=== PATIENT | female | born 1955 | race Caucasian/White ===

== ENCOUNTER 2023-10-19 18:07 | Observation (INO) | payer OTHER ==
[~2023-10-19] VITALS: Ht 157.5 cm; Wt 90.0 kg
[~2023-10-19 18:07] MED LIST: ASCO500T11 PO; ATE50T PO; DOXY-286 PO; ENAL1TAB46 PO; Glipizide PO; INSU70IN9 SC; METF500T PO
[2023-10-19 18:59] VITALS: PULSE 79; RESP 16; O2SAT 96
[2023-10-19 19:10] LABS: Basophils # (auto) 0.1 10 ^3/uL (0-0.2); Basophils % (auto) 0.6 % (0.0-2.0); Eosinophils # (auto) 0.2 10 ^3/uL (0-0.8); Eosinophils % (auto) 1.3 % (0.0-7.0); Hematocrit 37.5 % (36.0-46.0); Hemoglobin 13.2 g/dL (12.2-16.2); Lymphocytes # (auto) 1.1 10 ^3/uL (0.4-5.4); Lymphocytes % (auto) 6.6 % (10.0-50.0); Mean Corpuscular Hemoglobin 29.3 pg (28.0-32.0); Mean Corpuscular Hgb Conc. 35.1 g/dL (32.0-36.0); Mean Corpuscular Volume 83.6 fL (80.0-100.0); Monocytes # (auto) 0.9 10 ^3/uL (0-1.3); Monocytes % (auto) 5.6 % (0.0-12.0); Neutrophils # (auto) 14.2 10 ^3/uL (1.6-8.6); Neutrophils % (auto) 85.9 % (37.0-80.0); Nucleated Red Blood Cells % 0.3 %; Red Blood Cells 4.49 10^6/uL (4.0-5.20); Red Cell Distribution Width 18.5 % (11.8-14.3); White Blood Cell 16.6 10^3/uL (4.4-10.8)
[2023-10-19] MEDS: PIPERACILLIN-TAZOB 3.375GM 100 ML IV ONE (19:10)
[2023-10-19 19:15] VITALS: PULSE 79; RESP 16; O2SAT 96
[2023-10-19] MEDS: VANCOMYCIN 1GM/200ML 200 ML IV ONE (19:38)
[2023-10-19 20:00] LABS: Alanine Aminotransferase 20 U/L (7-40); Albumin 3.5 g/dL (3.2-4.8); Alkaline Phosphatase 163 U/L (46-116); Anion Gap 11 (5-15); Aspartate Aminotransferase 19 U/L (13-40); BUN/Creatinine Ratio 12.3 (10.0-20.0); Bilirubin, Total 0.8 mg/dL (0.2-1.0); Blood Urea Nitrogen 15 mg/dL (9-23); Carbon Dioxide 17 mmol/L (20-30); Chloride 112 mmol/L (98-107); Glucose 295 mg/dL (74-106); Sodium 140 mmol/L (136-145); Total Protein 5.8 g/dL (5.7-8.2)
[2023-10-19 20:09] LABS: Potassium 2.1 mmol/L (3.5-5.1)
[2023-10-19] MEDS: POTASSIUM CHL 20 Meq TABLET PO ONE (20:54)
[2023-10-19] MEDS: ASPirin 81 mg TAB PO ONE (23:18)
[2023-10-19] MEDS: NITROGLYCERIN 2% OINT 1GM PKG TD ONE (23:24)
[2023-10-20] VITALS (8 sets, daily range): BP systolic 135–152; BP diastolic 75–87; PULSE 82–89; RESP 16–24; TEMP 97.8–98.5; O2SAT 95–99
[2023-10-20] MEDS ORDERED: POTASSIUM EFFERVESENT TAB 25 MEQ GT ONE (03:00)
[2023-10-20] MEDS ORDERED: VANCOMYCIN PER PHARMACY 0 MG IV SCH (04:15)
[2023-10-20] MEDS ORDERED: DEXTROSE (50%) 50ML SYRG IV PRN (04:15)
[2023-10-20] MEDS ORDERED: ONDANSETRON HCL 4 MG/2 ML VIAL IV PRN (04:15)
[2023-10-20] MEDS: SODIUM CHLORIDE 0.9% 1,000 ML IV SCH (04:45)
[2023-10-20] MEDS ORDERED: NITROGLYCERIN 0.4 MG SL TAB SL PRN (04:45)
[2023-10-20] MEDS: ENOXAPARIN SOD 80 MG/0.8ML SYRINGE SC ONE (05:00)
[2023-10-20] MEDS: POTASSIUM CHL 20MEQ/100ML 100 ML IV SCH (05:15)
[2023-10-20] MEDS ORDERED: POTASSIUM CHL 20 Meq TABLET PO ONE (05:15)
[2023-10-20] MEDS: POTASSIUM CHL 20 Meq TABLET PO ONE (05:45)
[2023-10-20 06:03] LABS: Basophils # (auto) 0.1 10 ^3/uL (0-0.2); Basophils % (auto) 0.6 % (0.0-2.0); Eosinophils # (auto) 0.3 10 ^3/uL (0-0.8); Eosinophils % (auto) 1.9 % (0.0-7.0); Hematocrit 34.5 % (36.0-46.0); Hemoglobin 12.3 g/dL (12.2-16.2); Lymphocytes % (auto) 6.7 % (10.0-50.0); Mean Corpuscular Hemoglobin 30.1 pg (28.0-32.0); Mean Corpuscular Hgb Conc. 35.7 g/dL (32.0-36.0); Mean Corpuscular Volume 84.3 fL (80.0-100.0); Monocytes # (auto) 0.9 10 ^3/uL (0-1.3); Monocytes % (auto) 6.2 % (0.0-12.0); Neutrophils # (auto) 12.2 10 ^3/uL (1.6-8.6); Neutrophils % (auto) 84.6 % (37.0-80.0); Nucleated Red Blood Cells % 0.1 %; Red Blood Cells 4.09 10^6/uL (4.0-5.20); Red Cell Distribution Width 18.1 % (11.8-14.3); White Blood Cell 14.4 10^3/uL (4.4-10.8)
[2023-10-20] MEDS ORDERED: BENA-36 PO (06:46)
[2023-10-20] MEDS ORDERED: AMLO1TAB23 PO (06:47)
[2023-10-20] MEDS: ACCU-CHEK COMFORT CURVE STRIP VI SCH (07:00)
[2023-10-20] MEDS: InsuLIN REG 1unit/0.01ml Soln (100units/ml) SC SCH ×2 (07:26→22:38)
[2023-10-20 07:37] LABS: Erythrocyte Sedimentation Rate 54 mm/hr (0-20)
[2023-10-20] MEDS: PIPERACILLIN-TAZOB 3.375GM 100 ML IV SCH ×2 (07:52→17:08)
[2023-10-20] MEDS: MORPHINE SULFATE INJ 2 MG/ml SYRG IV PRN (08:43)
[2023-10-20] MEDS ORDERED: ENOXAPARIN SOD 40 MG/0.4 ML SYRINGE SC SCH (10:00)
[2023-10-20] MEDS: BENAZEPRIL HCL 10 MG TAB PO SCH (11:08)
[2023-10-20] MEDS: IOHEXOL 350 MG/ML 100ML IJ ONE (17:11)
[2023-10-20 17:33] LABS: Chloride 110 mmol/L (98-107); Sodium 139 mmol/L (136-145)
[2023-10-20 17:34] LABS: Anion Gap 11 (5-15); Carbon Dioxide 18 mmol/L (20-30)
[2023-10-20 17:35] LABS: Calcium 9.7 mg/dL (8.7-10.4)
[2023-10-20 17:39] LABS: Glucose 176 mg/dL (74-106)
[2023-10-20 17:40] LABS: BUN/Creatinine Ratio 8.8 (10.0-20.0); Blood Urea Nitrogen 10 mg/dL (9-23)
[2023-10-20 17:41] LABS: Potassium 2.5 mmol/L (3.5-5.1)
[2023-10-20] MEDS: POTASSIUM EFFERVESENT TAB 25 MEQ PO ONE (17:45)
[2023-10-20 17:50] LABS: CRP High Sensitivity 11.77 mg/dL (<1.0)
[2023-10-20] MEDS ORDERED: VANCOMYCIN 1GM/200ML 200 ML IV SCH (18:00)
[2023-10-20] MEDS: VANCOMYCIN 1GM/200ML 200 ML IV SCH (20:18)
[2023-10-20] MEDS: HYDROcodone-ACET 5/325MG TAB PO PRN (21:16)
[2023-10-20] MEDS: NYSTATIN TOPICAL POWDER 15GM TOP SCH (22:00)
[2023-10-20] MEDS: ENOXAPARIN SOD 100 MG/1 ML SYRINGE SC SCH (23:17)
[2023-10-21] VITALS (7 sets, daily range): BP systolic 116–167; BP diastolic 73–87; PULSE 74–88; RESP 18–24; TEMP 97.3–98.1; O2SAT 97–100
[2023-10-21] MEDS ORDERED: APIX5TAB PO (07:11)
[2023-10-21] MEDS: hydrALAZINE HCL 20 MG/ML VL IV PRN (07:17)
[2023-10-21] MEDS ORDERED: AUG875T PO (07:59)
[2023-10-21] MEDS ORDERED: DOXY-286 PO (07:59)
[2023-10-21 08:14] LABS: Basophils # (auto) 0.1 10 ^3/uL (0-0.2); Basophils % (auto) 0.7 % (0.0-2.0); Eosinophils # (auto) 0.1 10 ^3/uL (0-0.8); Hematocrit 34.4 % (36.0-46.0); Hemoglobin 12.2 g/dL (12.2-16.2); Lymphocytes # (auto) 1.1 10 ^3/uL (0.4-5.4); Lymphocytes % (auto) 8.5 % (10.0-50.0); Mean Corpuscular Hemoglobin 30.2 pg (28.0-32.0); Mean Corpuscular Hgb Conc. 35.5 g/dL (32.0-36.0); Mean Corpuscular Volume 85.2 fL (80.0-100.0); Monocytes # (auto) 0.8 10 ^3/uL (0-1.3); Monocytes % (auto) 6.1 % (0.0-12.0); Neutrophils # (auto) 11.1 10 ^3/uL (1.6-8.6); Neutrophils % (auto) 83.7 % (37.0-80.0); Nucleated Red Blood Cells % 0.1 %; Red Blood Cells 4.03 10^6/uL (4.0-5.20); Red Cell Distribution Width 18.6 % (11.8-14.3); White Blood Cell 13.3 10^3/uL (4.4-10.8)
[2023-10-21 08:36] LABS: Alanine Aminotransferase 16 U/L (7-40); Albumin 3.3 g/dL (3.2-4.8); Alkaline Phosphatase 156 U/L (46-116); Anion Gap 12 (5-15); Aspartate Aminotransferase 22 U/L (13-40); BUN/Creatinine Ratio 10.3 (10.0-20.0); Bilirubin, Total 0.5 mg/dL (0.2-1.0); Blood Urea Nitrogen 11 mg/dL (9-23); Carbon Dioxide 19 mmol/L (20-30); Chloride 110 mmol/L (98-107); Glucose 154 mg/dL (74-106); Potassium 2.7 mmol/L (3.5-5.1); Sodium 141 mmol/L (136-145); Total Protein 5.7 g/dL (5.7-8.2)
[2023-10-21] MEDS: POTASSIUM CHL 20 Meq TABLET PO ONE (10:57)
[2023-10-21] MEDS: POTASSIUM CHLORIDE 60 MEQ, LIDOCAINE 1% (LOCAL ANESTH.) 6 ML in SODIUM CHL 0.9% 500 ML IV ONE (14:15)
== END 2023-10-21 17:45 | disposition home health service (06) ==
LOC: EDUNIT# 18:07 → ER 18:07 → EDBD 18:07 → INTOOBSV 10-20 04:37 → TELE 10-20 04:37 → TELE-WESTW 10-20 06:40
PROVIDERS: ADMIT Hospitalist; ATTEND Hospitalist
DX: S81.801A Unspecified open wound, right lower leg, initial encounter (principal); S21.001A Unspecified open wound of right breast, initial encounter; L03.115 Cellulitis of right lower limb; L03.031 Cellulitis of right toe; L97.519 Non-pressure chronic ulcer of other part of right foot with unspecified severity; L98.419 Non-pressure chronic ulcer of buttock with unspecified severity; I21.4 Non-ST elevation (NSTEMI) myocardial infarction; I10 Essential (primary) hypertension; E66.01 Morbid (severe) obesity due to excess calories; E11.621 Type 2 diabetes mellitus with foot ulcer; I82.431 Acute embolism and thrombosis of right popliteal vein; E11.51 Type 2 diabetes mellitus with diabetic peripheral angiopathy without gangrene; Z68.36 Body mass index [BMI] 36.0-36.9, adult; Z86.14 Personal history of Methicillin resistant Staphylococcus aureus infection; Z79.4 Long term (current) use of insulin; X58.XXXA Exposure to other specified factors, initial encounter; Y93.89 Activity, other specified; Y92.89 Other specified places as the place of occurrence of the external cause; Y99.8 Other external cause status
CPT/HCPCS: 36415; 71045; 71260; 73660; 73718; 74177; 80048; 80053; 80202; 82962; 83605; 83735; 83880; 84484; 85025; 85379; 85652; 86141; 87040; 87077; 87186; 87205; 93005; 93925; 93970; 96361; 96365; 96366; 96368; 96372; 96375; 99285; G0378; J0360; J1650; J1815; J2270; J2543; J3370; J3480; J7040; Q9967; J2001

== ENCOUNTER 2024-01-25 12:54 | Inpatient (IN) | payer OTHER ==
[~2024-01-25] VITALS: Ht 154.9 cm; Wt 90.2 kg
[~2024-01-25 12:54] MED LIST changes: +AMLO1TAB23 PO; +APIX5TAB PO; -ASCO500T11 PO; -ATE50T PO; +AUG875T PO; +BENA-36 PO; -ENAL1TAB46 PO; -Glipizide PO
--- NOTE | 2024-01-25 13:13 | ECG ---
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
[2024-01-25] MEDS ORDERED: InsuLIN REG 1unit/0.01ml Soln (100units/ml) IV ONE (13:15)
--- NOTE | 2024-01-25 13:20 | ED.PDOC ---
History of Present Illness HPI Comments This is 68-year-old female who comes in to the ED via EMS with chief complain of anxiety. Patient has a past medical history relevant for type 2 diabetes, hypertension, right lower DVT. 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 Patient currently states feeling better, denies any significant chest pain, shortness of breath, dizziness, lightheadedness, headache, abdominal pain, nausea, vomiting. Chief Complaint: Anxiety Time Seen by MD: 13:00 Primary Care Provider: SELMA Reviewed Notes: Nurses Notes Allergies: Coded Allergies: NO KNOWN ALLERGIES (Unverified , 11/14/10) Home Meds Active Scripts Doxycycline Hyclate (DOXYCYCLINE HYCLATE) 100 Mg Tab, 1 TAB PO BID for 14 Days, #28 TAB Prov:SHARON SOMMER MD 10/21/23 Amoxicillin & Pot Clavulanate (AUGMENTIN TABLET) 875 Mg Tb, 875 MG PO BID for 14 Days, #28 TAB Prov:SHARON SOMMER MD 10/21/23 Apixaban Base (ELIQUIS) 5 Mg Tab, 10 MG PO BID for 7 Days, #28 TAB 10MG BID X 7 DAYS THEN 5MG PO BID FOR AT LEAST 6 MONTHS FOR DVT/PE TREATMENT Prov:SHARON SOMMER MD 10/21/23 Apixaban Base (ELIQUIS) 5 Mg Tab, 5 MG PO BID for 30 Days, #60 TAB 2 Refills Prov:SHARON SOMMER MD 10/21/23 Metformin Hydrochloride (Glucophage) 500 Mg Tb, 1000 MG PO IBID for 30 Days, TAB Prov:TAQUERIA POSADAS MD 11/29/13 Insulin Isophane & Reg (Human) (Humulin 70/30) 100 Units/1 Ml Units, 20 UNITS SC IBID for 30 Days, INJ Prov:TAQUERIA POSADAS MD 11/29/13 Reported Medications Amlodipine Besylate (Amlodipine Besylate) 10 Mg Tab, 1 TAB PO DAILY, #30 TAB 5 Refills 10/20/23 Benazepril Hcl (Benazepril Hcl) 20 Mg Tab, 1 TAB PO BID, #30 TAB 5 Refills 10/20/23 Information Source: Patient Mode of Arrival: EMS Severity: Mild Timing: Hours Duration: Since onset Past Medical History PAST MEDICAL HISTORY: Anemia, DM, HTN, UTI'S 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 OPERATOR History, Uterine Fibroids Family History Family History: No family hx of HTN Social History Smoker: Non-Smoker Alcohol: Denies ETOH Use Drugs: Denies Drug Use Lives In: Home Constitutional: denies: chills, diaphoresis, fatigue, fever, malaise, sweats, weakness, others EENTM: reports: blurred vision; denies: double vision, ear bleeding, ear discharge, ear drainage, ear pain, ear ringing, eye pain, eye redness, hearing loss, mouth pain, mouth swelling, nasal discharge, nose bleeding, nose congestion, nose pain, photophobia, tearing, throat pain, throat swelling, voice changes, others Respiratory: reports: shortness of breath; denies: cough, hemoptysis, orthopnea, SOB at rest, SOB with excertion, stridor, wheezing, others Cardiovascular: reports: dizzy spells; denies: chest pain, diaphoresis, Dyspnea on exertion, edema, irregular heart beat, left arm pain, lightheadedness, palpitations, PND, syncope, others Gastrointestinal: denies: abdomen distended, abdominal pain, blood streaked bowels, constipated, diarrhea, dysphagia, difficulty swallowing, hematemesis, melena, nausea, poor appetite, poor fluid intake, rectal bleeding, rectal pain, vomiting, others Genitourinary: denies: abnormal vagina bleeding, burning, dyspareunia, dysuria, flank pain, frequency, hematuria, incontinence, pain, , vagina discharge, urgency, others Neurological: reports: dizziness, fainting, headache; denies: left sided numbness, left sided weakness, numbness, paresthesia, pre-existing deficit, right sided numbness, right sided weakness, seizure, speech problems, tingling, tremors, weakness, others Musculoskeletal: denies: back pain, gout, joint pain, joint swelling, muscle pain, muscle stiffness, neck pain, others Integumetry: denies: bruises, change in color, change in hair/nails, dryness, laceration, lesions, lumps, rash, wounds, others Allergic/Immunocompromised: denies: Difficulty Healing, Frequent Infections, Hives, Itching, others Hematologic/Lymphatic: denies: anemia, blood clots, easy bleeding, easy bruising, swollen glands, others Endocrine: denies: excessive hunger, excessive sweating, excessive thirst, excessive urination, flushing, intolerance to cold, intolerance to heat, unexplained weight gain, unexplained weight loss, others Psychiatric: denies: anxiety, bipolar disorder, depression, hopeless, panic disorder, schizophrenia, sleepless, suicidal, others Physical Exam General Appearance: Mild Distress, Obese HEENT: Normal ENT Inspection, Pharynx Normal, TMs Normal Neck: Full Range of Motion, Non-Tender, Normal, Normal Inspection Respiratory: Chest Non-Tender, Lungs Clear, No Accessory Muscle Use, No Respiratory Distress, Normal Breath Sounds Cardiovascular: No Edema, No JVD, No Murmur, No Gallop, Normal Peripheral Pulses, Regular Rate/Rhythm Breast Exam: Deferred Gastrointestinal: No Organomegaly, Non Tender, No Pulsatile Mass, Normal Bowel Sounds, Soft Genitalia: Deferred Pelvic: Deferred Rectal: Deferred Extremities: No calf tenderness, Normal capillary refill, Normal inspection, Normal range of motion, Non-tender, No pedal edema 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 Was a procedure done?: No Differential Dx Considerations may include: Anxiety disorder, panic attack, hyperglycemia due to type 2 diabetes, uncontrolled type 2 diabetes, sinus tachycardia, electrolyte imbalance, X-Ray, Labs, Meds, VS Vital Signs Date Time Temp Pulse Resp B/P (MAP) Pulse Ox O2 Delivery O2 Flow Rate FiO2 01/25/24 15:49 Room Air* 0 21 01/25/24 14:15 106 18 100 Room Air 01/25/24 14:15 97.4 106 18 124/67 (86) 100 97.4 01/25/24 13:11 106 01/25/24 12:57 98.9 106 16 100/64 (76) 99 Lab Test 01/25/24 14:04 Range/Units White Blood Count 10.4 4.4-10.8 10^3/uL Red Blood Count 3.92 L 4.0-5.20 10^6/uL Hemoglobin 12.7 12.2-16.2 g/dL Hematocrit 38.7 36.0-46.0 % Mean Corpuscular Volume 98.8 80.0-100.0 fL Mean Corpuscular Hemoglobin 32.4 H 28.0-32.0 pg Mean Corpuscular Hemoglobin Concent 32.8 32.0-36.0 g/dL Red Cell Distribution Width 18.8 H 11.8-14.3 % Platelet Count 333 140-450 10^3/uL Mean Platelet Volume 7.6 6.9-10.8 fL Neutrophils (%) (Auto) 85.4 H 37.0-80.0 % Lymphocytes (%) (Auto) 8.1 L 10.0-50.0 % Monocytes (%) (Auto) 4.9 0.0-12.0 % Eosinophils (%) (Auto) 0.5 0.0-7.0 % Basophils (%) (Auto) 1.1 0.0-2.0 % Neutrophils # (Auto) 8.9 H 1.6-8.6 10 ^3/uL Lymphocytes # (Auto) 0.8 0.4-5.4 10 ^3/uL Monocytes # (Auto) 0.5 0-1.3 10 ^3/uL Eosinophils # (Auto) 0.1 0-0.8 10 ^3/uL Basophils # (Auto) 0.1 0-0.2 10 ^3/uL Nucleated Red Blood Cells 0.0 % Platelet Estimate Adequate Schistocytes Few Sodium Level 138 136-145 mmol/L Potassium Level 5.2 H 3.5-5.1 mmol/L Chloride Level 108 H 98-107 mmol/L Carbon Dioxide Level 24 20-31 mmol/L Anion Gap 6 5-15 Blood Urea Nitrogen 26 H 9-23 mg/dL Creatinine 1.33 H 0.550-1.02 mg/dL Glomerular Filtration Rate Calc 44 >90 mL/min BUN/Creatinine Ratio 19.5 10.0-20.0 Serum Glucose 357 H 74-106 mg/dL Calcium Level 9.8 8.7-10.4 mg/dL Troponin I High Sensitivity 474 *H </=34 ng/L B-Type Natriuretic Peptide 530.39 0-100 pg/mL Current Medications Medications (Trade) Dose Ordered Sig/Kate Route Start Time Stop Time Status Last Admin Sodium Chloride 1,000 ml @ 1,000 mls/hr Q1H ONCE IV 01/25/24 13:15 01/25/24 14:14 DC 01/25/24 15:43 Ketorolac Tromethamine (Toradol Injection) 15 mg ONCE ONCE IV 01/25/24 13:45 01/25/24 14:05 DC 01/25/24 15:43 Aspirin 325 mg ONCE ONCE PO 01/25/24 16:15 01/25/24 16:19 DC 01/25/24 16:22 On my initial assessment, patient states feeling better denied any significant shortness of breath, chest pain, headache. Blood glucose was 365, other vital signs were stable. We will order CBC, BMP, BNP, UA, chest x-ray, EKG, troponins, we will also administer 1 L of NS. We will continue to reassess. On reassessment, EKG showed T-wave flattening in anterior lateral leads, no ST wave changes, troponins were elevated to the 400s, chest x-ray shows cardiomegaly, patient states having sporadic chest pain , who gave aspirin 325 mg p.o., patient is currently not complaining of chest pain, is noted that her kidney function has worsened compared to last time, BNP was also elevated, glucose was also around 300s, we will put the patient for admission for Cardiology be consultation due to NSTEMI likely related to BERNADINE and uncontrolled type 2 diabetes. Images Reviewed?: Images reviewed and evaluated by me Time of 1ST Reevaluation: 13:14 Reevaluation 1ST: Unchanged Patient Education/Counseling: Diagnosis, Treatment Family Education/Counseling: No Family Present Departure 1 Departure Time of Disposition: 16:38 Impression: Primary Impression: Non-STEMI (non-ST elevated myocardial infarction) Additional Impressions: Diabetes mellitus out of control BERNADINE (acute kidney injury) Disposition: 09 ADMITTED INPATIENT Condition: Guarded Critical Care Note Critical Care Time?: No Stability Stability form required: No Heart Score Heart Score: Heart Score Response (Comments) Value History Slightly Suspicious 0 EKG Repolarization Disturb 1 Age >65 2 Risk Factors >3 or Hx ASHD 2 Troponin >3 x's Normal limit 2 Total 7 LEISA LARA RESIDENT Jan 25, 2024 13:20
--- NOTE | 2024-01-25 13:47 | DVH ---
CHEST RADIOGRAPH Indication:sob Technique: Single frontal view of the chest was obtained COMPARISON: XY CHEST PORTABLE on DOS: 10/19/23 FINDINGS: Lines and Tubes: None Lungs: Clear Pleura: No effusion. No pneumothorax. Cardiomediastinal contours: Cardiomegaly Bones: Unremarkable IMPRESSION: No acute disease.
[2024-01-25 14:18] LABS: Basophils # (auto) 0.1 10 ^3/uL (0-0.2); Basophils % (auto) 1.1 % (0.0-2.0); Eosinophils # (auto) 0.1 10 ^3/uL (0-0.8); Eosinophils % (auto) 0.5 % (0.0-7.0); Hematocrit 38.7 % (36.0-46.0); Hemoglobin 12.7 g/dL (12.2-16.2); Lymphocytes # (auto) 0.8 10 ^3/uL (0.4-5.4); Lymphocytes % (auto) 8.1 % (10.0-50.0); Mean Corpuscular Hemoglobin 32.4 pg (28.0-32.0); Mean Corpuscular Hgb Conc. 32.8 g/dL (32.0-36.0); Mean Corpuscular Volume 98.8 fL (80.0-100.0); Monocytes # (auto) 0.5 10 ^3/uL (0-1.3); Monocytes % (auto) 4.9 % (0.0-12.0); Neutrophils # (auto) 8.9 10 ^3/uL (1.6-8.6); Neutrophils % (auto) 85.4 % (37.0-80.0); Platelet Count (auto) 333 10^3/uL (140-450); Red Blood Cells 3.92 10^6/uL (4.0-5.20); Red Cell Distribution Width 18.8 % (11.8-14.3); White Blood Cell 10.4 10^3/uL (4.4-10.8)
[2024-01-25 14:29] LABS: Chloride 108 mmol/L (98-107); Potassium 5.2 mmol/L (3.5-5.1); Sodium 138 mmol/L (136-145)
[2024-01-25 14:30] LABS: Anion Gap 6 (5-15); Carbon Dioxide 24 mmol/L (20-31)
[2024-01-25 14:31] LABS: Calcium 9.8 mg/dL (8.7-10.4)
[2024-01-25 14:36] LABS: BUN/Creatinine Ratio 19.5 (10.0-20.0); Blood Urea Nitrogen 26 mg/dL (9-23); Glucose 357 mg/dL (74-106)
[2024-01-25 14:39] LABS: Platelet Estimate Adequate
[2024-01-25] MEDS: ENOXAPARIN SOD 100 MG/1 ML SYRINGE SC ONE (15:34)
[2024-01-25] MEDS: KETOROLAC TROMETH 30 MG/ML 1ML VIAL IV ONE (15:43)
[2024-01-25] MEDS: SODIUM CHLORIDE 0.9% 1,000 ML IV ONE ×2 (15:43→21:57)
[2024-01-25] MEDS: ASPirin 325 MG TAB PO ONE (16:22)
[2024-01-25] MEDS ORDERED: MORPHINE SULFATE INJ 2 MG/ml SYRG IV PRN ×2 (16:45)
[2024-01-25] MEDS ORDERED: ACETAMINOPHEN 325 MG TAB PO PRN (16:45)
[2024-01-25] MEDS ORDERED: NITROGLYCERIN 0.4 MG SL TAB SL PRN (16:45)
[2024-01-25] MEDS ORDERED: HYDROcodone-ACET 5/325MG TAB PO PRN (16:45)
[2024-01-25] MEDS: InsuLIN REG 1unit/0.01ml Soln (100units/ml) SC ONE (16:56)
[2024-01-25] MEDS ORDERED: DEXTROSE (50%) 50ML SYRG IV PRN (17:00)
[2024-01-25] MEDS: ACCU-CHEK COMFORT CURVE STRIP VI SCH (17:00)
[2024-01-25] MEDS: InsuLIN REG 1unit/0.01ml Soln (100units/ml) SC SCH ×2 (17:00→22:27)
--- NOTE | 2024-01-25 17:00 | DVHHP2 ---
Admitting Diagnosis: NSTEMI History of Present Illness HPI Patient is a 68F with PMH of T2DM on glargine and metformin, history of cellulitis, history of DVT who presents with worsening shortness of breath over the past month. Patient presented to the ER for this reason and was noted to have elevated troponin without chest pain. She denies history of smoking, cardiac history such as TN. At bedside, there is no tenderness to palpation to the chest. Patient notes she has not been fully compliant with her diabetes medications. Home Meds Active Scripts Doxycycline Hyclate (DOXYCYCLINE HYCLATE) 100 Mg Tab, 1 TAB PO BID for 14 Days, #28 TAB Prov:SHARON SOMMER MD 10/21/23 Amoxicillin & Pot Clavulanate (AUGMENTIN TABLET) 875 Mg Tb, 875 MG PO BID for 14 Days, #28 TAB Prov:SHARON SOMMER MD 10/21/23 Apixaban Base (ELIQUIS) 5 Mg Tab, 10 MG PO BID for 7 Days, #28 TAB 10MG BID X 7 DAYS THEN 5MG PO BID FOR AT LEAST 6 MONTHS FOR DVT/PE TREATMENT Prov:SHARON SOMMER MD 10/21/23 Apixaban Base (ELIQUIS) 5 Mg Tab, 5 MG PO BID for 30 Days, #60 TAB 2 Refills Prov:SHARON SOMMER MD 10/21/23 Metformin Hydrochloride (Glucophage) 500 Mg Tb, 1000 MG PO IBID for 30 Days, TAB Prov:TAQUERIA POSADAS MD 11/29/13 Insulin Isophane & Reg (Human) (Humulin 70/30) 100 Units/1 Ml Units, 20 UNITS SC IBID for 30 Days, INJ Prov:TAQUERIA POSADAS MD 11/29/13 Reported Medications Amlodipine Besylate (Amlodipine Besylate) 10 Mg Tab, 1 TAB PO DAILY, #30 TAB 5 Refills 10/20/23 Benazepril Hcl (Benazepril Hcl) 20 Mg Tab, 1 TAB PO BID, #30 TAB 5 Refills 10/20/23 Past Medical History Endocrine: IDDM Patient Family History: Cancer G8 MOTHER Smoker: No Hx (Negative) Review of Systems Pulmonary/Respiratory: Dyspnea H&P Exam Vital Signs Vital Signs Date Time Temp Pulse Resp B/P (MAP) Pulse Ox O2 Delivery O2 Flow Rate FiO2 01/25/24 15:49 Room Air* 0 21 01/25/24 14:15 106 18 100 01/25/24 14:15 97.4 124/67 (86) 97.4 General Appeara: Well developed Pulmonary/Respiratory: Normal inspection, Normal breath sounds Cardiovascular/Chest: Normal inspection, Tachycardia Labs/Xrays Labs Test 01/25/24 16:38 01/25/24 14:04 Range/Units White Blood Count 10.4 4.4-10.8 10^3/uL Red Blood Count 3.92 L 4.0-5.20 10^6/uL Hemoglobin 12.7 12.2-16.2 g/dL Hematocrit 38.7 36.0-46.0 % Mean Corpuscular Volume 98.8 80.0-100.0 fL Mean Corpuscular Hemoglobin 32.4 H 28.0-32.0 pg Mean Corpuscular Hemoglobin Concent 32.8 32.0-36.0 g/dL Red Cell Distribution Width 18.8 H 11.8-14.3 % Platelet Count 333 140-450 10^3/uL Mean Platelet Volume 7.6 6.9-10.8 fL Neutrophils (%) (Auto) 85.4 H 37.0-80.0 % Lymphocytes (%) (Auto) 8.1 L 10.0-50.0 % Monocytes (%) (Auto) 4.9 0.0-12.0 % Eosinophils (%) (Auto) 0.5 0.0-7.0 % Basophils (%) (Auto) 1.1 0.0-2.0 % Neutrophils # (Auto) 8.9 H 1.6-8.6 10 ^3/uL Lymphocytes # (Auto) 0.8 0.4-5.4 10 ^3/uL Monocytes # (Auto) 0.5 0-1.3 10 ^3/uL Eosinophils # (Auto) 0.1 0-0.8 10 ^3/uL Basophils # (Auto) 0.1 0-0.2 10 ^3/uL Nucleated Red Blood Cells 0.0 % Platelet Estimate Adequate Schistocytes Few Sodium Level 138 136-145 mmol/L Potassium Level 5.2 H 3.5-5.1 mmol/L Chloride Level 108 H 98-107 mmol/L Carbon Dioxide Level 24 20-31 mmol/L Anion Gap 6 5-15 Blood Urea Nitrogen 26 H 9-23 mg/dL Creatinine 1.33 H 0.550-1.02 mg/dL Glomerular Filtration Rate Calc 44 >90 mL/min BUN/Creatinine Ratio 19.5 10.0-20.0 Serum Glucose 357 H 74-106 mg/dL Calcium Level 9.8 8.7-10.4 mg/dL B-Type Natriuretic Peptide 530.39 0-100 pg/mL Assessment/Plan Primary Diagnosis 1. NSTEMI 2' Diagnosis/Co-morbidities 2. Type 2 DM 3. BERNADINE 4. Morbid Obesity Plan Admit to telemetry. Cardiology Dr. Diaz consulted. Heparin drip started. Patient refused lovenox. Trend troponin. Insulin sliding scale. Glargine 15U qbedtime. Hgb A1c ordered. Nephrology consulted for BERNADINE. US renal ordered. 1L NS bolus. Plan discussed with: Patient DEJAN KRAMER DO Jan 25, 2024 17:00
[2024-01-25] MEDS: HEPARIN SODIUM (PORCINE) 5000 UNITS/ML 1ML VIAL IV ONE (17:44)
[2024-01-25] MEDS: HEPARIN DRIP/D5W 100UNITS/ML 250 ML IV SCH (17:45)
[2024-01-25 18:11] LABS: INR 1.08 (0.9-1.15); Prothrombin Time 11.4 sec (9.3-11.8)
--- NOTE | 2024-01-25 21:09 | DVHSR ---
APPROVED REPORT EXAM: Two-dimensional and M-mode echocardiogram with Doppler and color Doppler. Blood Pressure: 124/67 mmHg INDICATION NSTEMI RISK FACTORS Obesity: Height: 5'1", Weight: 198 DIMENSIONS LVDd3.2 (3.8-5.7cm)LA (2D)3.3 (1.9-4.0cm)Aortic Root3.6 (2.0-3.7cm) LVDs2.3 (2.5-4.0cm)LA (MM) (1.9-4.0cm)Aortic Cusp Exc1.6 (1.5-2.0cm) EF (%) 54.0 (55-70%)Rt. Atrium5.3 (1.9-4.0cm)Asc. Aorta cm IVSd1.2 (0.7-1.1cm)RV (D)4.7 (1.8-2.4cm) PWd1.2 (0.7-1.1cm) Mitral Valve MitralMitral Stenosis E wave0.52m/sMV Mean GR.mmHg A wave0.95m/sMV Peak GR.mmHg E/A ratio0.52D MVAcm2 DECEL [id number] 1/2 Timems Aortic Valve Aortic ValveAortic Stenosis V10.81m/Katie Mean GR.3mmHg V21.28m/Katie Peak GR.7mmHg LVOT Diameter1.9 (1.8-2.4cm)Doppler AVA1.79cm2 Pulmonic Valve V20.88m/s Tricuspid Valve TR Velocity5.25m/s [id number] Other Information Technically limited study due to body habitus. Conclusion SEVERE LVH SEVERE LV DIASTOLIC DYSFUNCTION LV EJECTION FRACTION IS 70% SIGNIFICANTLY DILATED RV AND RA SEVERE HYPOKINESIS OF RV SEVERE TR CRITICAL PULMONARY HYPERTENSION RVSP IS 118 MM OF HG AND IS VERY HIGH MILD PERICARDIAL EFFUSION STUDY REVEAL SEVERE RV FAILURE
[2024-01-25] MEDS: INSULIN LANTUS (GLARGINE) 1 /0.01ml (100units/ml) SC SCH (22:30)
[2024-01-25] MEDS: SODIUM CHLORIDE 0.9% 1,000 ML IV SCH (23:14)
--- NOTE | 2024-01-25 23:26 | DVHINCON2 ---
Date of service: Jan 25, 2024 Referring Physician Karly Reason for Consultation NSTEMI History of Present Illness This is a 68 year old female with a PMH of Anemia, type 2 diabetes, hypertension, right lower DVT who is brought in by EMS with complaints of anxiety. Patient reported that early this morning she started having headaches, blurry vision, and her glucose level was around 500. She started experiencing shortness of breath, feeling anxious. EMS was called, on the field her blood pressure was 113/70, heart rate was around 105, saturating 92% on room air, glucose level was around 470 and it dropped to 348. Patient currently states feeling better. EKG showed T-wave flattening in anterior lateral leads, no ST wave changes. Chest x-ray shows NAD. Patient states having sporadic chest pain, received Aspirin 325 mg p.o. Troponin 474 > 2020 > 2820. BPN 530. K 5., BUN 26, DRESS FINISHER 1.33. Patient was admitted to the hospital. I am asked to consult on this patient. Family History: Cancer G8 MOTHER Allergies: Coded Allergies: NO KNOWN ALLERGIES (Unverified , 11/14/10) Home Meds Active Scripts Doxycycline Hyclate (DOXYCYCLINE HYCLATE) 100 Mg Tab, 1 TAB PO BID for 14 Days, #28 TAB Prov:SHARON SOMMER MD 10/21/23 Amoxicillin & Pot Clavulanate (AUGMENTIN TABLET) 875 Mg Tb, 875 MG PO BID for 14 Days, #28 TAB Prov:SHARON SOMMER MD 10/21/23 Apixaban Base (ELIQUIS) 5 Mg Tab, 10 MG PO BID for 7 Days, #28 TAB 10MG BID X 7 DAYS THEN 5MG PO BID FOR AT LEAST 6 MONTHS FOR DVT/PE TREATMENT Prov:SHARON SOMMER MD 10/21/23 Apixaban Base (ELIQUIS) 5 Mg Tab, 5 MG PO BID for 30 Days, #60 TAB 2 Refills Prov:SHARON SOMMER MD 10/21/23 Metformin Hydrochloride (Glucophage) 500 Mg Tb, 1000 MG PO IBID for 30 Days, TAB Prov:TAQUERIA POSADAS MD 11/29/13 Insulin Isophane & Reg (Human) (Humulin 70/30) 100 Units/1 Ml Units, 20 UNITS SC IBID for 30 Days, INJ Prov:TAQUERIA POSADAS MD 11/29/13 Reported Medications Amlodipine Besylate (Amlodipine Besylate) 10 Mg Tab, 1 TAB PO DAILY, #30 TAB 5 Refills 10/20/23 Benazepril Hcl (Benazepril Hcl) 20 Mg Tab, 1 TAB PO BID, #30 TAB 5 Refills 10/20/23 Current Medications Current Medications Medications (Trade) Dose Ordered Sig/Akte Route PRN Reason Start Time Stop Time Status Last Admin Heparin Sodium/ Dextrose 250 ml @ 10 mls/hr Q24H IV 01/25/24 16:45 01/25/24 17:45 Acetaminophen (Tylenol Tablet) 325 mg Q4HP PRN PO MILD PAIN (1-3 PAIN SCALE) 01/25/24 16:45 Acetaminophen/ Hydrocodone Bitart ([place] 5/325MG Tab) 1 tab Q4HP PRN PO MODERATE PAIN (4-6 PAIN SCALE) 01/25/24 16:45 Morphine Sulfate 2 mg Q4HPRN PRN IV SEVERE PAIN (7-10 PAIN SCALE) 01/25/24 16:45 Nitroglycerin (Ntrostat Sublingual) 0.4 mg Q5MINP PRN SL FOR CHEST PAIN 01/25/24 16:45 Morphine Sulfate 2 mg Q30M PRN IV FOR CHEST PAIN 01/25/24 16:45 Diagnostic Test (Pha) (Accu-Chek Comfort Curve T) 1 strip ACHS 01/25/24 17:00 01/25/24 22:27 Insulin Human Regular (InsuLIN R) HS SC 01/25/24 22:00 01/25/24 22:27 Insulin Human Regular (InsuLIN R) AC SC 01/25/24 17:00 Dextrose 50 ml UD PRN IV Blood Sugar LESS THAN 60 01/25/24 17:00 Insulin Glargine (Lantus) 15 units HS SC 01/25/24 22:00 01/25/24 22:30 Sodium Chloride 1,000 ml @ 75 mls/hr [id number] IV 01/25/24 22:45 01/25/24 23:14 Review of Systems Constitutional: denies: chills, diaphoresis, fatigue, fever, malaise, sweats, weakness, others EENTM: reports: blurred vision; denies: double vision, ear bleeding, ear discharge, ear drainage, ear pain, ear ringing, eye pain, eye redness, hearing loss, mouth pain, mouth swelling, nasal discharge, nose bleeding, nose congestion, nose pain, photophobia, tearing, throat pain, throat swelling, voice changes, others Respiratory: reports: shortness of breath; denies: cough, hemoptysis, o rthopnea, SOB at rest, SOB with excertion, stridor, wheezing, others Cardiovascular: reports: dizzy spells; denies: chest pain, diaphoresis, Dyspnea on exertion, edema, irregular heart beat, left arm pain, lightheadedness, palpitations, PND, syncope, others Gastrointestinal: denies: abdomen distended, abdominal pain, blood streaked bowels, constipated, diarrhea, dysphagia, difficulty swallowing, hematemesis, melena, nausea, poor appetite, poor fluid intake, rectal bleeding, rectal pain, vomiting, others Genitourinary: denies: abnormal vagina bleeding, burning, dyspareunia, dysuria, flank pain, frequency, hematuria, incontinence, pain, , vagina discharge, urgency, others Neurological: reports: dizziness, fainting, headache; denies: left sided numbness, left sided weakness, numbness, paresthesia, pre-existing deficit, right sided numbness, right sided weakness, seizure, speech problems, tingling, tremors, weakness, others Musculoskeletal: denies: back pain, gout, joint pain, joint swelling, muscle pain, muscle stiffness, neck pain, others Integumetry: denies: bruises, change in color, change in hair/nails, dryness, laceration, lesions, lumps, rash, wounds, others Allergic/Immunocompromised: denies: Difficulty Healing, Frequent Infections, Hives, Itching, others Hematologic/Lymphatic: denies: anemia, blood clots, easy bleeding, easy bruising, swollen glands, others Endocrine: denies: excessive hunger, excessive sweating, excessive thirst, excessive urination, flushing, intolerance to cold, intolerance to heat, unexplained weight gain, unexplained weight loss, others Psychiatric: denies: anxiety, bipolar disorder, depression, hopeless, panic disorder, schizophrenia, sleepless, suicidal, others Vital Signs Vital Signs Date Time Temp Pulse Resp B/P (MAP) Pulse Ox O2 Delivery O2 Flow Rate FiO2 01/25/24 19:35 Room Air* 0 21 01/25/24 18:02 93 118/64 (82) 01/25/24 14:15 18 100 01/25/24 14:15 97.4 97.4 Physical Exam GENERAL: Awake, alert, oriented. Obese. LUNGS: Clear. CARDIOVASCULAR: Heart sounds are good. ABDOMEN: Soft. Labs/Diagnostic Data Labs Test 01/25/24 22:22 01/25/24 18:28 01/25/24 14:04 Range/Units POC Glucose 158 H 70-106 mg/dl Troponin I High Sensitivity 2820 *H </=34 ng/L White Blood Count 10.4 4.4-10.8 10^3/uL Red Blood Count 3.92 L 4.0-5.20 10^6/uL Hemoglobin 12.7 12.2-16.2 g/dL Hematocrit 38.7 36.0-46.0 % Mean Corpuscular Volume 98.8 80.0-100.0 fL Mean Corpuscular Hemoglobin 32.4 H 28.0-32.0 pg Mean Corpuscular Hemoglobin Concent 32.8 32.0-36.0 g/dL Red Cell Distribution Width 18.8 H 11.8-14.3 % Platelet Count 333 140-450 10^3/uL Mean Platelet Volume 7.6 6.9-10.8 fL Neutrophils (%) (Auto) 85.4 H 37.0-80.0 % Lymphocytes (%) (Auto) 8.1 L 10.0-50.0 % Monocytes (%) (Auto) 4.9 0.0-12.0 % Eosinophils (%) (Auto) 0.5 0.0-7.0 % Basophils (%) (Auto) 1.1 0.0-2.0 % Neutrophils # (Auto) 8.9 H 1.6-8.6 10 ^3/uL Lymphocytes # (Auto) 0.8 0.4-5.4 10 ^3/uL Monocytes # (Auto) 0.5 0-1.3 10 ^3/uL Eosinophils # (Auto) 0.1 0-0.8 10 ^3/uL Basophils # (Auto) 0.1 0-0.2 10 ^3/uL Nucleated Red Blood Cells 0.0 % Platelet Estimate Adequate Schistocytes Few Prothrombin Time 11.4 9.3-11.8 sec Prothrombin Time INR 1.08 0.9-1.15 Activated Partial Thromboplast Time 29.0 24.5-34.5 SEC Sodium Level 138 136-145 mmol/L Potassium Level 5.2 H 3.5-5.1 mmol/L Chloride Level 108 H 98-107 mmol/L Carbon Dioxide Level 24 20-31 mmol/L Anion Gap 6 5-15 Blood Urea Nitrogen 26 H 9-23 mg/dL Creatinine 1.33 H 0.550-1.02 mg/dL Glomerular Filtration Rate Calc 44 >90 mL/min BUN/Creatinine Ratio 19.5 10.0-20.0 Serum Glucose 357 H 74-106 mg/dL Calcium Level 9.8 8.7-10.4 mg/dL B-Type Natriuretic Peptide 530.39 0-100 pg/mL Assessment NSTEMI. Type 2 DM. BERNADINE. Morbid Obesity. Plan/Recommendation I agree with your ongoing assessment and care of plan. Trend troponin. 1L NS bolus. Echocardiogram. Cardiac catheterization. Risks and benefits were discussed with the patient. NPO at midnight. Morphine and [place] for pain management. Heparin drip per protocol. Additional plan as per the hospital course. A total of 45 minutes was spent reviewing the patient record, examining the patient, making a diagnostic and therapeutic plan, discussing this plan with medical personnel, following up on diagnostic studies and following the patient for clinical stability excluding any and all procedures. At least 50% of this time was spent in direct, [id number] contact. Plan discussed with: Patient BENI HAYDEN MD Jan 25, 2024 23:26
[2024-01-26] VITALS (10 sets, daily range): BP systolic 110–159; BP diastolic 78–103; PULSE 101–116; RESP 14–20; TEMP 97.5–98.3; O2SAT 64–97
[2024-01-26 01:02] LABS: INR 1.13 (0.9-1.15); Partial Thromboplastin Time 42.6 SEC (24.5-34.5); Prothrombin Time 11.9 sec (9.3-11.8)
[2024-01-26] MEDS: HEPARIN DRIP/D5W 100UNITS/ML 250 ML IV SCH (01:45)
[2024-01-26 05:42] LABS: Basophils # (auto) 0.1 10 ^3/uL (0-0.2); Basophils % (auto) 1.8 % (0.0-2.0); Eosinophils # (auto) 0.2 10 ^3/uL (0-0.8); Hematocrit 33.8 % (36.0-46.0); Hemoglobin 11.3 g/dL (12.2-16.2); Lymphocytes # (auto) 1.8 10 ^3/uL (0.4-5.4); Lymphocytes % (auto) 23.3 % (10.0-50.0); Mean Corpuscular Hemoglobin 32.9 pg (28.0-32.0); Mean Corpuscular Hgb Conc. 33.6 g/dL (32.0-36.0); Monocytes # (auto) 0.6 10 ^3/uL (0-1.3); Monocytes % (auto) 7.5 % (0.0-12.0); Neutrophils % (auto) 65.4 % (37.0-80.0); Platelet Count (auto) 331 10^3/uL (140-450); Red Blood Cells 3.45 10^6/uL (4.0-5.20); Red Cell Distribution Width 18.7 % (11.8-14.3); White Blood Cell 7.6 10^3/uL (4.4-10.8)
[2024-01-26 06:04] LABS: Alanine Aminotransferase 20 U/L (7-40); Albumin 3.4 g/dL (3.2-4.8); Alkaline Phosphatase 176 U/L (46-116); Anion Gap 8 (5-15); Aspartate Aminotransferase 39 U/L (13-40); BUN/Creatinine Ratio 24.1 (10.0-20.0); Bilirubin, Total 0.6 mg/dL (0.2-1.0); Blood Urea Nitrogen 27 mg/dL (9-23); Calcium 9.3 mg/dL (8.7-10.4); Carbon Dioxide 20 mmol/L (20-31); Chloride 112 mmol/L (98-107); Glucose 113 mg/dL (74-106); Potassium 4.5 mmol/L (3.5-5.1); Sodium 140 mmol/L (136-145); Total Protein 5.9 g/dL (5.7-8.2)
[2024-01-26 06:25] LABS: Anisocytosis Slight; Platelet Estimate Adequate
[2024-01-26] MEDS: ADENOSINE 6 MG/2 ML INJ IV STA (07:01)
--- NOTE | 2024-01-26 07:35 | RESUS ---
CODE ASSIST ASSESSSMENT Initial Information Code Assist Date: Jan 26, 2024 Code Assist Time: 06:50 Location of Arrest: [facility] Room [facility] Provider Name SETH TREJO Time Notified: 06:50 Time PMD returned call: 06:50 Crash Cart Opened and Supplies: Yes Situation Staff concerned/worried, speci: HR >130 Situation comment: PT C/O OF PALPITATIONS, SVT NOTED ON MONITOR, 4 MG OF ADENOSIN GIVEN. PT COVERTED TO ST 107, BP 118/64. Background Background: This is 68-year-old femaLE admitted on 01/24 with chief complain of anxiety. Patient has a past medical history relevant for type 2 diabetes, hypertension, right lower DVT. 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 Assessment Temperature (Fahrenheit): 97.6 Blood Pressure Systolic: 110 Blood Pressure Diastolic: 88 Respiratory Rate: 20 O2 Sat by Pulse Oximetry: 93 Recommendations/Interventions Medications and Responses : Medication Time: 06:58 ADULT Medications Given: adenosin 4 Heart Rate: 107 EKG Rhythm: Sinus Tachycardia Blood Pressure Systolic: 118 Blood Pressure Diastolic: 64 Respiratory Rate: 20 O2 Sat by Pulse Oximetry: 97 Outcome Outcome: Problem Resolved Follow up Report Follow up Report choice provider to be called Team Members Team Members NEIL ANN LAP CHECKER, PAT RN HS, MARY ICU, DENIS BOO CHARGE ICU, ALLY CHARGE, ARMANDO BROCK SILVIA Jan 26, 2024 07:35
[2024-01-26] MEDS ORDERED: ADENOSINE 6 MG/2 ML INJ IV ONE (08:04)
[2024-01-26] MEDS: HEPARIN IN NS 1000Units/500mL 1,500 ML ONE (08:30)
[2024-01-26] MEDS: IODIXANOL 320MG/ML 100ML BTL IV ONE ×2 (08:30→09:20)
[2024-01-26] MEDS: LIDOCAINE 2%HCL (LOCAL ANESTH.) INJ 20ML MDV ONE (09:20)
[2024-01-26] MEDS: MIDAZOLAM HCL 2MG/2ML 2ml VIAL (1mg/ml) ONE (09:21)
[2024-01-26] MEDS: fentaNYL CITRATE 100 MCG/2 ML VL ONE (09:21)
[2024-01-26] MEDS: VERAPAMIL 2.5MG/ML INJ 2ML VIAL IV ONE (09:22)
[2024-01-26] MEDS: SODIUM CHL 0.9% 0 ML ONE (09:24)
[2024-01-26] MEDS: ANGIOMAX 250 MG VIAL IV ONE (09:24)
[2024-01-26] MEDS ORDERED: ATOR40TA52 PO (10:28)
[2024-01-26] MEDS ORDERED: CLOP75TA28 PO (10:28)
[2024-01-26] MEDS ORDERED: ASPI-325 PO (10:29)
[2024-01-26] MEDS ORDERED: CARV-214 OR (10:31)
--- NOTE | 2024-01-26 11:16 | DVHOP ---
DATE OF SURGERY: 01/26/2024 TECHNIQUE PERFORMED: * Emergency case. * Ultrasound of the right radial artery. * Insertion of 6-[place] arterial line from right radial artery. * Management of conscious sedation. * Left heart cath. * Left ventriculogram. * [place] selective left and right coronary artery angiography. COMPLICATIONS: None. ASSISTANTS: Assisted by our staff over here is Boaz Leon Bryan. COMPLICATIONS: None. INDICATIONS: The patient with acute myocardial infarction with troponin more than 2000. DESCRIPTION OF PROCEDURE: In a standard manner, risks and benefits of procedure were explained to the patient and understood actually very well and brought to record label intern. The patient's right radial area thoroughly cleaned with soap and Betadine and lidocaine was given. A 6-[place] arterial line was placed under ultrasound guidance. The patient was given 100 mcg of nitroglycerin, 2.5 mg of verapamil, and the patient was already on heparin drip. We put a TIG catheter 5-Gibraltarian, 4-0 was passed and left angio done. With the help of similar catheter, we also did a right coronary angiography. With the help of similar catheter, we also did left heart cath and left ventriculogram. Procedure completed. There were no complications. The patient did very well. IMPRESSION: * Normal left main. * The left anterior descending artery large artery. In its mid region, there is 50%+ narrowing. It seems that there is underlying dissolving thrombus and appears like the recent acute plaque rupture over there. * The diagonal normal. Septal perforators normal. * The circumflex and obtuse marginal artery are moderate size artery and were normal. * The right coronary artery is a very large dominant artery and is normal. * The ejection fraction of the left ventricle is 60%. CONCLUSION: * The study reveals normal left main. * The left anterior descending artery is a large artery. Mid region of the left anterior descending artery has 50% narrowing. There is underlying dissolving thrombus type of echogenic structure noted over there. However, DENISSE grade 3 flow has been noted. There was no spasm and there was no dissection. * The circumflex and obtuse marginal artery are moderate size artery, normal. * The right coronary artery is a very large dominant artery, normal. * Ejection fraction is normal. SUGGESTION: This patient will need aspirin one a day, Plavix, one a day, beta-tati, cholesterol reducing medicine. The patient currently does not need any angioplasty or stent. Discussion done with the patient. Discussion done with Dr. Tino Brandt and see me back in the office after few days or see any of the us administrative law judge. Yi Diaz MD MP/GENESIS/NELLA/ZANE TID: [id number] RECEIPT: [id number] MTDSteven
[2024-01-26 12:51] LABS: INR 1.12 (0.9-1.15); Partial Thromboplastin Time 29.9 SEC (24.5-34.5); Prothrombin Time 11.8 sec (9.3-11.8)
--- NOTE | 2024-01-26 13:23 | DVH ---
CTA Chest with intravenous contrast INDICATION: Rule out PE, very high right heart pressures COMPARISON: None TECHNIQUE: Multidetector spiral CTA of the chest was performed of the chest with intravenous contrast . PULMONARY ANGIOGRAPHY PROTOCOL was utilized using a bolus-tracking technique centered on the main p ulmonary artery. Axial, coronal and sagittal multiplanar and MIP reformats were performed. Radiation Dose : 1. Chest: CTDI volume is 26.5 mGy. Dose-length product is 993.9 mGy*cm The dose indicators for CT are the volume Computed Tomography (CT) Dose Index (CTDIvol) and the Dose Length Product (DLP), and are measured in units of mGy and mGy-cm, respectively. These indicators are not patient dose, but values generated from the CT scanner acquisition factors. The report includes radiation exposure data for exposures received during this examination. Findings: Pulmonary artery: No pulmonary embolism Lower neck: Normal thyroid. Lungs: No focal consolidation, pleural effusion or pneumothorax. Heart/Vascular Structures: Cardiomegaly. Coronary artery calcifications. Vascular calcifications of t he aorta. Moderate pericardial effusion. Lymph Nodes: No adenopathy Pleura: Small bilateral pleural effusions. Musculoskeletal: No acute osseous abnormality. Degenerative changes of the spine. Soft tissues: Normal. Upper abdomen: Limited portions of the upper abdomen are unremarkable. IMPRESSION: No pulmonary embolism. Moderate pericardial effusion. Small bilateral pleural effusions.
--- NOTE | 2024-01-26 13:38 | DVHCONRES ---
Date Seen: Jan 26, 2024 Resident Creating Document: JHAJJ,SARPUNEET RESIDENT Referring Physician MD Karly Reason for Consultation BERNADINE History of Present Illness Patient is a 68-year-old female with a past medical history of type 2 diabetes mellitus, hypertension, right lower extremity DVT came to the ED with a chief complaint of worsening shortness of breath for the last 2-3 weeks. Patient reported that with a past 5-6 months she was mostly on bed and was not able to get out of bed because of reported cellulitis of the lower limbs. Patient also reported losing 20-30 lb of weight. About a month ago patient reports being diagnosed of having right lower extremity DVT and was started on Eliquis 5 mg b.i.d. patient has a long history of hypertension for which she takes amlodipine 10 mg daily and benazepril 20 mg b.i.d. patient reported since the past 2-3 days she was having headache in the back of her head severe associated with blurry vision and shortness of breath on moving around in the bed and she was anxious. On arrival to the ED 12 lead ECG was done which showed T-wave flattening in the anterior leads, no ST wave changes. Patient's troponin levels were up trending 474, 2020, 2820. Patient had elevated creatinine 1.33, GFR 44, BUN 26, potassium 5.2 Chest x-ray showed cardiomegaly with mild pulmonary vascular congestion in the lower lobes. Past Medical History type 2 diabetes mellitus, hypertension, right lower extremity DVT Past Surgical History None reported Family History: Cancer G8 MOTHER Hypertension G8 MOTHER Social History Patient lives with family and denies smoking, alcohol, drug use Allergies: Coded Allergies: NO KNOWN ALLERGIES (Unverified , 11/14/10) Home Meds Active Scripts Sildenafil Citrate (SILDENAFIL CITRATE) 20 Mg Tab, 20 MG OR TID for 30 Days, #90 TAB 1 Refill Prov:DEJAN KRAMER DO 01/26/24 Furosemide (Lasix) 40 Mg Tab, 40 MG PO DAILY, #5 TAB 0 Refills Prov:DEJAN KRAMER DO 01/26/24 Carvedilol (COREG) 3.125 Mg Tab, 3.125 MG OR BID for 30 Days, #60 TAB 0 Refills Prov:DEJAN KRAMER DO 01/26/24 Aspirin (Aspirin Low Dose) 81 Mg Tab, 81 MG PO DAILY for 30 Days, #30 TAB 0 Refills Prov:DEJAN KRAMER DO 01/26/24 Atorvastatin Calcium (ATORVASTATIN CALCIUM) 40 Mg Tab, 1 TAB PO DAILY, #30 TAB 1 Refill Prov:DEJAN KRAMER S DO 01/26/24 Metformin Hydrochloride (Glucophage) 500 Mg Tb, 1000 MG PO IBID for 30 Days, TAB Prov:TAQUERIA POSADAS MD 11/29/13 Insulin Isophane & Reg (Human) (Humulin 70/30) 100 Units/1 Ml Units, 20 UNITS SC IBID for 30 Days, INJ Prov:TAQUERIA POSADAS MD 11/29/13 Reported Medications Benazepril Hcl (Benazepril Hcl) 20 Mg Tab, 1 TAB PO BID, #30 TAB 5 Refills 10/20/23 Discontinued Reported Medications Amlodipine Besylate (Amlodipine Besylate) 10 Mg Tab, 1 TAB PO DAILY, #30 TAB 5 Refills 10/20/23 Discontinued Scripts Doxycycline Hyclate (DOXYCYCLINE HYCLATE) 100 Mg Tab, 1 TAB PO BID for 14 Days, #28 TAB Prov:SHARON SOMMER MD 10/21/23 Amoxicillin & Pot Clavulanate (AUGMENTIN TABLET) 875 Mg Tb, 875 MG PO BID for 14 Days, #28 TAB Prov:SHARON SOMMER MD 10/21/23 Apixaban Base (ELIQUIS) 5 Mg Tab, 10 MG PO BID for 7 Days, #28 TAB 10MG BID X 7 DAYS THEN 5MG PO BID FOR AT LEAST 6 MONTHS FOR DVT/PE TREATMENT Prov:SHARON SOMMER MD 10/21/23 Apixaban Base (ELIQUIS) 5 Mg Tab, 5 MG PO BID for 30 Days, #60 TAB 2 Refills Prov:SHARON SOMMER MD 10/21/23 Current Medications Current Medications Medications (Trade) Dose Ordered Sig/Kate Route PRN Reason Start Time Stop Time Status Last Admin Heparin Sodium/ Dextrose 250 ml @ 10 mls/hr Q24H IV 01/25/24 16:45 01/26/24 01:32 DC 01/25/24 17:45 Acetaminophen (Tylenol Tablet) 325 mg Q4HP PRN PO MILD PAIN (1-3 PAIN SCALE) 01/25/24 16:45 Acetaminophen/ Hydrocodone Bitart ([place] 5/325MG Tab) 1 tab Q4HP PRN PO MODERATE PAIN (4-6 PAIN SCALE) 01/25/24 16:45 Morphine Sulfate 2 mg Q4HPRN PRN IV SEVERE PAIN (7-10 PAIN SCALE) 01/25/24 16:45 Nitroglycerin (Ntrostat Sublingual) 0.4 mg Q5MINP PRN SL FOR CHEST PAIN 01/25/24 16:45 Morphine Sulfate 2 mg Q30M PRN IV FOR CHEST PAIN 01/25/24 16:45 Diagnostic Test (Pha) (Accu-Chek Comfort Curve T) 1 strip ACHS 01/25/24 17:00 01/26/24 11:30 Insulin Human Regular (InsuLIN R) HS SC 01/25/24 22:00 01/25/24 22:27 Insulin Human Regular (InsuLIN R) AC SC 01/25/24 17:00 Dextrose 50 ml UD PRN IV Blood Sugar LESS THAN 60 01/25/24 17:00 Insulin Glargine (Lantus) 15 units HS SC 01/25/24 22:00 01/25/24 22:30 Sodium Chloride 1,000 ml @ 75 mls/hr [id number] IV 01/25/24 22:45 01/26/24 11:52 DC 01/25/24 23:14 Heparin Sodium/ Dextrose 250 ml @ 12 mls/hr [id number] IV 01/26/24 01:45 01/26/24 01:45 Adenosine (Adenosine) 4 mg ONCE STAT IV 01/26/24 07:01 01/26/24 08:02 DC 01/26/24 07:01 Review of Systems Patient seen and examined at the bedside. Patient is alert and oriented to time, place and person. Patient is status post coronary angiogram. Patient does not report of chest pain, shortness of breath, dizziness, palpitations, nausea, vomiting, abdominal pain. Patient's blood pressure is 129/86 mmHg, heart rate 107 regular, SpO2 97% on room air. Vital Signs Vital Signs Date Time Temp Pulse Resp B/P (MAP) Pulse Ox O2 Delivery O2 Flow Rate FiO2 01/26/24 10:45 Room Air* 0 21 01/26/24 10:25 107 14 129/86 (100) 96 01/26/24 05:00 97.6 97.6 Physical Exam Physical Examination Gen - no pallor, no icterus, no cyanosis, no clubbing, no LAD, 1+ bilateral pedal edema . Skin - Patients skin is warm and dry. HEENT - normocephalic, atraumatic, moist mucous membranes. Neck - full ROM, no LAD, JVD is seen up to the upper 3rd of the sternocleidomastoid. Pulmonary - B/L vesicular breath sounds with bibasilar crackles more on the left , no wheezing, no stridor. cardiovascular - normal S1,S2 heard. no murmurs heard. peripheral pulses normal radial 2+, pedal 2+. capillary refill normal <2 secs. GI - soft abdomen tenderness to palpation . no hepatospleenomegaly. Bowel sounds + Neurological - Patient is A/O X 3 . Bilateral upper extremity strength 5/5, bilateral lower extremity strength 5/5, no facial droop, normal speech, no tremo r, no sensory deficiets. Labs/Diagnostic Data Labs Test 01/26/24 12:00 01/26/24 11:05 01/26/24 05:00 01/25/24 18:28 Range/Units Prothrombin Time 11.8 9.3-11.8 sec Prothrombin Time INR 1.12 0.9-1.15 Activated Partial Thromboplast Time 29.9 24.5-34.5 SEC POC Glucose 92 70-106 mg/dl White Blood Count 7.6 # 4.4-10.8 10^3/uL Red Blood Count 3.45 L 4.0-5.20 10^6/uL Hemoglobin 11.3 L 12.2-16.2 g/dL Hematocrit 33.8 #L 36.0-46.0 % Mean Corpuscular Volume 98.0 80.0-100.0 fL Mean Corpuscular Hemoglobin 32.9 H 28.0-32.0 pg Mean Corpuscular Hemoglobin Concent 33.6 32.0-36.0 g/dL Red Cell Distribution Width 18.7 H 11.8-14.3 % Platelet Count 331 140-450 10^3/uL Mean Platelet Volume 7.7 6.9-10.8 fL Neutrophils (%) (Auto) 65.4 37.0-80.0 % Lymphocytes (%) (Auto) 23.3 10.0-50.0 % Monocytes (%) (Auto) 7.5 0.0-12.0 % Eosinophils (%) (Auto) 2.0 0.0-7.0 % Basophils (%) (Auto) 1.8 0.0-2.0 % Neutrophils # (Auto) 5.0 1.6-8.6 10 ^3/uL Lymphocytes # (Auto) 1.8 0.4-5.4 10 ^3/uL Monocytes # (Auto) 0.6 0-1.3 10 ^3/uL Eosinophils # (Auto) 0.2 0-0.8 10 ^3/uL Basophils # (Auto) 0.1 0-0.2 10 ^3/uL Nucleated Red Blood Cells 0.0 % Platelet Estimate Adequate Anisocytosis (manual) Slight Schistocytes Few Sodium Level 140 136-145 mmol/L Potassium Level 4.5 3.5-5.1 mmol/L Chloride Level 112 H 98-107 mmol/L Carbon Dioxide Level 20 20-31 mmol/L Anion Gap 8 5-15 Blood Urea Nitrogen 27 H 9-23 mg/dL Creatinine 1.12 H 0.550-1.02 mg/dL Glomerular Filtration Rate Calc 54 >90 mL/min BUN/Creatinine Ratio 24.1 H 10.0-20.0 Serum Glucose 113 H 74-106 mg/dL Calcium Level 9.3 8.7-10.4 mg/dL Total Bilirubin 0.6 0.2-1.0 mg/dL Aspartate Amino Transferase (AST) 39 13-40 U/L Alanine Aminotransferase (ALT) 20 7-40 U/L Alkaline Phosphatase 176 H 46-116 U/L Total Protein 5.9 5.7-8.2 g/dL Albumin 3.4 3.2-4.8 g/dL Troponin I High Sensitivity 2820 *H </=34 ng/L Test 01/25/24 14:04 Range/Units B-Type Natriuretic Peptide 530.39 0-100 pg/mL Plan/Recommendation Assessment and plan # Acute kidney injury likely prerenal hemodynamically mediated - serum creatinine 1.33-->1.12 - serum BUN 27-->24 - BUN:cr >20 - GFR - 54 - ECHO shows LVEF 70%, significant dilatation RV and RA, severe right ventricular hypokinesis , RVSP 118mmhg with severe right ventricular failure - recommended diuresis inpatient and discharge on diuretics - avoid nephrotoxic medications - recommend follow up in the outpatient for further workup for possible contrast induced nephropathy. # Hyperkalemia - resolved # NSTEMI # PAH Goals of care discussed with the patient for over 20 minutes. Full code. Plan discussed with Addendum Patient seen and examined, plan discussed with resident. Agree with above, we will follow closely Patient advised and recommended to follow-up in higher center for pulmonary hypertension and severe right ventricular failure-she verbalized understanding Plan discussed with: Patient GENARO MONTE RESIDENT Jan 26, 2024 13:38 TIKI MARTIN MD Jan 26, 2024 18:18
--- NOTE | 2024-01-26 13:43 | DVHPN2 ---
Progress Note - Dictate Date Seen: Jan 26, 2024 Medical Necessity Reason Pt with a Central, PICC or Fol: No Subjective Patient was seen and evaluated in follow up. Patient was found to be in SVT this morning and received 4mg of Adenosine. Patient converted back to NSR. Patient is s/p emergency left heart cath, [place] selective left and right coronary artery angiography. The study reveals normal left main.The left anterior descending artery is a large artery. Mid region of the left anterior descending artery has 50% narrowing. There is underlying dissolving thrombus type of echogenic structure noted over there. However, DENISSE grade 3 flow has been noted. There was no spasm and there was no dissection. The circumflex and obtuse marginal artery are moderate size artery, normal. The right coronary artery is a very large dominant artery, normal. Ejection fraction is normal. This patient will need aspirin one a day, Plavix, one a day, beta-tati, cholesterol reducing medicine. The patient currently does not need any angioplasty or stent. Discussion done with the patient. Discussion done with Dr. 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 Echocardiogram showed an EF of 70%. BUN 27, RAMP FLIGHT ATTENDANT 1.12. vital signs Vital Sign Date Time Temp Pulse Resp B/P (MAP) Pulse Ox O2 Delivery O2 Flow Rate FiO2 01/26/24 10:45 Room Air* 0 21 01/26/24 10:25 107 14 129/86 (100) 96 01/26/24 05:00 97.6 97.6 Total Intake and Output 01/25/24 01/25/24 01/26/24 15:00 23:00 07:00 Intake Total 1200 ml Balance 1200 ml medications Current Medications Medications Dose Ordered Sig/Kate Route Start Time Stop Time Status Last Admin Dose Admin Acetaminophen 325 mg Q4HP PRN PO 01/25/24 16:45 Acetaminophen/ Hydrocodone Bitart 1 tab Q4HP PRN PO 01/25/24 16:45 Morphine Sulfate 2 mg Q4HPRN PRN IV 01/25/24 16:45 Nitroglycerin 0.4 mg Q5MINP PRN SL 01/25/24 16:45 Morphine Sulfate 2 mg Q30M PRN IV 01/25/24 16:45 Diagnostic Test (Pha) 1 strip ACHS 01/25/24 17:00 01/26/24 11:30 1 STRIP Insulin Human Regular HS SC 01/25/24 22:00 01/25/24 22:27 2 UNITS Insulin Human Regular AC SC 01/25/24 17:00 Dextrose 50 ml UD PRN IV 01/25/24 17:00 Insulin Glargine 15 units HS SC 01/25/24 22:00 01/25/24 22:30 15 UNITS Heparin Sodium/ Dextrose 250 ml @ 12 mls/hr [id number] IV 01/26/24 01:45 01/26/24 01:45 12 MLS/HR objective GENERAL: Awake, alert, oriented. Obese. LUNGS: Clear. CARDIOVASCULAR: Heart sounds are good. ABDOMEN: Soft. laboratory and microbiology Laboratory Tests 01/26/24 05:00 Test 01/26/24 05:00 Range/Units Serum Glucose 113 H 74-106 mg/dL Problem List NSTEMI. Type 2 DM. BERNADINE. Morbid Obesity. Assessment/Plan Continued all current supportive medical care. Morphine and [place] for pain management. Heparin drip per protocol. IVFs. Additional plan as per the hospital course. Plan discussed with: Patient BENI HAYDEN MD Jan 26, 2024 13:17
[2024-01-26] MEDS ORDERED: FURO1TAB31 PO (13:51)
[2024-01-26] MEDS: SODIUM CHLORIDE 0.9% 1,000 ML IV ONE (14:00)
--- NOTE | 2024-01-26 14:24 | DVHDS2 ---
Discharge Summary Date of Admission Jan 25, 2024 at 16:41 Date of Discharge: Jan 26, 2024 Labs/Diagnostic Data: Laboratory Results Test 01/26/24 12:00 01/26/24 11:05 01/26/24 05:00 01/25/24 18:28 Prothrombin Time 11.8 sec (9.3-11.8) Prothrombin Time INR 1.12 (0.9-1.15) Activated Partial Thromboplast Time 29.9 SEC (24.5-34.5) POC Glucose 92 mg/dl (70-106) White Blood Count 7.6 10^3/uL (4.4-10.8) Red Blood Count 3.45 10^6/uL (4.0-5.20) Hemoglobin 11.3 g/dL (12.2-16.2) Hematocrit 33.8 % (36.0-46.0) Mean Corpuscular Volume 98.0 fL (80.0-100.0) Mean Corpuscular Hemoglobin 32.9 pg (28.0-32.0) Mean Corpuscular Hemoglobin Concent 33.6 g/dL (32.0-36.0) Red Cell Distribution Width 18.7 % (11.8-14.3) Platelet Count 331 10^3/uL (140-450) Mean Platelet Volume 7.7 fL (6.9-10.8) Neutrophils (%) (Auto) 65.4 % (37.0-80.0) Lymphocytes (%) (Auto) 23.3 % (10.0-50.0) Monocytes (%) (Auto) 7.5 % (0.0-12.0) Eosinophils (%) (Auto) 2.0 % (0.0-7.0) Basophils (%) (Auto) 1.8 % (0.0-2.0) Neutrophils # (Auto) 5.0 10 ^3/uL (1.6-8.6) Lymphocytes # (Auto) 1.8 10 ^3/uL (0.4-5.4) Monocytes # (Auto) 0.6 10 ^3/uL (0-1.3) Eosinophils # (Auto) 0.2 10 ^3/uL (0-0.8) Basophils # (Auto) 0.1 10 ^3/uL (0-0.2) Nucleated Red Blood Cells 0.0 % Platelet Estimate Adequate Anisocytosis (manual) Slight Schistocytes Few Sodium Level 140 mmol/L (136-145) Potassium Level 4.5 mmol/L (3.5-5.1) Chloride Level 112 mmol/L (98-107) Carbon Dioxide Level 20 mmol/L (20-31) Anion Gap 8 (5-15) Blood Urea Nitrogen 27 mg/dL (9-23) Creatinine 1.12 mg/dL (0.550-1.02) Glomerular Filtration Rate Calc 54 mL/min (>90) BUN/Creatinine Ratio 24.1 (10.0-20.0) Serum Glucose 113 mg/dL (74-106) Calcium Level 9.3 mg/dL (8.7-10.4) Total Bilirubin 0.6 mg/dL (0.2-1.0) Aspartate Amino Transferase (AST) 39 U/L (13-40) Alanine Aminotransferase (ALT) 20 U/L (7-40) Alkaline Phosphatase 176 U/L (46-116) Total Protein 5.9 g/dL (5.7-8.2) Albumin 3.4 g/dL (3.2-4.8) Troponin I High Sensitivity 2820 ng/L (</=34) Test 01/25/24 14:04 B-Type Natriuretic Peptide 530.39 pg/mL (0-100) Other Laboratory Tests 01/26/24 05:00 Brief Hx & Hospital Course: Patient is a 68F with PMH of T2DM on glargine and metformin, history of cellulitis, history of DVT who presents with worsening shortness of breath over the past month. Patient presented to the ER for this reason and was noted to have elevated troponin without chest pain. She denies history of smoking, cardiac history such as ND. At bedside, there is no tenderness to palpation to the chest. Patient notes she has not been fully compliant with her diabetes medications. Patient was noted to have rising troponins to 1999. She was seen by cardiology. Patient underwent left heart cath which revealed mild CAD not requiring drug- eluting stent placement. It was noted that patient had critically high pulmonary hypertension of 118 mmHg. Echocardiogram also revealed right ventricular failure. Patient was noted to go into SVT in the a.m. prior to her left heart cath. It resolved with adenosine. Patient was cleared by cardiology to go home and follow-up outpatient. CT chest angio was done to rule out PE which was negative. It showed a moderate pericardial effusion. This was discussed with cardiology who recommended that patient only take aspirin for his CAD. It was notable for small bilateral pleural effusions. It was also recommended patient be treated with Lasix and follow-up for further titration on outpatient side. Patient was also evaluated by nephrology for concerns for BERNADINE. Patient was hydrated with IV fluids prior and after her left heart cath. Patient was monitored for several hours after left heart cath. Patient was cleared for discharge by cardiology. Patient is to resume taking her diabetes medications as prescribed. She is advised to be consistent with her medications. Patient is to follow-up with cardiology. Patient is to be referred to pulmonary with specialty capabilities to manage pulmonary hypertension. Patient discharged in stable condition. Condition at Discharge: Fair Final Diagnosis/Problems List NSTEMI Secondary Diagnosis: Pulmonary Hypertension Heart Failure, Preserved Ejection Fraction, RV Failure BERNADINE Type 2 Diabetes Pericardial Effusion Discharge Disposition: Home with Health Services Discharge Instruct/Medications Diet: Cardiac 2g Na,low cholest Activity: No Restrictions, As Tolerated Follow Up/Referral: Follow up with cardiology. Medications: lasix, aspirin, coreg, atorvastatin Discharge Statement: "Patient was advised to return to the ER or call 911 if any headaches, dizziness, shortness of breath, chest pain, abdominal pain, bleeding, fevers, or worsening of medical condition. Patient was counseled about treatment plan, medications, possible side effects, patientverbalized understanding. All questions were answered to the best of my ability. This discharge took greater then 30 minutes in planning, reviewing documentation, counseling the patient, and discussing with other team members." ASSESSMENT ASSESSMENT Assessment NSTEMI DEJAN KRAMER DO Jan 26, 2024 14:24
[2024-01-26] MEDS ORDERED: SILD20TA12 OR (14:36)
--- NOTE | 2024-01-26 14:49 | DVH ---
CLINICAL INFORMATION: 68 years old, Female; PULMONARY EMBOLISM. TECHNIQUE: 3.46 mCi of Xenon-133 gas was used for the ventilation portion of the exam. Posterior doris tilation imaging was obtained. 4.85 mCi of technetium 99m MAA was used for the perfusion portion of t he exam. Imaging was obtained in multiple planes of projection. COMPARISON: Correlation made to same day CTA chest exam. Chest radiograph dated 01/25/2024. FINDINGS: Perfusion imaging shows no mismatched segmental or subsegmental segmental defects. Ventilation imaging shows no defects. There is normal washout. IMPRESSION: Normal exam. No evidence of pulmonary embolism.
[2024-01-26] MEDS: SILDENAFIL CITRATE 20 MG TAB PO ONE (17:49)
[2024-01-26] MEDS: FUROSEMIDE 40 MG/4 ML VIAL IV ONE (17:50)
--- NOTE | 2024-01-27 04:54 | DVHINCON2 ---
DATE OF CONSULTATION: 01/25/2024 HISTORY OF PRESENT ILLNESS: A 68-year-old lady seen urgently per request from Dr. Tino Brandt, short of breath is the main concern, history of hypertension, diabetes mellitus. The patient has shoulder pain, back pain, neck pain. Troponin turned out to be 474, now it is 2820, getting IV heparin drip. PAST MEDICAL HISTORY: Hypertension, diabetes. MEDICATIONS: The patient overall is getting Eliquis, metformin, insulin, amlodipine, benazepril. SOCIAL HISTORY: No smoke, no alcohol, no drugs. ALLERGIES: The patient's allergies are none. History of anemia, diabetes, hypertension, urinary tract infection, section and overall, the patient has an acute. PHYSICAL EXAMINATION: GENERAL: Awake, alert, and oriented. LUNGS: Clear. HEART: Sounds regular. VASCULAR: Normal. DIAGNOSES: Acute myocardial infarction non-ST, insulin-dependent diabetes, hypertension, need a cardiac catheterization. PLAN: On this patient with GFR is 44. Hyperkalemia borderline also noted. Indications, risks, benefits, alternative treatment of the cardiac, all have been explained. Yi Diaz MD MP/JOSEE/BANDAR TID: [id number] RECEIPT: [id number] MTDD
[2024-01-27] MEDS ORDERED: FUROSEMIDE 40 MG/4 ML VIAL IV SCH (10:00)
== END 2024-01-26 20:25 | disposition home health service (06) | DRG 280 ==
LOC: EDBD 12:54 → ER 12:55 → TELE 16:41 → TELE-EAST 16:45
PROVIDERS: ADMIT Student in an Organized Health Care Education/Training Program; ATTEND Student in an Organized Health Care Education/Training Program
PROC: 03HY32Z Insertion of Monitoring Device into Upper Artery, Percutaneous Approach (ICD-10-PCS; principal; 2024-01-26)
PROC: 4A023N7 Measurement of Cardiac Sampling and Pressure, Left Heart, Percutaneous Approach (ICD-10-PCS; 2024-01-26)
PROC: B211YZZ Fluoroscopy of Multiple Coronary Arteries using Other Contrast (ICD-10-PCS; 2024-01-26)
PROC: B215YZZ Fluoroscopy of Left Heart using Other Contrast (ICD-10-PCS; 2024-01-26)
DX: I21.4 Non-ST elevation (NSTEMI) myocardial infarction (principal); I50.33 Acute on chronic diastolic (congestive) heart failure; I31.39 Other pericardial effusion (noninflammatory); N17.9 Acute kidney failure, unspecified; I47.10 Supraventricular tachycardia, unspecified; E11.9 Type 2 diabetes mellitus without complications; E66.01 Morbid (severe) obesity due to excess calories; E87.5 Hyperkalemia; I27.29 Other secondary pulmonary hypertension; I25.10 Atherosclerotic heart disease of native coronary artery without angina pectoris; I11.0 Hypertensive heart disease with heart failure; F41.9 Anxiety disorder, unspecified; Z68.37 Body mass index [BMI] 37.0-37.9, adult; Z86.718 Personal history of other venous thrombosis and embolism; Z87.891 Personal history of nicotine dependence; Z79.4 Long term (current) use of insulin; Z82.49 Family history of ischemic heart disease and other diseases of the circulatory system
CPT/HCPCS: 36415; 71045; 71275; 78582; 80048; 80053; 82962; 83880; 84484; 85025; 85610; 85730; 93005; 93306; 93458; 96365; 96372; 96375; 99152; G0378; J0153; J1815; J1885; J2250; Q9967

== ENCOUNTER 2024-04-12 21:51 | Inpatient (IN) | payer OTHER ==
[~2024-04-12] VITALS: Ht 157.5 cm; Wt 97.9 kg
[~2024-04-12 21:51] MED LIST changes: -AMLO1TAB23 PO; -APIX5TAB PO; +ASPI-325 PO; +ATOR40TA52 PO; -AUG875T PO; +CARV-214 OR; -DOXY-286 PO; +FURO1TAB31 PO; +SILD20TA12 OR
--- NOTE | 2024-04-12 22:11 | ED.PDOC ---
History of Present Illness HPI Comments 68 year old female brought in by EMS presents to the ED with a chief complaint of hyperglycemia onset 1 week. Per EMS, patient was placed on 2L O2 and sat is 98%, HR 100, took patient's blood glucose and monitor read high. Patient states her dog kicked medication under the bed and she was not able to reach m edication, began experiencing shortness of breath and called EMS. She also noticed her bilateral lower extremities are red and swollen. PMHx anemia, HTN, DM. Denies chest pain, dizziness, headache, blurry vision, abdominal pain, nausea, vomiting, diarrhea. No other symptoms or modifying factors present at this time. Chief Complaint: Hyperglycemia Time Seen by MD: 22:01 Primary Care Provider: SELMA Reviewed Notes: Medications, Allergies Allergies: Coded Allergies: NO KNOWN ALLERGIES (Unverified , 11/14/10) Home Meds Active Scripts Sildenafil Citrate (SILDENAFIL CITRATE) 20 Mg Tab, 20 MG OR TID for 30 Days, #90 TAB 1 Refill Prov:DEJAN KRAMER S DO 01/26/24 Furosemide (Lasix) 40 Mg Tab, 40 MG PO DAILY, #5 TAB 0 Refills Prov:TAKELLY RAMIREZI S DO 01/26/24 Carvedilol (COREG) 3.125 Mg Tab, 3.125 MG OR BID for 30 Days, #60 TAB 0 Refills Prov:DEJAN KRAMER S DO 01/26/24 Aspirin (Aspirin Low Dose) 81 Mg Tab, 81 MG PO DAILY for 30 Days, #30 TAB 0 Refills Prov:TADEJAN RAMIREZ S DO 01/26/24 Atorvastatin Calcium (ATORVASTATIN CALCIUM) 40 Mg Tab, 1 TAB PO DAILY, #30 TAB 1 Refill Prov:DEJAN KRAMER S DO 01/26/24 Metformin Hydrochloride (Glucophage) 500 Mg Tb, 1000 MG PO IBID for 30 Days, TAB Prov:TAQUERIA POSADAS MD 11/29/13 Insulin Isophane & Reg (Human) (Humulin 70/30) 100 Units/1 Ml Units, 20 UNITS SC IBID for 30 Days, INJ Prov:TAQUERIA POSADAS MD 11/29/13 Reported Medications Benazepril Hcl (Benazepril Hcl) 20 Mg Tab, 1 TAB PO BID, #30 TAB 5 Refills 10/20/23 Information Source: Patient, Emergency Med Personnel Mode of Arrival: EMS Severity: Moderate Timing: Weeks Duration: Since onset Past Medical History PAST MEDICAL HISTORY: Anemia, DM, HTN, UTI'S Surgical History: 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 Pertinent HAZARDOUS MATERIAL TECHNICIAN History, Uterine Fibroids Family History Family History: No family hx of HTN Social History Smoker: Non-Smoker Alcohol: Denies ETOH Use Drugs: Denies Drug Use Lives In: Home Constitutional: denies: chills, diaphoresis, fatigue, fever, malaise, sweats, weakness, others EENTM: denies: blurred vision, double vision, ear bleeding, ear discharge, ear drainage, ear pain, ear ringing, eye pain, eye redness, hearing loss, mouth pain, mouth swelling, nasal discharge, nose bleeding, nose congestion, nose pain, photophobia, tearing, throat pain, throat swelling, voice changes, others Respiratory: reports: shortness of breath; denies: cough, hemoptysis, orthopnea, SOB at rest, SOB with excertion, stridor, wheezing, others Cardiovascular: denies: chest pain, dizzy spells, diaphoresis, Dyspnea on exertion, edema, irregular heart beat, left arm pain, lightheadedness, palpitations, PND, syncope, others Gastrointestinal: denies: abdomen distended, abdominal pain, blood streaked bowels, constipated, diarrhea, dysphagia, difficulty swallowing, hematemesis, melena, nausea, poor appetite, poor fluid intake, rectal bleeding, rectal pain, vomiting, others Genitourinary: denies: abnormal vagina bleeding, burning, dyspareunia, dysuria, flank pain, frequency, hematuria, incontinence, pain, , vagina discharge, urgency, others Neurological: denies: dizziness, fainting, headache, left sided numbness, left sided weakness, numbness, paresthesia, pre-existing deficit, right sided numbness, right sided weakness, seizure, speech problems, tingling, tremors, weakness, others Musculoskeletal: reports: others (Bilateral lower extremeites swelling ); denies: back pain, gout, joint pain, joint swelling, muscle pain, muscle stiffness, neck pain Integumetry: denies: bruises, change in color, change in hair/nails, dryness, laceration, lesions, lumps, rash, wounds, others Allergic/Immunocompromised: denies: Difficulty Healing, Frequent Infections, Hives, Itching, others Hematologic/Lymphatic: denies: anemia, blood clots, easy bleeding, easy bruising, swollen glands, others Endocrine: denies: excessive hunger, excessive sweating, excessive thirst, excessive urination, flushing, intolerance to cold, intolerance to heat, unexplained weight gain, unexplained weight loss, others Psychiatric: denies: anxiety, bipolar disorder, depression, hopeless, panic disorder, schizophrenia, sleepless, suicidal, others All Other Systems: Reviewed and Negative Physical Exam General Appearance: No Apparent Distress, Normal HEENT: Normal ENT Inspection, Pharynx Normal, TMs Normal Neck: Full Range of Motion, Non-Tender, Normal, Normal Inspection Respiratory: Chest Non-Tender, Lungs Clear, No Accessory Muscle Use, No Respiratory Distress, Normal Breath Sounds Cardiovascular: No Edema, No JVD, No Murmur, No Gallop, Normal Peripheral Pulses, Regular Rate/Rhythm Breast Exam: Deferred Gastrointestinal: No Organomegaly, Non Tender, No Pulsatile Mass, Normal Bowel Sounds, Soft Genitalia: Deferred Pelvic: Deferred Rectal: Deferred Extremities: Normal capillary refill, Normal inspection, Normal range of motion, Pedal edema (2+), Other (2+ pitting edema of bilateral lower extremities ) Musculoskeletal : Apperance: Normal 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 Was a procedure done?: No Differential Dx Considerations may include: Electrolyte abnormalities, DKA, infectious etiology, symptomatic anemia X-Ray, Labs, Meds, VS Vital Signs Date Time Temp Pulse Resp B/P (MAP) Pulse Ox O2 Delivery O2 Flow Rate FiO2 04/12/24 22:02 97.7 99 20 159/84 (109) 99 04/12/24 21:56 101 Lab Test 04/12/24 23:23 04/12/24 22:14 Range/Units Troponin I High Sensitivity Pending 25 </=34 ng/L White Blood Count 12.5 H 4.4-10.8 10^3/uL Red Blood Count 2.33 L 4.0-5.20 10^6/uL Hemoglobin 6.1 *L 12.2-16.2 g/dL Hematocrit 19.8 L 36.0-46.0 % Mean Corpuscular Volume 85.2 80.0-100.0 fL Mean Corpuscular Hemoglobin 26.0 L 28.0-32.0 pg Mean Corpuscular Hemoglobin Concent 30.5 L 32.0-36.0 g/dL Red Cell Distribution Width 19.0 H 11.8-14.3 % Platelet Count 461 H 140-450 10^3/uL Mean Platelet Volume 8.1 6.9-10.8 fL Neutrophils (%) (Auto) 81.2 H 37.0-80.0 % Lymphocytes (%) (Auto) 7.1 L 10.0-50.0 % Monocytes (%) (Auto) 9.3 0.0-12.0 % Eosinophils (%) (Auto) 1.0 0.0-7.0 % Basophils (%) (Auto) 1.4 0.0-2.0 % Neutrophils # (Auto) 10.1 H 1.6-8.6 10 ^3/uL Lymphocytes # (Auto) 0.9 0.4-5.4 10 ^3/uL Monocytes # (Auto) 1.2 0-1.3 10 ^3/uL Eosinophils # (Auto) 0.1 0-0.8 10 ^3/uL Basophils # (Auto) 0.2 0-0.2 10 ^3/uL Nucleated Red Blood Cells 0.8 % Sodium Level 133 L 136-145 mmol/L Potassium Level 5.2 H 3.5-5.1 mmol/L Chloride Level 105 98-107 mmol/L Carbon Dioxide Level 19 L 20-31 mmol/L Anion Gap 9 5-15 Blood Urea Nitrogen 37 H 9-23 mg/dL Creatinine 1.19 H 0.550-1.02 mg/dL Glomerular Filtration Rate Calc 50 >90 mL/min BUN/Creatinine Ratio 31.1 H 10.0-20.0 Serum Glucose 563 *H 74-106 mg/dL Calcium Level 9.6 8.7-10.4 mg/dL B-Type Natriuretic Peptide Pending [facility] [id number] [facility] [address] Ph: [phone] DIAGNOSTIC IMAGING Diagnostic Imaging Report : [id number] Signed PATIENT: BEAU CERVANTESKEYANNACCT: [id number] UNIT: [id number] : 1955 LOC: ER ROOM / BED: / AGE / SEX: 68 / F ADM STATUS: REG ER SERVICE 03 ORDERING PHYSICIAN: BECKI BALES MD PROCEDURE(s): CXRP - CHEST PORTABLE REASON: weakness ORDER NUMBER(s): [id number], ACCESSION NUMBER(s): [id number] CHEST RADIOGRAPH Indication: weakness Technique: Single frontal view of the chest was obtained Comparison: XY CHEST XRAY 1 VIEW on DOS: 01/25/24, XY CHEST PORTABLE on DOS: 10/19/23 FINDINGS: Lines and Tubes: None Lungs: No focal consolidation. Pleura: No effusion. No pneumothorax. Cardiomediastinal contours: Unremarkable Bones: No acute osseous abnormality. IMPRESSION: 1. No acute cardiopulmonary disease. 2. No significant change from 01/25/2024 ATED BY: KEM COKER Jr., DO DICTATED DATE/TIME: 04/12/242238 SIGNED BY: KEM COKER Jr., SIGNED DATE/TIME: 04/12/242238 CC: Time of 1ST Reevaluation: 22:31 Reevaluation 1ST: Unchanged Patient Education/Counseling: Diagnosis, Treatment, Prognosis Family Education/Counseling: No Family Present Additional Information The following tests were ordered, and results were reviewed by me: EKG, BNP, BMP, CBC, TROP -x3, XY CHEST Additional Information was gathered from interviewing the following independent historians: EMS I reviewed and agreed with the following test results read by other providers: XY CHEST I discussed treatment and results with medical personnel and patient Departure 1 Departure Time of Disposition: 23:37 (Patient with worsening symptomatic anemia and hyperglycemia. We will treat patient with blood I insulin admit patient for further workup) Impression: Primary Impression: Symptomatic anemia Additional Impressions: Shortness of breath Uncontrolled diabetes mellitus Qualified Codes: E11.65 - Type 2 diabetes mellitus with hyperglycemia Disposition: 09 ADMITTED INPATIENT Admit to: [facility] Condition: Serious Critical Care Note Critical Care Time?: No Stability Stability form required: No I personally scribed for BECKI BALES MD ([email or web address]) on 04/12/24 at 22:11. Electronically submitted by Gloria [email or web address]). I personally scribed for BECKI BALES MD ([email or web address]) on 04/12/24 at 22:12. Electronically submitted by Gloria Jackson ([email or web address]). I personally scribed for BECKI BALES MD ([email or web address]) on 04/12/24 at 22:57. Electronically submitted by Gloria Jackson ([email or web address]). BECKI BALES MD Apr 12, 2024 22:11
[2024-04-12 22:33] LABS: Eosinophils # (auto) 0.1 10 ^3/uL (0-0.8)
[2024-04-12 22:34] LABS: Basophils # (auto) 0.2 10 ^3/uL (0-0.2); Basophils % (auto) 1.4 % (0.0-2.0); Hematocrit 19.8 % (36.0-46.0); Lymphocytes # (auto) 0.9 10 ^3/uL (0.4-5.4); Lymphocytes % (auto) 7.1 % (10.0-50.0); Mean Corpuscular Hgb Conc. 30.5 g/dL (32.0-36.0); Mean Corpuscular Volume 85.2 fL (80.0-100.0); Monocytes # (auto) 1.2 10 ^3/uL (0-1.3); Monocytes % (auto) 9.3 % (0.0-12.0); Neutrophils # (auto) 10.1 10 ^3/uL (1.6-8.6); Neutrophils % (auto) 81.2 % (37.0-80.0); Nucleated Red Blood Cells % 0.8 %; Platelet Count (auto) 461 10^3/uL (140-450); Red Blood Cells 2.33 10^6/uL (4.0-5.20); White Blood Cell 12.5 10^3/uL (4.4-10.8)
--- NOTE | 2024-04-12 22:42 | DVH ---
CHEST RADIOGRAPH Indication: weakness Technique: Single frontal view of the chest was obtained Comparison: XY CHEST XRAY 1 VIEW on DOS: 01/25/24, XY CHEST PORTABLE on DOS: 10/19/23 FINDINGS: Lines and Tubes: None Lungs: No focal consolidation. Pleura: No effusion. No pneumothorax. Cardiomediastinal contours: Unremarkable Bones: No acute osseous abnormality. IMPRESSION: 1. No acute cardiopulmonary disease. 2. No significant change from 01/25/2024
[2024-04-12 22:43] LABS: Chloride 105 mmol/L (98-107)
[2024-04-12 22:44] LABS: Anion Gap 9 (5-15); Calcium 9.6 mg/dL (8.7-10.4)
[2024-04-12 22:49] LABS: BUN/Creatinine Ratio 31.1 (10.0-20.0)
[2024-04-12 23:00] VITALS: PULSE 105; RESP 23; O2SAT 99
[2024-04-12 23:13] LABS: Hemoglobin 6.1 g/dL (12.2-16.2)
[2024-04-12 23:20] LABS: Blood Urea Nitrogen 37 mg/dL (9-23); Carbon Dioxide 19 mmol/L (20-31); Glucose 563 mg/dL (74-106); Potassium 5.2 mmol/L (3.5-5.1); Sodium 133 mmol/L (136-145)
[2024-04-12] MEDS: InsuLIN REG 1unit/0.01ml Soln (100units/ml) IV ONE (23:57)
[2024-04-13] MEDS: FUROSEMIDE 40 MG/4 ML VIAL IV ONE (00:18)
[2024-04-13] MEDS: IOHEXOL 300 MG/ML 100ML BOTTLE IJ ONE (00:44)
[2024-04-13] MEDS: MORPHINE SULFATE 4 MG/ML SYR/VIAL IV ONE (01:24)
[2024-04-13] MEDS: ONDANSETRON HCL 4 MG/2 ML VIAL IV ONE (01:25)
--- NOTE | 2024-04-13 01:41 | DVH ---
CLINICAL HISTORY: abdominal pain, brbpr TECHNIQUE: CT of the abdomen and pelvis was performed with intravenous contrast. 100 mL Omnipaque 300 This exam was performed according to our departmental dose optimization program. Up-to-date CT equip ment and radiation dose reduction techniques are utilized as appropriate. CTDIVol: 26.54 mGy DLP: 1618.84 mGy-cm WID: COMPARISON: None FINDINGS: Lower Thorax: Mild cardiomegaly and small pericardial effusion. Small to moderate right and small lef t pleural effusions. Liver and Biliary system: No discrete hepatic lesion. Major portal veins are patent. Gallbladder is normal caliber and contains cholelithiasis. No biliary ductal dilatation. Spleen: Unremarkable. Adrenal Glands and Kidneys: Tiny nonobstructing right lower pole renal calculus. Normal adrenal gland s. No hydronephrosis Pancreas and Retroperitoneum: Mildly atrophic pancreas. Mildly prominent retroperitoneal lymph nodes. Aorta and Major Vessels: Aortoiliac vessels are patent and normal caliber with trace calcified athero sclerotic plaque. Bowel, Mesentery and Peritoneal space: The small and large bowel loops are normal caliber. Mild ascit es mild mesenteric venous congestion. No pneumoperitoneum or fluid collection Pelvis: Globular enlargement of the uterus. Urinary bladder is unremarkable. There is no pelvic lymp hadenopathy. Abdominal wall and Osseous Structures: Multilevel lower thoracic and lumbar spondylosis. Marked body wall edema. No destructive osseous lesion. IMPRESSION: 1. CHF and/or volume overload, with mild cardiomegaly, small pericardial effusion, small to moderate right and small left pleural effusions, marked body wall edema, mild ascites and mesenteric venous co ngestion. 2. Cholelithiasis. 3. Tiny nonobstructing right lower pole renal calculus. 4. Globular enlargement of the uterus which could be due to adenomyosis or fibroids.
[2024-04-13] MEDS ORDERED: NITROGLYCERIN 0.4 MG SL TAB SL PRN (02:00)
[2024-04-13 02:01] LABS: Lactic Acid w/Reflex 4.5 mmol/L (0.4-2.0)
[2024-04-13 02:15] VITALS: BP 181/72; PULSE 103; RESP 20; TEMP 98.3
[2024-04-13] MEDS ORDERED: VANCOMYCIN PER PHARMACY 0 MG IV SCH (02:15)
--- NOTE | 2024-04-13 02:23 | DVHHP2 ---
Admitting Diagnosis: Acute anemia Uncontrolled DM History of Present Illness HPI 68 y.o. female with HTN, DM and obesity arrived to the ED c/o high blood glucose level, SOB, leg swelling. In the ED her Hg was 6.1 and her glucose over 500. CT showed small pericardial and small pleural effusions. ER MD started PRBC transfusion. Home Meds Active Scripts Sildenafil Citrate (SILDENAFIL CITRATE) 20 Mg Tab, 20 MG OR TID for 30 Days, #90 TAB 1 Refill Prov:DEJAN KRAMER S DO 01/26/24 Furosemide (Lasix) 40 Mg Tab, 40 MG PO DAILY, #5 TAB 0 Refills Prov:SLOANEKELLY RAMIREZI S DO 01/26/24 Carvedilol (COREG) 3.125 Mg Tab, 3.125 MG OR BID for 30 Days, #60 TAB 0 Refills Prov:DEJAN KRAMER S DO 01/26/24 Aspirin (Aspirin Low Dose) 81 Mg Tab, 81 MG PO DAILY for 30 Days, #30 TAB 0 Refills Prov:DEJAN KRAMER S DO 01/26/24 Atorvastatin Calcium (ATORVASTATIN CALCIUM) 40 Mg Tab, 1 TAB PO DAILY, #30 TAB 1 Refill Prov:DEJAN KRAMER S DO 01/26/24 Metformin Hydrochloride (Glucophage) 500 Mg Tb, 1000 MG PO IBID for 30 Days, TAB Prov:TAQUERIA POSADAS MD 11/29/13 Insulin Isophane & Reg (Human) (Humulin 70/30) 100 Units/1 Ml Units, 20 UNITS SC IBID for 30 Days, INJ Prov:TAQUERIA POSADAS MD 11/29/13 Reported Medications Benazepril Hcl (Benazepril Hcl) 20 Mg Tab, 1 TAB PO BID, #30 TAB 5 Refills 10/20/23 Past Medical History Cardiac: HTN, Hyperlipidemia Endocrine: NIDDM Patient Family History: Cancer G8 MOTHER Hypertension G8 MOTHER Review of Systems Constitutional: Weakness Pulmonary/Respiratory: Dyspnea H&P Exam Vital Signs Vital Signs Date Time Temp Pulse Resp B/P (MAP) Pulse Ox O2 Delivery O2 Flow Rate FiO2 04/13/24 01:24 107 21 161/82 04/13/24 01:00 100 04/12/24 23:00 Nasal Cannula* 2 28 04/12/24 23:00 97.5 97.5 General Appeara: Obese Head Exam: Normal inspection Neck Exam: Normal inspection Eye Exam: bilateral eye PERRL, bilateral eye EOMI Pulmonary/Respiratory: Crackles Cardiovascular/Chest: Tachycardia Abdominal Exam: No tenderness Legs: bilateral leg ecchymosis, bilateral leg swelling Ankle Exam: bilateral ankle Swelling Foot: bilateral foot swelling Neuro/Mental St: Alert, Oriented Wounds lower leg Labs/Xrays Labs Test 04/13/24 01:47 04/13/24 01:15 04/12/24 23:23 04/12/24 22:14 Range/Units POC Glucose 397 H 70-106 mg/dl Lactic Acid Level 4.5 *H 0.4-2.0 mmol/L Troponin I High Sensitivity 27 </=34 ng/L White Blood Count 12.5 H 4.4-10.8 10^3/uL Red Blood Count 2.33 L 4.0-5.20 10^6/uL Hemoglobin 6.1 *L 12.2-16.2 g/dL Hematocrit 19.8 L 36.0-46.0 % Mean Corpuscular Volume 85.2 80.0-100.0 fL Mean Corpuscular Hemoglobin 26.0 L 28.0-32.0 pg Mean Corpuscular Hemoglobin Concent 30.5 L 32.0-36.0 g/dL Red Cell Distribution Width 19.0 H 11.8-14.3 % Platelet Count 461 H 140-450 10^3/uL Mean Platelet Volume 8.1 6.9-10.8 fL Neutrophils (%) (Auto) 81.2 H 37.0-80.0 % Lymphocytes (%) (Auto) 7.1 L 10.0-50.0 % Monocytes (%) (Auto) 9.3 0.0-12.0 % Eosinophils (%) (Auto) 1.0 0.0-7.0 % Basophils (%) (Auto) 1.4 0.0-2.0 % Neutrophils # (Auto) 10.1 H 1.6-8.6 10 ^3/uL Lymphocytes # (Auto) 0.9 0.4-5.4 10 ^3/uL Monocytes # (Auto) 1.2 0-1.3 10 ^3/uL Eosinophils # (Auto) 0.1 0-0.8 10 ^3/uL Basophils # (Auto) 0.2 0-0.2 10 ^3/uL Nucleated Red Blood Cells 0.8 % Sodium Level 133 L 136-145 mmol/L Potassium Level 5.2 H 3.5-5.1 mmol/L Chloride Level 105 98-107 mmol/L Carbon Dioxide Level 19 L 20-31 mmol/L Anion Gap 9 5-15 Blood Urea Nitrogen 37 H 9-23 mg/dL Creatinine 1.19 H 0.550-1.02 mg/dL Glomerular Filtration Rate Calc 50 >90 mL/min BUN/Creatinine Ratio 31.1 H 10.0-20.0 Serum Glucose 563 *H 74-106 mg/dL Calcium Level 9.6 8.7-10.4 mg/dL B-Type Natriuretic Peptide 918.45 0-100 pg/mL Assessment/Plan Problem List: (1) Symptomatic anemia (2) Uncontrolled diabetes mellitus (3) Peripheral edema (4) Cellulitis, leg Plan PRBC, Lasix, Abx, wound care Plan discussed with: Patient ANN WAN MD Apr 13, 2024 02:23
[2024-04-13 02:40] VITALS: BP 161/59; PULSE 98; RESP 23; TEMP 98
[2024-04-13] MEDS: VANCOMYCIN 1GM/250ML KIT 200 ML IV ONE (04:07)
[2024-04-13] MEDS ORDERED: DEXTROSE (50%) 50ML SYRG IV PRN (05:00)
[2024-04-13 05:30] VITALS: BP 167/78; PULSE 97; RESP 20; TEMP 98.2
[2024-04-13 05:45] VITALS: BP 179/102; PULSE 98; RESP 16; TEMP 98.2
[2024-04-13] MEDS: PIPERACILLIN-TAZOB 3.375GM 100 ML IV SCH (06:00)
[2024-04-13] MEDS: INSULIN LANTUS (GLARGINE) 1 /0.01ml (100units/ml) SC ONE (06:49)
[2024-04-13] MEDS: InsuLIN REG 1unit/0.01ml Soln (100units/ml) SC SCH ×2 (06:50→22:00)
[2024-04-13] MEDS: ACCU-CHEK COMFORT CURVE STRIP VI SCH (06:56)
[2024-04-13] MEDS: MORPHINE SULFATE INJ 2 MG/ml SYRG IV PRN (07:37)
[2024-04-13] MEDS: FUROSEMIDE 40 MG/4 ML VIAL IV SCH (07:38)
[2024-04-13 08:10] LABS: Basophils # (auto) 0.1 10 ^3/uL (0-0.2); Basophils % (auto) 0.8 % (0.0-2.0); Eosinophils # (auto) 0.2 10 ^3/uL (0-0.8); Hemoglobin 7.6 g/dL (12.2-16.2); Neutrophils # (auto) 10.7 10 ^3/uL (1.6-8.6)
[2024-04-13 08:12] LABS: Eosinophils % (auto) 1.2 % (0.0-7.0); Hematocrit 24.4 % (36.0-46.0); Lymphocytes % (auto) 7.5 % (10.0-50.0); Mean Corpuscular Hemoglobin 26.5 pg (28.0-32.0); Mean Corpuscular Hgb Conc. 31.2 g/dL (32.0-36.0); Mean Corpuscular Volume 84.9 fL (80.0-100.0); Monocytes # (auto) 1.3 10 ^3/uL (0-1.3); Monocytes % (auto) 9.6 % (0.0-12.0); Neutrophils % (auto) 80.9 % (37.0-80.0); Nucleated Red Blood Cells % 0.7 %; Platelet Count (auto) 414 10^3/uL (140-450); Red Blood Cells 2.88 10^6/uL (4.0-5.20); Red Cell Distribution Width 18.2 % (11.8-14.3); White Blood Cell 13.2 10^3/uL (4.4-10.8)
[2024-04-13 08:43] LABS: Alanine Aminotransferase 26 U/L (7-40); Albumin 4.1 g/dL (3.2-4.8); Anion Gap 8 (5-15); Aspartate Aminotransferase 35 U/L (13-40); BUN/Creatinine Ratio 35.2 (10.0-20.0); Bilirubin, Total 0.9 mg/dL (0.2-1.0); Calcium 9.1 mg/dL (8.7-10.4); Carbon Dioxide 24 mmol/L (20-31); Chloride 102 mmol/L (98-107); Total Protein 6.7 g/dL (5.7-8.2)
[2024-04-13 08:45] LABS: Alkaline Phosphatase 267 U/L (46-116); Blood Urea Nitrogen 37 mg/dL (9-23); Glucose 395 mg/dL (74-106); Potassium 5.3 mmol/L (3.5-5.1); Sodium 134 mmol/L (136-145)
--- NOTE | 2024-04-13 10:41 | ECG ---
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
--- NOTE | 2024-04-13 10:58 | DVHSR ---
APPROVED REPORT EXAM: Two-dimensional and M-mode echocardiogram with Doppler and color Doppler. Blood Pressure: 170/80 mmHg INDICATION Pericardial Effusion RISK FACTORS Height: 5'2", Weight: 240 DIMENSIONS LVDd3.5 (3.8-5.7cm)LA (2D)3.4 (1.9-4.0cm)Aortic Root3.0 (2.0-3.7cm) LVDs2.0 (2.5-4.0cm)LA (MM) (1.9-4.0cm)Aortic Cusp Exc1.6 (1.5-2.0cm) EF (%) 73.0 (55-70%)Rt. Atrium5.4 (1.9-4.0cm)Asc. Aorta3.4 cm IVSd1.6 (0.7-1.1cm)RV (D)5.5 (1.8-2.4cm) PWd1.2 (0.7-1.1cm) Mitral Valve MitralMitral Stenosis E wave0.60m/sMV Mean GR.mmHg A wave1.08m/sMV Peak GR.mmHg E/A ratio0.62D MVAcm2 DECEL [id number] 1/2 Timems Aortic Valve Aortic ValveAortic Stenosis V11.10m/Katie Mean GR.5mmHg V21.52m/Katie Peak GR.9mmHg LVOT Diameter1.9 (1.8-2.4cm)Doppler AVA2.05cm2 Pulmonic Valve V20.89m/s Tricuspid Valve TR Velocity4.50m/s [id number] LEFT VENTRICLE The left ventricle is of normal size. Wall thickness is moderately to severely increased and most pr ominent in the septum. Systolic function is normal with a does not estimated ejection fraction of 65 %. There is intraventricular septal flattening during diastole suggestive of right-sided volume over load. There is grade 2 diastolic dysfunction. RIGHT VENTRICLE The right ventricle is severely dilated in size. Right ventricular systolic function is severely dec reased. ATRIA The left atrium was of normal size. Right atrium is severely dilated in size. There is intra-atrial septal bowing to the left side. MITRAL VALVE Normal in structure and function. No significant mitral regurgitation. PULMONIC VALVE Likely normal. TRICUSPID VALVE There is [id number] central tricuspid regurgitation. PA systolic pressure is estimated at 95 -105 mm Hg. AORTIC VALVE Trileaflet in morphology. Leaflets are sclerotic. No significant stenosis or regurgitation. GREAT VESSELS Not well visualized. PERICARDIAL EFFUSION There is moderate circumferential pericardial effusion. IVC is dilated in size and does not collapse normally with inspiration. Conclusion Severely dilated right ventricular size with severely decreased systolic function. Severely dilated right atrial size. Intraventricular septal flattening during diastole suggestive of right-sided volume overload. PA systolic pressure is estimated at 95-105 mm Hg. Likely severe tricuspid regurgitation. Normal left ventricular size and systolic function. [id number] left ventricular hypertrophy most prominent in the septum. Moderate circumferential pericardial effusion. Overall, there is not significant change compared to an echo done in January of 2024.
[2024-04-13 11:52] LABS: Urine Bacteria None Seen /hpf (None Seen)
[2024-04-13 12:24] LABS: Urine Blood Negative /uL (Negative); Urine Clarity Clear (Clear); Urine Color Light-Yellow (Yellow); Urine Protein, UAD Negative (Negative); Urine Specific Gravity 1.019 (1.001-1.035); Urine Squamous Epithelial Cell FEW /hpf (<5); Urine Urobilinogen Normal (Negative); Urine WBC 1 /HPF (0-5)
[2024-04-13 14:37] LABS: Basophils # (auto) 0.1 10 ^3/uL (0-0.2); Basophils % (auto) 0.8 % (0.0-2.0); Eosinophils # (auto) 0.6 10 ^3/uL (0-0.8); Eosinophils % (auto) 3.3 % (0.0-7.0); Hematocrit 28.7 % (36.0-46.0); Hemoglobin 9.3 g/dL (12.2-16.2); Lymphocytes # (auto) 1.2 10 ^3/uL (0.4-5.4); Lymphocytes % (auto) 7.3 % (10.0-50.0); Mean Corpuscular Hemoglobin 27.2 pg (28.0-32.0); Mean Corpuscular Hgb Conc. 32.3 g/dL (32.0-36.0); Mean Corpuscular Volume 84.1 fL (80.0-100.0); Monocytes # (auto) 1.7 10 ^3/uL (0-1.3); Neutrophils # (auto) 13.1 10 ^3/uL (1.6-8.6); Neutrophils % (auto) 78.6 % (37.0-80.0); Nucleated Red Blood Cells % 1.1 %; Platelet Count (auto) 437 10^3/uL (140-450); Red Blood Cells 3.42 10^6/uL (4.0-5.20); White Blood Cell 16.6 10^3/uL (4.4-10.8)
[2024-04-13 23:01] VITALS: BP 159/82; PULSE 89; RESP 20; TEMP 97.9; O2SAT 100
[2024-04-13] MEDS ORDERED: GABA-339 PO (23:01)
[2024-04-14] VITALS (8 sets, daily range): BP systolic 112–148; BP diastolic 41–83; PULSE 66–100; RESP 16–18; TEMP 97.5–98.4; O2SAT 90–97
[2024-04-14] MEDS: ACETAMINOPHEN 325 MG TAB PO PRN (00:21)
[2024-04-14] MEDS: VANCOMYCIN 1GM/250ML KIT 250 ML IV SCH (03:46)
[2024-04-14 06:10] LABS: Basophils # (auto) 0.1 10 ^3/uL (0-0.2); Eosinophils # (auto) 0.2 10 ^3/uL (0-0.8); Hemoglobin 8.4 g/dL (12.2-16.2)
[2024-04-14 06:14] LABS: Basophils % (auto) 0.6 % (0.0-2.0); Hematocrit 25.5 % (36.0-46.0); Lymphocytes # (auto) 0.7 10 ^3/uL (0.4-5.4); Lymphocytes % (auto) 4.3 % (10.0-50.0); Mean Corpuscular Hemoglobin 27.4 pg (28.0-32.0); Mean Corpuscular Hgb Conc. 32.9 g/dL (32.0-36.0); Mean Corpuscular Volume 83.2 fL (80.0-100.0); Neutrophils # (auto) 14.5 10 ^3/uL (1.6-8.6); Neutrophils % (auto) 88.1 % (37.0-80.0); Nucleated Red Blood Cells % 0.6 %; Platelet Count (auto) 394 10^3/uL (140-450); Red Blood Cells 3.06 10^6/uL (4.0-5.20); Red Cell Distribution Width 18.1 % (11.8-14.3); White Blood Cell 16.4 10^3/uL (4.4-10.8)
[2024-04-14 06:42] LABS: Alanine Aminotransferase 19 U/L (7-40); Albumin 3.2 g/dL (3.2-4.8); Anion Gap 8 (5-15); Aspartate Aminotransferase 21 U/L (13-40); BUN/Creatinine Ratio 32.5 (10.0-20.0); Bilirubin, Total 0.9 mg/dL (0.2-1.0); Calcium 9.2 mg/dL (8.7-10.4); Carbon Dioxide 26 mmol/L (20-31); Chloride 102 mmol/L (98-107); Potassium 4.2 mmol/L (3.5-5.1)
[2024-04-14 06:43] LABS: Alkaline Phosphatase 209 U/L (46-116); Blood Urea Nitrogen 38 mg/dL (9-23); Glucose 232 mg/dL (74-106); Sodium 136 mmol/L (136-145); Total Protein 5.5 g/dL (5.7-8.2)
[2024-04-14 08:54] LABS: % Iron Saturation 4.1 % (15-50)
[2024-04-14] MEDS ORDERED: levoFLOXacin 250 MG TAB PO SCH (12:00)
--- NOTE | 2024-04-14 12:28 | DVHPN2 ---
Progress Note - Dictate Date Seen: Apr 14, 2024 Medical Necessity Reason Pt with a Central, PICC or Fol: No Subjective Patient with improvement in respiratory status. She notes some pain at the site of her lower extremity cellulitis. vital signs Vital Sign Date Time Temp Pulse Resp B/P (MAP) Pulse Ox O2 Delivery O2 Flow Rate FiO2 04/14/24 09:00 98.3 97 16 148/83 (104) 97 98.3 04/13/24 23:01 Nasal Cannula* 2 28 Total Intake and Output 04/13/24 04/13/24 04/14/24 15:00 23:00 07:00 Intake Total 400 ml Output Total 2250 ml 1350 ml Balance -2250 ml -950 ml medications Current Medications Medications Dose Ordered Sig/Kate Route Start Time Stop Time Status Last Admin Dose Admin Nitroglycerin 0.4 mg Q5MINP PRN SL 04/13/24 02:00 Morphine Sulfate 2 mg Q30M PRN IV 04/13/24 02:00 04/13/24 18:45 2 MG Furosemide 40 mg Q8HP IV 04/13/24 06:00 04/14/24 06:25 40 MG Diagnostic Test (Pha) 1 strip ACHS 04/13/24 07:00 04/14/24 06:25 1 STRIP Insulin Human Regular AC SC 04/13/24 07:00 04/14/24 06:36 8 UNITS Insulin Human Regular HS SC 04/13/24 22:00 Dextrose 50 ml UD PRN IV 04/13/24 05:00 Acetaminophen 650 mg Q4HP PRN PO 04/13/24 23:45 04/14/24 00:21 650 MG Levofloxacin 750 mg DAILY PO 04/14/24 12:00 UNV objective General appearance: No acute distress Respiratory:Fine bibasilar crackles Cardiovascular: Regular rate and rhythm, no murmurs. No edema Abdomen: Soft, nondistended, nontender, bowel sounds present MSK: Normal range of motion. Neuro: Alert, no neurological deficits Skin: LE cellulitis Psych: Appropriate mood and affect. laboratory and microbiology Laboratory Tests 04/14/24 05:18 Test 04/14/24 05:18 Range/Units Serum Glucose 232 H 74-106 mg/dL Assessment/Plan 1. Acute respiratory failure secondary to pulmonary hypertension 2. Cellulitis of lower extremities 3. Anemia 4. BERNADINE 5. Type 2 diabetes 6. Morbid obesity 7. Severe Pulmonary Hypertension Plan: -Cardiology consulted for underlying pulmonary hypertension. -Pulmonary consulted for acute respiratory failure -Continue vancomycin and Zosyn for cellulitis. Plan to transition to oral regimen on discharge. -Nephrology consulted for BERNADINE -Endocrine consulted for type 2 diabetes uncontrolled -Iron studies pending -A1c pending -Home oxygen ordered -Full code Plan discussed with: Patient CC Plasma Assessment Blood Product Administration S: [id number] DEJAN KRAMER DO Apr 14, 2024 12:28
[2024-04-14] MEDS ORDERED: VANCOMYCIN PER PHARMACY 0 MG IV SCH (12:30)
--- NOTE | 2024-04-14 13:34 | ECG ---
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
[2024-04-14 14:50] LABS: INR 1.21 (0.9-1.15); Partial Thromboplastin Time 29.3 SEC (24.5-34.5); Prothrombin Time 12.6 sec (9.3-11.8)
--- NOTE | 2024-04-14 15:38 | DVHINCON2 ---
Date Seen: Apr 14, [address] Brandt Reason for Consultation Shortness of breath History of Present Illness 68-year-old lady with a diagnosis of pulmonary hypertension. Requested to do right and left heart catheterization. Patient has a history of left heart catheterization last month showing no significant coronary artery disease. Echocardiogram shows severe tricuspid insufficiency with pulmonary hypertension with pressures of greater than 100 mmHg in the right ventricle and pulmonary artery. Patient does have a history of methamphetamine abuse last use according to her was three months ago. She gets progressively short of breath. An edematous with cellulitis of the lower extremities. Past Medical History Pulmonary hypertension. Diabetes. Cellulitis edema. Anemia. Dizziness. Past Surgical History . Family History: Cancer G8 MOTHER Hypertension G8 MOTHER Allergies: Coded Allergies: NO KNOWN ALLERGIES (Unverified , 11/14/10) Home Meds Active Scripts Sildenafil Citrate (SILDENAFIL CITRATE) 20 Mg Tab, 20 MG OR TID for 30 Days, #90 TAB 1 Refill Prov:SLOANEMichoacanoDEJAN RAMIREZ DO 01/26/24 Furosemide (Lasix) 40 Mg Tab, 40 MG PO DAILY, #5 TAB 0 Refills Prov:CORINKELLY RAMIREZI Sharmila DO 01/26/24 Carvedilol (COREG) 3.125 Mg Tab, 3.125 MG OR BID for 30 Days, #60 TAB 0 Refills Prov:SLOANEMichoacanoKELLY RAMIREZI Sharmila DO 01/26/24 Aspirin (Aspirin Low Dose) 81 Mg Tab, 81 MG PO DAILY for 30 Days, #30 TAB 0 Refills Prov:CORINKELLY RAMIREZCarli Doll DO 01/26/24 Atorvastatin Calcium (ATORVASTATIN CALCIUM) 40 Mg Tab, 1 TAB PO DAILY, #30 TAB 1 Refill Prov:CORINKELLY RAMIREZI Sharmila DO 01/26/24 Metformin Hydrochloride (Glucophage) 500 Mg Tb, 1000 MG PO IBID for 30 Days, TAB Prov:TAQUERIA POSADAS MD 11/29/13 Insulin Isophane & Reg (Human) (Humulin 70/30) 100 Units/1 Ml Units, 20 UNITS SC IBID for 30 Days, INJ Prov:TAQUERIA POSADAS MD 11/29/13 Reported Medications Gabapentin (Gabapentin) 600 Mg Tab, 600 MG PO for 30 Days, MG 04/13/24 Benazepril Hcl (Benazepril Hcl) 20 Mg Tab, 1 TAB PO BID, #30 TAB 5 Refills 10/20/23 Current Medications Current Medications Medications (Trade) Dose Ordered Sig/Kate Route PRN Reason Start Time Stop Time Status Last Admin Insulin Human Regular (InsuLIN R) HS SC 04/13/24 22:00 Vancomycin HCl 250 ml @ 250 mls/hr DAILY IV 04/14/24 04:00 04/14/24 10:21 Acetaminophen (Tylenol Tablet) 650 mg Q4HP PRN PO MILD PAIN (1-3 PAIN SCALE) 04/13/24 23:45 04/14/24 00:21 Levofloxacin (Levaquin Tablet) 750 mg DAILY PO 04/14/24 12:00 04/14/24 12:23 DC Vancomycin HCl 0 ml @ 0 mls/hr UD IV 04/14/24 12:30 Piperacillin Sod/ Tazobactam Sod 100 ml @ 25 mls/hr Q8HR IV 04/14/24 14:00 Insulin Glargine (Lantus) 10 units HS SC 04/14/24 22:00 Review of Systems From a constitutional standpoint she has had a significant history of weight gain. Cardiac and respiratory as noted above. GI and musculoskeletal significant for edema of the lower extremities as well as integumentary with a history of cellulitis. Neurologically oncological dermatologically otherwise negative. Vital Signs Vital Signs Date Time Temp Pulse Resp B/P (MAP) Pulse Ox O2 Delivery O2 Flow Rate FiO2 04/14/24 13:00 97.5 96 18 128/59 (82) 95 97.5 04/13/24 23:01 Nasal Cannula* 2 28 Physical Exam Vital signs are as noted. HEENT examination is otherwise unremarkable orally well hydrated. Trachea central neck supple thyroid is nonpalpable is no jugular distention no bruits. Lungs reveal diminished air entry. Heart exam reveals regular S1-S2 there is a loud P2 component in the left upper sternal area. 1/6 systolic ejection murmur. Abdominal examination reveals globular abdomen. Extremities show adequate perfusion without clubbing or cyanosis there is moderate edema and cellulitis bilaterally more on the right. Integumentary with a history of cellulitis as mentioned. Labs/Diagnostic Data Labs Test 04/14/24 14:15 04/14/24 12:17 04/14/24 05:18 04/13/24 11:30 Range/Units Prothrombin Time 12.6 H 9.3-11.8 sec Prothrombin Time INR 1.21 H 0.9-1.15 Activated Partial Thromboplast Time 29.3 24.5-34.5 SEC POC Glucose 248 H 70-106 mg/dl White Blood Count 16.4 H 4.4-10.8 10^3/uL Red Blood Count 3.06 L 4.0-5.20 10^6/uL Hemoglobin 8.4 L 12.2-16.2 g/dL Hematocrit 25.5 #L 36.0-46.0 % Mean Corpuscular Volume 83.2 80.0-100.0 fL Mean Corpuscular Hemoglobin 27.4 L 28.0-32.0 pg Mean Corpuscular Hemoglobin Concent 32.9 32.0-36.0 g/dL Red Cell Distribution Width 18.1 H 11.8-14.3 % Platelet Count 394 140-450 10^3/uL Mean Platelet Volume 7.6 6.9-10.8 fL Neutrophils (%) (Auto) 88.1 H 37.0-80.0 % Lymphocytes (%) (Auto) 4.3 L 10.0-50.0 % Monocytes (%) (Auto) 6.0 0.0-12.0 % Eosinophils (%) (Auto) 1.0 0.0-7.0 % Basophils (%) (Auto) 0.6 0.0-2.0 % Neutrophils # (Auto) 14.5 H 1.6-8.6 10 ^3/uL Lymphocytes # (Auto) 0.7 0.4-5.4 10 ^3/uL Monocytes # (Auto) 1.0 0-1.3 10 ^3/uL Eosinophils # (Auto) 0.2 0-0.8 10 ^3/uL Basophils # (Auto) 0.1 0-0.2 10 ^3/uL Nucleated Red Blood Cells 0.6 % Sodium Level 136 136-145 mmol/L Potassium Level 4.2 3.5-5.1 mmol/L Chloride Level 102 98-107 mmol/L Carbon Dioxide Level 26 20-31 mmol/L Anion Gap 8 5-15 Blood Urea Nitrogen 38 H 9-23 mg/dL Creatinine 1.17 H 0.550-1.02 mg/dL Glomerular Filtration Rate Calc 51 >90 mL/min BUN/Creatinine Ratio 32.5 H 10.0-20.0 Serum Glucose 232 H 74-106 mg/dL Hemoglobin A1c 9.4 H <5.7 % A1C Calcium Level 9.2 8.7-10.4 mg/dL Iron Level 13 L 50-170 ug/dL Total Iron Binding Capacity 320 250-425 ug/dL Percent Iron Saturation 4.1 L 15-50 % Ferritin 26.1 10-291 ng/mL Total Bilirubin 0.9 0.2-1.0 mg/dL Aspartate Amino Transferase (AST) 21 13-40 U/L Alanine Aminotransferase (ALT) 19 7-40 U/L Alkaline Phosphatase 209 H 46-116 U/L Total Protein 5.5 L 5.7-8.2 g/dL Albumin 3.2 3.2-4.8 g/dL Urine Color Light-yellow Yellow Urine Clarity Clear Clear Urine pH 5.0 5.0-9.0 Urine Specific [place] 1.019 1.001-1.035 Urine Protein Negative Negative Urine Ketones Negative Negative Urine Blood Negative Negative /uL Urine Nitrite Negative Negative Urine Bilirubin Negative Negative Urine Urobilinogen Normal Negative mg/dL Urine Leukocyte Esterase Negative Negative /uL Urine RBC None seen 0 - 4 /hpf Urine Microscopic WBC 1 0-5 /HPF Urine Squamous Epithelial Cells Few <5 /hpf Urine Bacteria None seen None Seen /hpf Urine Glucose 2+ H Normal mg/dL Test 04/13/24 08:00 04/12/24 23:23 04/12/24 22:14 Range/Units Lactic Acid Level 2.6 *H 0.4-2.0 mmol/L Troponin I High Sensitivity 27 </=34 ng/L B-Type Natriuretic Peptide 918.45 0-100 pg/mL Microbiology Date/Time Source Procedure Growth Status 04/13/24 01:15 Blood Blood Culture - Preliminary NO GROWTH AFTER 24 HOURS OF INCUBATION. Resulted Assessment Significant pulmonary hypertension secondary to methamphetamine abuse most likely. Diabetes hypertension cardiomyopathy. Echo showing pericardial effusion not have clinical significance. Plan/Recommendation Patient will require specific treatment for pulmonary hypertension or right heart catheterization is necessary to confirm. We will discuss with primary car e physician and consider right heart catheterization either on this admission or as an outpatient. Plan discussed with: Patient, Other NYHA Physical activity limitations: Class4(Severe)discomfort Date of Service: Apr 14, 2024 Billing Provider: SUREKHA BEE Sr., MD Cardiology Common Codes: [id number] INP/OBS CARE (High) SUREKHA BEE Sr., MD Apr 14, 2024 15:38
--- NOTE | 2024-04-14 15:41 | DVHINCON2 ---
Date of service: Apr 14, [address] Kramer Reason for Consultation hyperglycemia History of Present Illness 68 year old female with a history of type II diabetes mellitus, hypertension, pulmonary hypertension who presented to the hospital on 04/12 with progressively worsening dyspnea and leg swelling. Patient was hemodynamically stable on admission satting well on room air. Initial lab work showed BG >500mg/dL with evidence of non-anion gap metabolic acidosis. She has been managed during the hospital for acute LE cellulitis with IV antibiotics. Regarding her history of diabetes she is maintained on Lantus 10 units nightly and Humalog SSI with meals. A1c 9.4%. Since admission patient has been maintained on regular insulin high intensity correctional. BG values have been labile ranging with episodes of fasting and postprandial hyperglycemia as well as postprandial hypoglycemia as well. Past Medical History Problems Medical Problems: (1) Shortness of breath Status: Acute (2) Symptomatic anemia Status: Acute (3) Uncontrolled diabetes mellitus Status: Acute Past Surgical History Past Surgical History Medical Problems: (1) Shortness of breath Status: Acute (2) Symptomatic anemia Status: Acute (3) Uncontrolled diabetes mellitus Status: Acute Family History: Cancer G8 MOTHER Hypertension G8 MOTHER Allergies: Coded Allergies: NO KNOWN ALLERGIES (Unverified , 11/14/10) Home Meds Active Scripts Sildenafil Citrate (SILDENAFIL CITRATE) 20 Mg Tab, 20 MG OR TID for 30 Days, #90 TAB 1 Refill Prov:DEJAN KRAMER DO 01/26/24 Furosemide (Lasix) 40 Mg Tab, 40 MG PO DAILY, #5 TAB 0 Refills Prov:DEJAN KRAMER DO 01/26/24 Carvedilol (COREG) 3.125 Mg Tab, 3.125 MG OR BID for 30 Days, #60 TAB 0 Refills Prov:DEJAN KRAMER DO 01/26/24 Aspirin (Aspirin Low Dose) 81 Mg Tab, 81 MG PO DAILY for 30 Days, #30 TAB 0 Refills Prov:DEJAN KRAMER DO 01/26/24 Atorvastatin Calcium (ATORVASTATIN CALCIUM) 40 Mg Tab, 1 TAB PO DAILY, #30 TAB 1 Refill Prov:DEJAN KRAMER DO 01/26/24 Metformin Hydrochloride (Glucophage) 500 Mg Tb, 1000 MG PO IBID for 30 Days, TAB Prov:TAQUERIA POSADAS MD 11/29/13 Insulin Isophane & Reg (Human) (Humulin 70/30) 100 Units/1 Ml Units, 20 UNITS SC IBID for 30 Days, INJ Prov:TAQUERIA POSADAS MD 11/29/13 Reported Medications Gabapentin (Gabapentin) 600 Mg Tab, 600 MG PO for 30 Days, MG 04/13/24 Benazepril Hcl (Benazepril Hcl) 20 Mg Tab, 1 TAB PO BID, #30 TAB 5 Refills 10/20/23 Current Medications Current Medications Medications (Trade) Dose Ordered Sig/Kate Route PRN Reason Start Time Stop Time Status Last Admin Insulin Human Regular (InsuLIN R) HS SC 04/13/24 22:00 Vancomycin HCl 250 ml @ 250 mls/hr DAILY IV 04/14/24 04:00 04/14/24 10:21 Acetaminophen (Tylenol Tablet) 650 mg Q4HP PRN PO MILD PAIN (1-3 PAIN SCALE) 04/13/24 23:45 04/14/24 00:21 Levofloxacin (Levaquin Tablet) 750 mg DAILY PO 04/14/24 12:00 04/14/24 12:23 DC Vancomycin HCl 0 ml @ 0 mls/hr UD IV 04/14/24 12:30 Piperacillin Sod/ Tazobactam Sod 100 ml @ 25 mls/hr Q8HR IV 04/14/24 14:00 Insulin Glargine (Lantus) 10 units HS SC 04/14/24 22:00 Review of Systems Negative except that which is stated in HPI Vital Signs Vital Signs Date Time Temp Pulse Resp B/P (MAP) Pulse Ox O2 Delivery O2 Flow Rate FiO2 04/14/24 13:00 97.5 96 18 128/59 (82) 95 97.5 04/14/24 08:00 Nasal Cannula* 2 28 Physical Exam Gen - lying in bed, in no acute distress HEENT - no thyromegaly, no lymphadenopathy CV - RRR, no m/r/g Resp - CTAB Ext - cellulitis in lower extremities Labs/Diagnostic Data Labs Test 04/14/24 14:15 04/14/24 12:17 04/14/24 05:18 04/13/24 11:30 Range/Units Prothrombin Time 12.6 H 9.3-11.8 sec Prothrombin Time INR 1.21 H 0.9-1.15 Activated Partial Thromboplast Time 29.3 24.5-34.5 SEC POC Glucose 248 H 70-106 mg/dl White Blood Count 16.4 H 4.4-10.8 10^3/uL Red Blood Count 3.06 L 4.0-5.20 10^6/uL Hemoglobin 8.4 L 12.2-16.2 g/dL Hematocrit 25.5 #L 36.0-46.0 % Mean Corpuscular Volume 83.2 80.0-100.0 fL Mean Corpuscular Hemoglobin 27.4 L 28.0-32.0 pg Mean Corpuscular Hemoglobin Concent 32.9 32.0-36.0 g/dL Red Cell Distribution Width 18.1 H 11.8-14.3 % Platelet Count 394 140-450 10^3/uL Mean Platelet Volume 7.6 6.9-10.8 fL Neutrophils (%) (Auto) 88.1 H 37.0-80.0 % Lymphocytes (%) (Auto) 4.3 L 10.0-50.0 % Monocytes (%) (Auto) 6.0 0.0-12.0 % Eosinophils (%) (Auto) 1.0 0.0-7.0 % Basophils (%) (Auto) 0.6 0.0-2.0 % Neutrophils # (Auto) 14.5 H 1.6-8.6 10 ^3/uL Lymphocytes # (Auto) 0.7 0.4-5.4 10 ^3/uL Monocytes # (Auto) 1.0 0-1.3 10 ^3/uL Eosinophils # (Auto) 0.2 0-0.8 10 ^3/uL Basophils # (Auto) 0.1 0-0.2 10 ^3/uL Nucleated Red Blood Cells 0.6 % Sodium Level 136 136-145 mmol/L Potassium Level 4.2 3.5-5.1 mmol/L Chloride Level 102 98-107 mmol/L Carbon Dioxide Level 26 20-31 mmol/L Anion Gap 8 5-15 Blood Urea Nitrogen 38 H 9-23 mg/dL Creatinine 1.17 H 0.550-1.02 mg/dL Glomerular Filtration Rate Calc 51 >90 mL/min BUN/Creatinine Ratio 32.5 H 10.0-20.0 Serum Glucose 232 H 74-106 mg/dL Hemoglobin A1c 9.4 H <5.7 % A1C Calcium Level 9.2 8.7-10.4 mg/dL Iron Level 13 L 50-170 ug/dL Total Iron Binding Capacity 320 250-425 ug/dL Percent Iron Saturation 4.1 L 15-50 % Ferritin 26.1 10-291 ng/mL Total Bilirubin 0.9 0.2-1.0 mg/dL Aspartate Amino Transferase (AST) 21 13-40 U/L Alanine Aminotransferase (ALT) 19 7-40 U/L Alkaline Phosphatase 209 H 46-116 U/L Total Protein 5.5 L 5.7-8.2 g/dL Albumin 3.2 3.2-4.8 g/dL Urine Color Light-yellow Yellow Urine Clarity Clear Clear Urine pH 5.0 5.0-9.0 Urine Specific [place] 1.019 1.001-1.035 Urine Protein Negative Negative Urine Ketones Negative Negative Urine Blood Negative Negative /uL Urine Nitrite Negative Negative Urine Bilirubin Negative Negative Urine Urobilinogen Normal Negative mg/dL Urine Leukocyte Esterase Negative Negative /uL Urine RBC None seen 0 - 4 /hpf Urine Microscopic WBC 1 0-5 /HPF Urine Squamous Epithelial Cells Few <5 /hpf Urine Bacteria None seen None Seen /hpf Urine Glucose 2+ H Normal mg/dL Test 04/13/24 08:00 04/12/24 23:23 04/12/24 22:14 Range/Units Lactic Acid Level 2.6 *H 0.4-2.0 mmol/L Troponin I High Sensitivity 27 </=34 ng/L B-Type Natriuretic Peptide 918.45 0-100 pg/mL Microbiology Date/Time Source Procedure Growth Status 04/13/24 01:15 Blood Blood Culture - Preliminary NO GROWTH AFTER 24 HOURS OF INCUBATION. Resulted Assessment # Uncontrolled type II diabetes mellitus with hyperglycemia # Acute respiratory failure secondary to pulmonary hypertension # Cellulitis of lower extremities # Anemia # Acute kidney injury # Class III obesity # Pulmonary hypertension Longstanding history of DM uncontrolled at baseline. Variable BG since admission in the setting of sole regular SSI. Will transition to basal-bolus insulin therapy to maintain BG 140-180mg/dL. - Start glargine 20 units nightly - Start lispro 8 units with meals - Start low intensity lispro correctional 4 times daily - POC BG monitoring 4 times daily - Hypoglycemia protocol Plan discussed with: Patient DEVORAH CEVALLOS MD Apr 14, 2024 15:41
[2024-04-14] MEDS ORDERED: DEXTROSE (50%) 50ML SYRG IV PRN (16:15)
[2024-04-14] MEDS: PIPERACILLIN-TAZOB 3.375GM 100 ML IV SCH (16:23)
[2024-04-14] MEDS: INSULIN LISPRO (HUMAN) 100 UNITS/ML ML SC SCH ×2 (17:00→17:28)
--- NOTE | 2024-04-14 17:03 | DVHINCON2 ---
Date of service: Apr 14, [address] Kramer Reason for Consultation Acute kidney injury History of Present Illness Patient is a 68-year-old obese female with past medical history significant for Anemia, DM, HTN, chronic diastolic heart failure and UTI'S is admitted for worsening shortness of breath generalized fatigue and elevated blood glucose. On admission patient found to have elevated BUN creatinine nephrology is consulted Past Medical History PAST MEDICAL HISTORY: Anemia, DM, HTN, UTI'S, Congestive heart failure Past Surgical History Surgical History: Allergies: Coded Allergies: NO KNOWN ALLERGIES (Unverified , 11/14/10) Home Meds Active Scripts Sildenafil Citrate (SILDENAFIL CITRATE) 20 Mg Tab, 20 MG OR TID for 30 Days, #90 TAB 1 Refill Prov:DEJAN KRAMER DO 01/26/24 Furosemide (Lasix) 40 Mg Tab, 40 MG PO DAILY, #5 TAB 0 Refills Prov:DEJAN KRAMER DO 01/26/24 Carvedilol (COREG) 3.125 Mg Tab, 3.125 MG OR BID for 30 Days, #60 TAB 0 Refills Prov:DEJAN KRAMER DO 01/26/24 Aspirin (Aspirin Low Dose) 81 Mg Tab, 81 MG PO DAILY for 30 Days, #30 TAB 0 Refills Prov:DEJAN KRAMER DO 01/26/24 Atorvastatin Calcium (ATORVASTATIN CALCIUM) 40 Mg Tab, 1 TAB PO DAILY, #30 TAB 1 Refill Prov:DEJAN KRAMER DO 01/26/24 Metformin Hydrochloride (Glucophage) 500 Mg Tb, 1000 MG PO IBID for 30 Days, TAB Prov:TAQUERIA POSADAS MD 11/29/13 Insulin Isophane & Reg (Human) (Humulin 70/30) 100 Units/1 Ml Units, 20 UNITS SC IBID for 30 Days, INJ Prov:TAQUERIA POSADAS MD 11/29/13 Reported Medications Gabapentin (Gabapentin) 600 Mg Tab, 600 MG PO for 30 Days, MG 04/13/24 Benazepril Hcl (Benazepril Hcl) 20 Mg Tab, 1 TAB PO BID, #30 TAB 5 Refills 10/20/23 Current Medications Current Medications Medications (Trade) Dose Ordered Sig/Kate Route PRN Reason Start Time Stop Time Status Last Admin Levofloxacin (Levaquin Tablet) 750 mg DAILY PO 04/14/24 12:00 04/14/24 12:23 DC Vancomycin HCl 0 ml @ 0 mls/hr UD IV 04/14/24 12:30 Piperacillin Sod/ Tazobactam Sod 100 ml @ 25 mls/hr Q8HR IV 04/14/24 14:00 04/15/24 06:20 Insulin Glargine (Lantus) 10 units HS SC 04/14/24 22:00 04/14/24 16:06 DC Insulin Glargine (Lantus) 20 units at bedtime HS SC 04/14/24 22:00 04/14/24 16:52 DC Insulin Human Lispro (HumaLOG) 8 units AC AC SC 04/14/24 17:00 04/14/24 19:00 DC 04/14/24 17:28 Diagnostic Test (Pha) (Accu-Chek Comfort Curve T) 1 strip ACHS 04/14/24 17:00 04/15/24 06:26 Insulin Human Regular (InsuLIN R) [facility] 04/14/24 22:00 04/14/24 20:11 DC Insulin Human Regular (InsuLIN R) [facility] 04/14/24 17:00 04/14/24 17:28 Dextrose 50 ml UD PRN IV Blood Sugar LESS THAN 60 04/14/24 16:15 Insulin Glargine (Lantus) 20 units [facility] 04/14/24 22:00 04/14/24 22:18 Sildenafil Citrate (Revatio) 20 mg TID@08,14,20 PO 04/14/24 20:00 04/15/24 10:36 Insulin Human Lispro (HumaLOG) 8 units AC [place] 04/14/24 17:00 04/15/24 06:26 Family History: Cancer G8 MOTHER Hypertension G8 MOTHER Review of Systems All 12 item review of systems reviewed with the patient nonsignificant except what is mentioned in the history of present illness H&P Exam Vital Signs/I&O Vital Sign Date Time Temp Pulse Resp B/P (MAP) Pulse Ox O2 Delivery O2 Flow Rate FiO2 04/15/24 09:15 97.5 94 18 108/55 (72) 91 97.5 04/14/24 19:30 Nasal Cannula* 2 28 Intake and Output 04/14/24 04/15/24 19:00 07:00 Intake Total 450 ml 700 ml Output Total 1400 ml 750 ml Balance -950 ml -50 ml Intake Oral 450 ml 700 ml Output Urine Total 1400 ml 750 ml Physical Exam Obese female awake and alert Lungs clear to auscultation bilaterally Cardiac exam regular rate and rhythm GI bowel sounds are present Win catheter Extremity right lower extremity cellulitis Neuro nonfocal Labs/Diagnostic Data Labs/Diagnostic Data Laboratory Tests Test 04/15/24 06:36 04/15/24 06:01 04/15/24 05:38 04/14/24 20:48 Range/Units White Blood Count 12.4 H 4.4-10.8 10^3/uL Red Blood Count 3.52 L 4.0-5.20 10^6/uL Hemoglobin 9.4 L 12.2-16.2 g/dL Hematocrit 29.5 #L 36.0-46.0 % Mean Corpuscular Volume 83.8 80.0-100.0 fL Mean Corpuscular Hemoglobin 26.8 L 28.0-32.0 pg Mean Corpuscular Hemoglobin Concent 32.0 32.0-36.0 g/dL Red Cell Distribution Width 18.7 H 11.8-14.3 % Platelet Count 386 140-450 10^3/uL Mean Platelet Volume 7.5 6.9-10.8 fL Neutrophils (%) (Auto) 83.6 H 37.0-80.0 % Lymphocytes (%) (Auto) 6.4 L 10.0-50.0 % Monocytes (%) (Auto) 6.0 0.0-12.0 % Eosinophils (%) (Auto) 3.4 0.0-7.0 % Basophils (%) (Auto) 0.6 0.0-2.0 % Neutrophils # (Auto) 10.4 H 1.6-8.6 10 ^3/uL Lymphocytes # (Auto) 0.8 0.4-5.4 10 ^3/uL Monocytes # (Auto) 0.7 0-1.3 10 ^3/uL Eosinophils # (Auto) 0.4 0-0.8 10 ^3/uL Basophils # (Auto) 0.1 0-0.2 10 ^3/uL Nucleated Red Blood Cells 0.7 % Sodium Level 135 L 136-145 mmol/L Potassium Level 3.7 3.5-5.1 mmol/L Chloride Level 100 98-107 mmol/L Carbon Dioxide Level 24 20-31 mmol/L Anion Gap 11 5-15 Blood Urea Nitrogen 40 H 9-23 mg/dL Creatinine 1.29 H 0.550-1.02 mg/dL Glomerular Filtration Rate Calc 45 >90 mL/min BUN/Creatinine Ratio 31.0 H 10.0-20.0 Serum Glucose 149 H 74-106 mg/dL Calcium Level 9.1 8.7-10.4 mg/dL Total Bilirubin 0.9 0.2-1.0 mg/dL Aspartate Amino Transferase (AST) 23 13-40 U/L Alanine Aminotransferase (ALT) 19 7-40 U/L Alkaline Phosphatase 221 H 46-116 U/L Total Protein 6.6 5.7-8.2 g/dL Albumin 4.0 3.2-4.8 g/dL POC Glucose 179 H 209 H 70-106 mg/dl Influenza Type A Antigen Negative Negative Influenza Type B Antigen Negative Negative SARS-CoV-2 Antigen (Rapid) Negative NEGATIVE Test 04/14/24 20:23 04/14/24 16:25 04/14/24 14:15 04/14/24 12:17 Range/Units POC Glucose 193 H 236 H 248 H 70-106 mg/dl Prothrombin Time 12.6 H 9.3-11.8 sec Prothrombin Time INR 1.21 H 0.9-1.15 Activated Partial Thromboplast Time 29.3 24.5-34.5 SEC Test 04/14/24 06:31 04/14/24 05:18 04/13/24 22:05 04/13/24 17:41 Range/Units POC Glucose 207 H 61 L 73 70-106 mg/dl White Blood Count 16.4 H 4.4-10.8 10^3/uL Red Blood Count 3.06 L 4.0-5.20 10^6/uL Hemoglobin 8.4 L 12.2-16.2 g/dL Hematocrit 25.5 #L 36.0-46.0 % Mean Corpuscular Volume 83.2 80.0-100.0 fL Mean Corpuscular Hemoglobin 27.4 L 28.0-32.0 pg Mean Corpuscular Hemoglobin Concent 32.9 32.0-36.0 g/dL Red Cell Distribution Width 18.1 H 11.8-14.3 % Platelet Count 394 140-450 10^3/uL Mean Platelet Volume 7.6 6.9-10.8 fL Neutrophils (%) (Auto) 88.1 H 37.0-80.0 % Lymphocytes (%) (Auto) 4.3 L 10.0-50.0 % Monocytes (%) (Auto) 6.0 0.0-12.0 % Eosinophils (%) (Auto) 1.0 0.0-7.0 % Basophils (%) (Auto) 0.6 0.0-2.0 % Neutrophils # (Auto) 14.5 H 1.6-8.6 10 ^3/uL Lymphocytes # (Auto) 0.7 0.4-5.4 10 ^3/uL Monocytes # (Auto) 1.0 0-1.3 10 ^3/uL Eosinophils # (Auto) 0.2 0-0.8 10 ^3/uL Basophils # (Auto) 0.1 0-0.2 10 ^3/uL Nucleated Red Blood Cells 0.6 % Sodium Level 136 136-145 mmol/L Potassium Level 4.2 3.5-5.1 mmol/L Chloride Level 102 98-107 mmol/L Carbon Dioxide Level 26 20-31 mmol/L Anion Gap 8 5-15 Blood Urea Nitrogen 38 H 9-23 mg/dL Creatinine 1.17 H 0.550-1.02 mg/dL Glomerular Filtration Rate Calc 51 >90 mL/min BUN/Creatinine Ratio 32.5 H 10.0-20.0 Serum Glucose 232 H 74-106 mg/dL Hemoglobin A1c 9.4 H <5.7 % A1C Calcium Level 9.2 8.7-10.4 mg/dL Phosphorus Level 4.7 2.4-5.1 mg/dL Magnesium Level 1.5 L 1.6-2.6 mg/dL Iron Level 13 L 50-170 ug/dL Total Iron Binding Capacity 320 250-425 ug/dL Percent Iron Saturation 4.1 L 15-50 % Ferritin 26.1 10-291 ng/mL Total Bilirubin 0.9 0.2-1.0 mg/dL Aspartate Amino Transferase (AST) 21 13-40 U/L Alanine Aminotransferase (ALT) 19 7-40 U/L Alkaline Phosphatase 209 H 46-116 U/L Total Protein 5.5 L 5.7-8.2 g/dL Albumin 3.2 3.2-4.8 g/dL Vitamin D 25-Hydroxy 46.1 30.0-100 ng/mL Parathyroid Hormone (Intact) 99.2 H 18.4-80.1 pg/mL Test 04/13/24 14:21 04/13/24 11:30 04/13/24 11:05 04/13/24 08:00 Range/Units White Blood Count 16.6 #H 13.2 H 4.4-10.8 10^3/uL Red Blood Count 3.42 L 2.88 L 4.0-5.20 10^6/uL Hemoglobin 9.3 #L 7.6 #L 12.2-16.2 g/dL Hematocrit 28.7 #L 24.4 #L 36.0-46.0 % Mean Corpuscular Volume 84.1 84.9 80.0-100.0 fL Mean Corpuscular Hemoglobin 27.2 L 26.5 L 28.0-32.0 pg Mean Corpuscular Hemoglobin Concent 32.3 31.2 L 32.0-36.0 g/dL Red Cell Distribution Width 18.0 H 18.2 H 11.8-14.3 % Platelet Count 437 414 140-450 10^3/uL Mean Platelet Volume 7.4 7.6 6.9-10.8 fL Neutrophils (%) (Auto) 78.6 80.9 H 37.0-80.0 % Lymphocytes (%) (Auto) 7.3 L 7.5 L 10.0-50.0 % Monocytes (%) (Auto) 10.0 9.6 0.0-12.0 % Eosinophils (%) (Auto) 3.3 1.2 0.0-7.0 % Basophils (%) (Auto) 0.8 0.8 0.0-2.0 % Neutrophils # (Auto) 13.1 H 10.7 H 1.6-8.6 10 ^3/uL Lymphocytes # (Auto) 1.2 1.0 0.4-5.4 10 ^3/uL Monocytes # (Auto) 1.7 H 1.3 0-1.3 10 ^3/uL Eosinophils # (Auto) 0.6 0.2 0-0.8 10 ^3/uL Basophils # (Auto) 0.1 0.1 0-0.2 10 ^3/uL Nucleated Red Blood Cells 1.1 0.7 % Urine Color Light-yellow Yellow Urine Clarity Clear Clear Urine pH 5.0 5.0-9.0 Urine Specific [place] 1.019 1.001-1.035 Urine Protein Negative Negative Urine Ketones Negative Negative Urine Blood Negative Negative /uL Urine Nitrite Negative Negative Urine Bilirubin Negative Negative Urine Urobilinogen Normal Negative mg/dL Urine Leukocyte Esterase Negative Negative /uL Urine RBC None seen 0 - 4 /hpf Urine Microscopic WBC 1 0-5 /HPF Urine Squamous Epithelial Cells Few <5 /hpf Urine Bacteria None seen None Seen /hpf Urine Glucose 2+ H Normal mg/dL POC Glucose 319 H 70-106 mg/dl Sodium Level 134 L 136-145 mmol/L Potassium Level 5.3 H 3.5-5.1 mmol/L Chloride Level 102 98-107 mmol/L Carbon Dioxide Level 24 20-31 mmol/L Anion Gap 8 5-15 Blood Urea Nitrogen 37 H 9-23 mg/dL Creatinine 1.05 H 0.550-1.02 mg/dL Glomerular Filtration Rate Calc 58 >90 mL/min BUN/Creatinine Ratio 35.2 H 10.0-20.0 Serum Glucose 395 H 74-106 mg/dL Lactic Acid Level 2.6 *H 0.4-2.0 mmol/L Calcium Level 9.1 8.7-10.4 mg/dL Total Bilirubin 0.9 0.2-1.0 mg/dL Aspartate Amino Transferase (AST) 35 13-40 U/L Alanine Aminotransferase (ALT) 26 7-40 U/L Alkaline Phosphatase 267 H 46-116 U/L Total Protein 6.7 5.7-8.2 g/dL Albumin 4.1 3.2-4.8 g/dL Test 04/13/24 05:37 04/13/24 01:47 04/13/24 01:15 04/12/24 23:23 Range/Units POC Glucose 396 H 397 H 70-106 mg/dl Lactic Acid Level 4.5 *H 0.4-2.0 mmol/L Troponin I High Sensitivity 27 </=34 ng/L Test 04/12/24 22:14 Range/Units White Blood Count 12.5 H 4.4-10.8 10^3/uL Red Blood Count 2.33 L 4.0-5.20 10^6/uL Hemoglobin 6.1 *L 12.2-16.2 g/dL Hematocrit 19.8 L 36.0-46.0 % Mean Corpuscular Volume 85.2 80.0-100.0 fL Mean Corpuscular Hemoglobin 26.0 L 28.0-32.0 pg Mean Corpuscular Hemoglobin Concent 30.5 L 32.0-36.0 g/dL Red Cell Distribution Width 19.0 H 11.8-14.3 % Platelet Count 461 H 140-450 10^3/uL Mean Platelet Volume 8.1 6.9-10.8 fL Neutrophils (%) (Auto) 81.2 H 37.0-80.0 % Lymphocytes (%) (Auto) 7.1 L 10.0-50.0 % Monocytes (%) (Auto) 9.3 0.0-12.0 % Eosinophils (%) (Auto) 1.0 0.0-7.0 % Basophils (%) (Auto) 1.4 0.0-2.0 % Neutrophils # (Auto) 10.1 H 1.6-8.6 10 ^3/uL Lymphocytes # (Auto) 0.9 0.4-5.4 10 ^3/uL Monocytes # (Auto) 1.2 0-1.3 10 ^3/uL Eosinophils # (Auto) 0.1 0-0.8 10 ^3/uL Basophils # (Auto) 0.2 0-0.2 10 ^3/uL Nucleated Red Blood Cells 0.8 % Sodium Level 133 L 136-145 mmol/L Potassium Level 5.2 H 3.5-5.1 mmol/L Chloride Level 105 98-107 mmol/L Carbon Dioxide Level 19 L 20-31 mmol/L Anion Gap 9 5-15 Blood Urea Nitrogen 37 H 9-23 mg/dL Creatinine 1.19 H 0.550-1.02 mg/dL Glomerular Filtration Rate Calc 50 >90 mL/min BUN/Creatinine Ratio 31.1 H 10.0-20.0 Serum Glucose 563 *H 74-106 mg/dL Calcium Level 9.6 8.7-10.4 mg/dL Troponin I High Sensitivity 25 </=34 ng/L B-Type Natriuretic Peptide 918.45 0-100 pg/mL Assessment Acute kidney injury superimposed Chronic Kidney Disease secondary hemodynamic mediated Precipitous drop in hemoglobin GI bleeding Uncontrolled diabetes mellitus Hyperglycemia Acute on Chronic diastolic Congestive heart failure Sepsis Nonobstructing right kidney stones Right lower extremity cellulitis Recommendations Closely monitor fluid and electrolytes Avoid nephrotoxic medications Strict I&Os Check urine electrolytes CT scan of the abdomen showed no hydronephrosis I agree with diuresis IV antibiotics Insulin sliding scale Packed red blood cell transfusion p.r.n. Cardiology consult GI consult We will continue to follow Patient seen and examined by myself. I discussed my plan of care with the patient and primary nurse at the bedside I would like to thank Dr. Kramer for the consult, will follow up Plan discussed with: Patient ROSA HINSON MD Apr 14, 2024 17:03
[2024-04-14] MEDS: ACCU-CHEK COMFORT CURVE STRIP VI SCH (17:28)
[2024-04-14] MEDS: InsuLIN REG 1unit/0.01ml Soln (100units/ml) SC SCH (17:28)
[2024-04-14 18:44] LABS: Magnesium 1.5 mg/dL (1.6-2.6); Phosphorus 4.7 mg/dL (2.4-5.1)
[2024-04-14] MEDS ORDERED: InsuLIN REG 1unit/0.01ml Soln (100units/ml) SC SCH (22:00)
[2024-04-14] MEDS ORDERED: INSULIN LANTUS (GLARGINE) 1 /0.01ml (100units/ml) SC SCH ×2 (22:00)
[2024-04-14] MEDS: SILDENAFIL CITRATE 20 MG TAB PO SCH (22:11)
[2024-04-14] MEDS: INSULIN LANTUS (GLARGINE) 1 /0.01ml (100units/ml) SC SCH (22:18)
[2024-04-15] VITALS (9 sets, daily range): BP systolic 92–117; BP diastolic 6–55; PULSE 67–100; RESP 17–20; TEMP 97.5–98.8; O2SAT 91–97
[2024-04-15 06:19] LABS: COVID19 ANTIGEN SOFIA FIA NEGATIVE (NEGATIVE); Rapid Influenza A Negative (Negative); Rapid Influenza B Negative (Negative)
[2024-04-15 07:12] LABS: Basophils # (auto) 0.1 10 ^3/uL (0-0.2); Eosinophils # (auto) 0.4 10 ^3/uL (0-0.8); Hemoglobin 9.4 g/dL (12.2-16.2); Lymphocytes # (auto) 0.8 10 ^3/uL (0.4-5.4)
[2024-04-15 07:16] LABS: Basophils % (auto) 0.6 % (0.0-2.0); Eosinophils % (auto) 3.4 % (0.0-7.0); Hematocrit 29.5 % (36.0-46.0); Lymphocytes % (auto) 6.4 % (10.0-50.0); Mean Corpuscular Hemoglobin 26.8 pg (28.0-32.0); Mean Corpuscular Volume 83.8 fL (80.0-100.0); Monocytes # (auto) 0.7 10 ^3/uL (0-1.3); Neutrophils # (auto) 10.4 10 ^3/uL (1.6-8.6); Neutrophils % (auto) 83.6 % (37.0-80.0); Nucleated Red Blood Cells % 0.7 %; Platelet Count (auto) 386 10^3/uL (140-450); Red Blood Cells 3.52 10^6/uL (4.0-5.20); Red Cell Distribution Width 18.7 % (11.8-14.3); White Blood Cell 12.4 10^3/uL (4.4-10.8)
[2024-04-15 07:34] LABS: Alanine Aminotransferase 19 U/L (7-40); Anion Gap 11 (5-15); Aspartate Aminotransferase 23 U/L (13-40); Bilirubin, Total 0.9 mg/dL (0.2-1.0); Calcium 9.1 mg/dL (8.7-10.4); Carbon Dioxide 24 mmol/L (20-31); Chloride 100 mmol/L (98-107); Potassium 3.7 mmol/L (3.5-5.1); Total Protein 6.6 g/dL (5.7-8.2)
[2024-04-15 07:42] LABS: Alkaline Phosphatase 221 U/L (46-116); Blood Urea Nitrogen 40 mg/dL (9-23); Glucose 149 mg/dL (74-106); Sodium 135 mmol/L (136-145)
--- NOTE | 2024-04-15 11:21 | DVHPN2 ---
Progress Note Date Seen: Apr 15, 2024 Medical Necessity Reason Pt with a Central, PICC or Fol: No Subjective Patient reports: No new complaints Review of Systems: RESPIRATORY:Abnormal Other Systems: Patient seen and examined by myself today in follow-up, O2 nasal cannula Objective vital signs Vital Sign Date Time Temp Pulse Resp B/P (MAP) Pulse Ox O2 Delivery O2 Flow Rate FiO2 04/15/24 09:15 97.5 94 18 108/55 (72) 91 97.5 04/14/24 19:30 Nasal Cannula* 2 28 Total Intake and Output 04/14/24 04/14/24 04/15/24 15:00 23:00 07:00 Intake Total 450 ml 700 ml Output Total 1400 ml 750 ml Balance -950 ml -50 ml medications Current Medications Medications Dose Ordered Sig/Kate Route Start Time Stop Time Status Last Admin Dose Admin Nitroglycerin 0.4 mg Q5MINP PRN SL 04/13/24 02:00 Hold Morphine Sulfate 2 mg Q30M PRN IV 04/13/24 02:00 04/13/24 18:45 Furosemide 40 mg Q8HP IV 04/13/24 06:00 04/15/24 06:20 Vancomycin HCl 250 ml @ 250 mls/hr DAILY IV 04/14/24 04:00 04/15/24 10:26 Acetaminophen 650 mg Q4HP PRN PO 04/13/24 23:45 04/14/24 16:15 Vancomycin HCl 0 ml @ 0 mls/hr UD IV 04/14/24 12:30 Piperacillin Sod/ Tazobactam Sod 100 ml @ 25 mls/hr Q8HR IV 04/14/24 14:00 04/15/24 06:20 Diagnostic Test (Pha) 1 strip ACHS 04/14/24 17:00 04/15/24 06:26 Insulin Human Regular AC SC 04/14/24 17:00 04/14/24 17:28 Dextrose 50 ml UD PRN IV 04/14/24 16:15 Insulin Glargine 20 units HS SC 04/14/24 22:00 04/14/24 22:18 Sildenafil Citrate 20 mg TID@08,14,20 PO 04/14/24 20:00 04/15/24 10:36 Insulin Human Lispro 8 units AC SC 04/14/24 17:00 04/15/24 06:26 Examination: LUNGS:Normal, CVS:Normal, MSK:Abnormal laboratory and microbiology Laboratory Tests 04/15/24 06:36 Test 04/15/24 06:36 Range/Units Serum Glucose 149 H 74-106 mg/dL Microbiology Date/Time Source Procedure Growth Status 04/13/24 01:15 Blood Blood Culture - Preliminary NO GROWTH AFTER 48 HOURS OF INCUBATION. Resulted Problem List/Assessment/Plan Problem List/Assessment/Plan Acute kidney injury superimposed Chronic Kidney Disease secondary hemodynamic mediated Precipitous drop in hemoglobin GI bleeding Uncontrolled diabetes mellitus Hyperglycemia Acute on Chronic diastolic Congestive heart failure Sepsis Nonobstructing right kidney stones Right lower extremity cellulitis Recommendations Kidney function slightly worsened today Increased urine output Strict I&Os Check urine electrolytes CT scan of the abdomen showed no hydronephrosis I agree with diuresis IV antibiotics Insulin sliding scale Packed red blood cell transfusion p.r.n. Cardiology consult GI consult We will continue to follow Plan discussed with: Patient My Orders My Orders Orders - ROSA HINSON MD Procedure Category Date Status Time Urine Sodium LAB 04/14/24 Logged 17:07 Urinalysis LAB 04/14/24 Logged 17:07 Urine LAB 04/14/24 Logged Protein/Creatinine 17:07 Dietary Evaluation Review Recommendations by RD: Dietary education by RD Comments: 1) Add CCHO 60g restritction to 2g Na diet order. 2) Referral to outpatient RD/[facility] for DM education and weight management. 3) Initiate vitamin C @ 500 mg bid. 4) Initiate zinc sulfate @ 220 mg qd. 5) Continue to monitor labs, appetite, and skin integrity Expected Outcomes/Goals: 1) appetite, labs, and wound to improve 2) f/u in 3-5 days CC Plasma Assessment Blood Product Administration S: [id number] ROSA HINSON MD Apr 15, 2024 11:21
[2024-04-15] MEDS ORDERED: HYDROcodone-ACET 5/325MG TAB PO PRN (11:30)
[2024-04-15] MEDS ORDERED: MORPHINE SULFATE INJ 2 MG/ml SYRG IV PRN (11:30)
--- NOTE | 2024-04-15 11:49 | DVHPN2 ---
Progress Note - Dictate Date Seen: Apr 15, 2024 Medical Necessity Reason Pt with a Central, PICC or Fol: No Subjective Reasonably appropriate fasting BG this AM. Postprandial hyperglycemia to 260mg/dL following breakfast. vital signs Vital Sign Date Time Temp Pulse Resp B/P (MAP) Pulse Ox O2 Delivery O2 Flow Rate FiO2 04/15/24 09:15 97.5 94 18 108/55 (72) 91 97.5 04/14/24 19:30 Nasal Cannula* 2 28 Total Intake and Output 04/14/24 04/14/24 04/15/24 15:00 23:00 07:00 Intake Total 450 ml 700 ml Output Total 1400 ml 750 ml Balance -950 ml -50 ml medications Current Medications Medications Dose Ordered Sig/Kate Route Start Time Stop Time Status Last Admin Dose Admin Nitroglycerin 0.4 mg Q5MINP PRN SL 04/13/24 02:00 Hold Morphine Sulfate 2 mg Q30M PRN IV 04/13/24 02:00 04/13/24 18:45 2 MG Furosemide 40 mg Q8HP IV 04/13/24 06:00 04/15/24 06:20 40 MG Vancomycin HCl 250 ml @ 250 mls/hr DAILY IV 04/14/24 04:00 04/15/24 10:26 250 MLS/HR Acetaminophen 650 mg Q4HP PRN PO 04/13/24 23:45 04/14/24 16:15 650 MG Vancomycin HCl 0 ml @ 0 mls/hr UD IV 04/14/24 12:30 Piperacillin Sod/ Tazobactam Sod 100 ml @ 25 mls/hr Q8HR IV 04/14/24 14:00 04/15/24 06:20 25 MLS/HR Diagnostic Test (Pha) 1 strip ACHS 04/14/24 17:00 04/15/24 06:26 1 STRIP Insulin Human Regular AC SC 04/14/24 17:00 04/14/24 17:28 6 UNITS Dextrose 50 ml UD PRN IV 04/14/24 16:15 Insulin Glargine 20 units HS SC 04/14/24 22:00 04/14/24 22:18 20 UNITS Sildenafil Citrate 20 mg TID@08,14,20 PO 04/14/24 20:00 04/15/24 10:36 20 MG Insulin Human Lispro 8 units AC SC 04/14/24 17:00 04/15/24 06:26 8 UNITS Acetaminophen/ Hydrocodone Bitart 1 tab Q4HPRN PRN PO 04/15/24 11:30 Acetaminophen/ Hydrocodone Bitart 1 tab Q4HP PRN PO 04/15/24 11:30 Morphine Sulfate 2 mg Q4HPRN PRN IV 04/15/24 11:30 UNV laboratory and microbiology Laboratory Tests 04/15/24 06:36 Test 04/15/24 06:36 Range/Units Serum Glucose 149 H 74-106 mg/dL Assessment/Plan # Uncontrolled type II diabetes mellitus with hyperglycemia # Acute respiratory failure secondary to pulmonary hypertension # Cellulitis of lower extremities # Anemia # Acute kidney injury # Class III obesity # Pulmonary hypertension Longstanding history of DM uncontrolled at baseline. Variable BG since admission in the setting of sole regular SSI. Will transition to basal-bolus insulin therapy to maintain BG 140-180mg/dL. - Continue glargine 20 units nightly - Increase lispro to 12 units with meals - Start low intensity lispro correctional 4 times daily (unclear whether this order possible in EHR) - POC BG monitoring 4 times daily - Hypoglycemia protocol Dietary Evaluation Review Recommendations by RD: Dietary education by RD Comments: 1) Add CCHO 60g restritction to 2g Na diet order. 2) Referral to outpatient RD/[facility] for DM education and weight management. 3) Initiate vitamin C @ 500 mg bid. 4) Initiate zinc sulfate @ 220 mg qd. 5) Continue to monitor labs, appetite, and skin integrity Expected Outcomes/Goals: 1) appetite, labs, and wound to improve 2) f/u in 3-5 days Plan discussed with: Patient CC Plasma Assessment Blood Product Administration S: [id number] DEVORAH CEVALLOS MD Apr 15, 2024 11:49
[2024-04-15 12:00] LABS: Urine Bacteria None Seen /hpf (None Seen)
[2024-04-15 12:23] LABS: Protein, Urine 14.9 mg/dL (1-14); Urine Blood Negative /uL (Negative); Urine Clarity Clear (Clear); Urine Color Light-Yellow (Yellow); Urine Protein, UAD Negative (Negative); Urine Specific Gravity 1.015 (1.001-1.035); Urine Squamous Epithelial Cell FEW /hpf (<5); Urine Urobilinogen Normal (Negative); Urine WBC 3 /HPF (0-5); Urine pH 5.5 (5.0-9.0)
[2024-04-15 12:25] LABS: Creatinine, Urine 34.04 mg/dL (30.0-125.0); Urine Protein/Creatinine Ratio 0.44
[2024-04-15] MEDS: INSULIN LISPRO (HUMAN) 100 UNITS/ML ML SC SCH ×2 (12:26→19:04)
--- NOTE | 2024-04-15 14:37 | DVHPN2 ---
Progress Note - Dictate Date Seen: Apr 15, 2024 Medical Necessity Reason Pt with a Central, PICC or Fol: No Subjective Patient complaining of LE pain with wound changes. vital signs Vital Sign Date Time Temp Pulse Resp B/P (MAP) Pulse Ox O2 Delivery O2 Flow Rate FiO2 04/15/24 13:00 97.8 75 20 113/53 (73) 93 97.8 04/15/24 08:00 Nasal Cannula* 2 28 Total Intake and Output 04/14/24 04/14/24 04/15/24 15:00 23:00 07:00 Intake Total 450 ml 700 ml Output Total 1400 ml 750 ml Balance -950 ml -50 ml medications Current Medications Medications Dose Ordered Sig/Kate Route Start Time Stop Time Status Last Admin Dose Admin Nitroglycerin 0.4 mg Q5MINP PRN SL 04/13/24 02:00 Hold Morphine Sulfate 2 mg Q30M PRN IV 04/13/24 02:00 04/13/24 18:45 2 MG Furosemide 40 mg Q8HP IV 04/13/24 06:00 04/15/24 06:20 40 MG Vancomycin HCl 250 ml @ 250 mls/hr DAILY IV 04/14/24 04:00 04/15/24 10:26 250 MLS/HR Acetaminophen 650 mg Q4HP PRN PO 04/13/24 23:45 04/14/24 16:15 650 MG Vancomycin HCl 0 ml @ 0 mls/hr UD IV 04/14/24 12:30 Piperacillin Sod/ Tazobactam Sod 100 ml @ 25 mls/hr Q8HR IV 04/14/24 14:00 04/15/24 06:20 25 MLS/HR Diagnostic Test (Pha) 1 strip ACHS 04/14/24 17:00 04/15/24 11:30 1 STRIP Insulin Human Regular AC SC 04/14/24 17:00 04/14/24 17:28 6 UNITS Dextrose 50 ml UD PRN IV 04/14/24 16:15 Insulin Glargine 20 units HS SC 04/14/24 22:00 04/14/24 22:18 20 UNITS Sildenafil Citrate 20 mg TID@08,14,20 PO 04/14/24 20:00 04/15/24 10:36 20 MG Acetaminophen/ Hydrocodone Bitart 1 tab Q4HPRN PRN PO 04/15/24 11:30 Acetaminophen/ Hydrocodone Bitart 1 tab Q4HP PRN PO 04/15/24 11:30 Morphine Sulfate 2 mg Q4HPRN PRN IV 04/15/24 11:30 Insulin Human Lispro 12 units AC SC 04/15/24 12:15 04/15/24 12:26 12 UNITS objective General appearance: No acute distress Respiratory:Fine bibasilar crackles Cardiovascular: Regular rate and rhythm, no murmurs. No edema Abdomen: Soft, nondistended, nontender, bowel sounds present MSK: Normal range of motion. Neuro: Alert, no neurological deficits Skin: LE cellulitis with wounds Psych: Appropriate mood and affect. laboratory and microbiology Laboratory Tests 04/15/24 06:36 Test 04/15/24 06:36 Range/Units Serum Glucose 149 H 74-106 mg/dL Assessment/Plan 1. Acute respiratory failure secondary to pulmonary hypertension 2. Cellulitis of lower extremities 3. Anemia 4. BERNADINE 5. Type 2 diabetes 6. Morbid obesity 7. Severe Pulmonary Hypertension Plan: -Cardiology consulted for underlying pulmonary hypertension. Plan for right heart cath on Wednesday. Starting on sildenafil 20mg TID. Patient counseled on meth cessation. -Pulmonary consulted for acute respiratory failure -Continue vancomycin and Zosyn for cellulitis. Plan to transition to oral regimen on discharge. -Nephrology consulted for BERNADINE -Endocrine consulted for type 2 diabetes uncontrolled. Glargine 20U bedtime, 8 units lispro mealtime with sliding scale -Iron studies pending -Home oxygen ordered -Full code Dietary Evaluation Review Recommendations by RD: Dietary education by RD Comments: 1) Add CCHO 60g restritction to 2g Na diet order. 2) Referral to outpatient RD/[facility] for DM education and weight management. 3) Initiate vitamin C @ 500 mg bid. 4) Initiate zinc sulfate @ 220 mg qd. 5) Continue to monitor labs, appetite, and skin integrity Expected Outcomes/Goals: 1) appetite, labs, and wound to improve 2) f/u in 3-5 days Plan discussed with: Patient CC Plasma Assessment Blood Product Administration S: [id number] DEJAN KRAMER DO Apr 15, 2024 14:37
[2024-04-16] VITALS (9 sets, daily range): BP systolic 111–150; BP diastolic 53–62; PULSE 84–95; RESP 17–19; TEMP 97.6–98.7; O2SAT 92–97
[2024-04-16] MEDS: HYDROcodone-ACET 10/325MG TAB PO PRN (01:46)
[2024-04-16 10:11] LABS: Basophils # (auto) 0.1 10 ^3/uL (0-0.2); Eosinophils # (auto) 0.2 10 ^3/uL (0-0.8); Eosinophils % (auto) 1.7 % (0.0-7.0); Lymphocytes # (auto) 0.9 10 ^3/uL (0.4-5.4); Mean Corpuscular Hemoglobin 26.4 pg (28.0-32.0); Monocytes # (auto) 1.3 10 ^3/uL (0-1.3); Neutrophils # (auto) 8.8 10 ^3/uL (1.6-8.6); White Blood Cell 11.3 10^3/uL (4.4-10.8)
[2024-04-16 10:14] LABS: Basophils % (auto) 1.1 % (0.0-2.0); Hematocrit 27.9 % (36.0-46.0); Hemoglobin 8.9 g/dL (12.2-16.2); Lymphocytes % (auto) 8.1 % (10.0-50.0); Mean Corpuscular Hgb Conc. 31.8 g/dL (32.0-36.0); Mean Corpuscular Volume 83.1 fL (80.0-100.0); Monocytes % (auto) 11.2 % (0.0-12.0); Neutrophils % (auto) 77.9 % (37.0-80.0); Nucleated Red Blood Cells % 0.6 %; Platelet Count (auto) 370 10^3/uL (140-450); Red Blood Cells 3.36 10^6/uL (4.0-5.20); Red Cell Distribution Width 19.2 % (11.8-14.3)
[2024-04-16 10:25] LABS: Alanine Aminotransferase 20 U/L (7-40); Albumin 3.7 g/dL (3.2-4.8); Anion Gap 9 (5-15); Aspartate Aminotransferase 19 U/L (13-40); BUN/Creatinine Ratio 32.6 (10.0-20.0); Bilirubin, Total 0.6 mg/dL (0.2-1.0); Calcium 8.9 mg/dL (8.7-10.4); Carbon Dioxide 27 mmol/L (20-31); Chloride 99 mmol/L (98-107); Potassium 3.7 mmol/L (3.5-5.1); Total Protein 6.3 g/dL (5.7-8.2)
[2024-04-16 10:32] LABS: Alkaline Phosphatase 215 U/L (46-116); Blood Urea Nitrogen 46 mg/dL (9-23); Glucose 222 mg/dL (74-106); Sodium 135 mmol/L (136-145)
--- NOTE | 2024-04-16 11:01 | DVHPN2 ---
Progress Note Date Seen: Apr 16, 2024 Medical Necessity Reason Pt with a Central, PICC or Fol: No Subjective Patient reports: No new complaints Other Systems: Patient seen and examined by myself today in follow-up Objective vital signs Vital Sign Date Time Temp Pulse Resp B/P (MAP) Pulse Ox O2 Delivery O2 Flow Rate FiO2 04/16/24 09:26 91 123/56 (78) 04/16/24 09:00 98.5 18 96 98.5 04/16/24 08:05 Nasal Cannula* 2 28 Total Intake and Output 04/15/24 04/15/24 04/16/24 15:00 23:00 07:00 Intake Total 300 ml 1400 ml 418 ml Output Total 2000 ml 700 ml Balance 300 ml -600 ml -282 ml medications Current Medications Medications Dose Ordered Sig/Kate Route Start Time Stop Time Status Last Admin Dose Admin Nitroglycerin 0.4 mg Q5MINP PRN SL 04/13/24 02:00 Hold Morphine Sulfate 2 mg Q30M PRN IV 04/13/24 02:00 04/13/24 18:45 2 MG Furosemide 40 mg Q8HP IV 04/13/24 06:00 04/15/24 15:09 40 MG Vancomycin HCl 250 ml @ 250 mls/hr DAILY IV 04/14/24 04:00 04/15/24 10:26 250 MLS/HR Acetaminophen 650 mg Q4HP PRN PO 04/13/24 23:45 04/14/24 16:15 650 MG Vancomycin HCl 0 ml @ 0 mls/hr UD IV 04/14/24 12:30 Piperacillin Sod/ Tazobactam Sod 100 ml @ 25 mls/hr Q8HR IV 04/14/24 14:00 04/16/24 05:57 25 MLS/HR Diagnostic Test (Pha) 1 strip ACHS 04/14/24 17:00 04/16/24 06:03 1 STRIP Insulin Human Regular AC SC 04/14/24 17:00 04/14/24 17:28 6 UNITS Dextrose 50 ml UD PRN IV 04/14/24 16:15 Insulin Glargine 20 units HS SC 04/14/24 22:00 04/15/24 21:50 20 UNITS Sildenafil Citrate 20 mg TID@08,14,20 PO 04/14/24 20:00 04/16/24 09:16 20 MG Acetaminophen/ Hydrocodone Bitart 1 tab Q4HPRN PRN PO 04/15/24 11:30 Acetaminophen/ Hydrocodone Bitart 1 tab Q4HP PRN PO 04/15/24 11:30 04/16/24 01:46 1 TAB Morphine Sulfate 2 mg Q4HPRN PRN IV 04/15/24 11:30 Insulin Human Lispro 14 units AC SC 04/15/24 18:45 04/16/24 05:58 14 UNITS Examination: LUNGS:Normal, CVS:Normal, MSK:Normal laboratory and microbiology Laboratory Tests 04/16/24 09:37 Test 04/16/24 09:37 Range/Units Serum Glucose 222 H 74-106 mg/dL Microbiology Date/Time Source Procedure Growth Status 04/13/24 01:15 Blood Blood Culture - Preliminary NO GROWTH AFTER 72 HOURS OF INCUBATION. Resulted Problem List/Assessment/Plan Problem List/Assessment/Plan Acute kidney injury superimposed Chronic Kidney Disease secondary hemodynamic mediated, ATN, feNa > 2% Precipitous drop in hemoglobin GI bleeding Uncontrolled diabetes mellitus Hyperglycemia Acute on Chronic diastolic Congestive heart failure Sepsis Nonobstructing right kidney stones Right lower extremity cellulitis Recommendations Kidney function slightly worsened today, vancomycin toxicity DC vancomycin Increased urine output Strict I&Os Check urine electrolytes CT scan of the abdomen showed no hydronephrosis I agree with diuresis IV antibiotics Insulin sliding scale Packed red blood cell transfusion p.r.n. Cardiology consult GI consult We will continue to follow Plan discussed with: Patient Dietary Evaluation Review Recommendations by RD: Dietary education by RD Comments: 1) Add CCHO 60g restritction to 2g Na diet order. 2) Referral to outpatient RD/[facility] for DM education and weight management. 3) Initiate vitamin C @ 500 mg bid. 4) Initiate zinc sulfate @ 220 mg qd. 5) Continue to monitor labs, appetite, and skin integrity Expected Outcomes/Goals: 1) appetite, labs, and wound to improve 2) f/u in 3-5 days CC Plasma Assessment Blood Product Administration S: [id number] ROSA HINSON MD Apr 16, 2024 11:01
--- NOTE | 2024-04-16 13:46 | DVHPN2 ---
Progress Note - Dictate Date Seen: Apr 16, 2024 Medical Necessity Reason Pt with a Central, PICC or Fol: No Subjective Patient complaining of LE pain with wound changes. vital signs Vital Sign Date Time Temp Pulse Resp B/P (MAP) Pulse Ox O2 Delivery O2 Flow Rate FiO2 04/16/24 13:00 97.9 91 18 123/57 (79) 97 97.9 04/16/24 08:05 Nasal Cannula* 2 28 Total Intake and Output 04/15/24 04/15/24 04/16/24 15:00 23:00 07:00 Intake Total 300 ml 1400 ml 418 ml Output Total 2000 ml 700 ml Balance 300 ml -600 ml -282 ml medications Current Medications Medications Dose Ordered Sig/Kate Route Start Time Stop Time Status Last Admin Dose Admin Nitroglycerin 0.4 mg Q5MINP PRN SL 04/13/24 02:00 Hold Morphine Sulfate 2 mg Q30M PRN IV 04/13/24 02:00 04/13/24 18:45 2 MG Furosemide 40 mg Q8HP IV 04/13/24 06:00 04/15/24 15:09 40 MG Vancomycin HCl 250 ml @ 250 mls/hr DAILY IV 04/14/24 04:00 04/16/24 10:00 250 MLS/HR Acetaminophen 650 mg Q4HP PRN PO 04/13/24 23:45 04/14/24 16:15 650 MG Vancomycin HCl 0 ml @ 0 mls/hr UD IV 04/14/24 12:30 Piperacillin Sod/ Tazobactam Sod 100 ml @ 25 mls/hr Q8HR IV 04/14/24 14:00 04/16/24 05:57 25 MLS/HR Diagnostic Test (Pha) 1 strip ACHS 04/14/24 17:00 04/16/24 11:30 1 STRIP Insulin Human Regular AC SC 04/14/24 17:00 04/16/24 12:00 9 UNITS Dextrose 50 ml UD PRN IV 04/14/24 16:15 Insulin Glargine 20 units HS SC 04/14/24 22:00 04/15/24 21:50 20 UNITS Sildenafil Citrate 20 mg TID@08,14,20 PO 04/14/24 20:00 04/16/24 09:16 20 MG Acetaminophen/ Hydrocodone Bitart 1 tab Q4HPRN PRN PO 04/15/24 11:30 Acetaminophen/ Hydrocodone Bitart 1 tab Q4HP PRN PO 04/15/24 11:30 04/16/24 12:01 1 TAB Morphine Sulfate 2 mg Q4HPRN PRN IV 04/15/24 11:30 Insulin Human Lispro 14 units AC SC 04/15/24 18:45 04/16/24 11:59 14 UNITS objective General appearance: No acute distress Respiratory:Fine bibasilar crackles Cardiovascular: Regular rate and rhythm, no murmurs. No edema Abdomen: Soft, nondistended, nontender, bowel sounds present MSK: Normal range of motion. Neuro: Alert, no neurological deficits Skin: LE cellulitis with ulcerative wounds Psych: Appropriate mood and affect. laboratory and microbiology Laboratory Tests 04/16/24 09:37 Test 04/16/24 09:37 Range/Units Serum Glucose 222 H 74-106 mg/dL Assessment/Plan 1. Acute respiratory failure secondary to pulmonary hypertension 2. Cellulitis of lower extremities 3. Iron Deficiency Anemia 4. BERNADINE 5. Type 2 diabetes 6. Morbid obesity 7. Severe Pulmonary Hypertension Plan: -Cardiology consulted for underlying pulmonary hypertension. Plan for right heart cath on Wednesday. Starting on sildenafil 20mg TID. Patient counseled on meth cessation. -Pulmonary consulted for acute respiratory failure -Continue vancomycin and Zosyn for cellulitis/unstageable wound. Plan to transition to oral regimen on discharge. -Nephrology consulted for BERNADINE -Endocrine consulted for type 2 diabetes uncontrolled. Glargine 20U bedtime, 8 units lispro mealtime with sliding scale -Iron studies consistent with iron deficiency anemia. Started on ferrous sulfate. -General surgery, Dr. Goldstein consulted for wound debridement -PT eval pending -NPO at midnight for right heart cath -Full code Dietary Evaluation Review Recommendations by RD: Dietary education by RD Comments: 1) Add CCHO 60g restritction to 2g Na diet order. 2) Referral to outpatient RD/[facility] for DM education and weight management. 3) Initiate vitamin C @ 500 mg bid. 4) Initiate zinc sulfate @ 220 mg qd. 5) Continue to monitor labs, appetite, and skin integrity Expected Outcomes/Goals: 1) appetite, labs, and wound to improve 2) f/u in 3-5 days Plan discussed with: Patient CC Plasma Assessment Blood Product Administration S: [id number] DEJAN KRAMER DO Apr 16, 2024 13:46
--- NOTE | 2024-04-16 14:04 | DVHPN2 ---
Progress Note - Dictate Date Seen: Apr 16, 2024 Medical Necessity Reason Pt with a Central, PICC or Fol: No Subjective Persistent hyperglycemia both fasting and postprandial. Tolerating PO intake. vital signs Vital Sign Date Time Temp Pulse Resp B/P (MAP) Pulse Ox O2 Delivery O2 Flow Rate FiO2 04/16/24 13:00 97.9 91 18 123/57 (79) 97 97.9 04/16/24 08:05 Nasal Cannula* 2 28 Total Intake and Output 04/15/24 04/15/24 04/16/24 15:00 23:00 07:00 Intake Total 300 ml 1400 ml 418 ml Output Total 2000 ml 700 ml Balance 300 ml -600 ml -282 ml medications Current Medications Medications Dose Ordered Sig/Kate Route Start Time Stop Time Status Last Admin Dose Admin Nitroglycerin 0.4 mg Q5MINP PRN SL 04/13/24 02:00 Hold Morphine Sulfate 2 mg Q30M PRN IV 04/13/24 02:00 04/13/24 18:45 2 MG Furosemide 40 mg Q8HP IV 04/13/24 06:00 04/15/24 15:09 40 MG Vancomycin HCl 250 ml @ 250 mls/hr DAILY IV 04/14/24 04:00 04/16/24 10:00 250 MLS/HR Acetaminophen 650 mg Q4HP PRN PO 04/13/24 23:45 04/14/24 16:15 650 MG Vancomycin HCl 0 ml @ 0 mls/hr UD IV 04/14/24 12:30 Piperacillin Sod/ Tazobactam Sod 100 ml @ 25 mls/hr Q8HR IV 04/14/24 14:00 04/16/24 05:57 25 MLS/HR Diagnostic Test (Pha) 1 strip ACHS 04/14/24 17:00 04/16/24 11:30 1 STRIP Insulin Human Regular AC SC 04/14/24 17:00 04/16/24 12:00 9 UNITS Dextrose 50 ml UD PRN IV 04/14/24 16:15 Sildenafil Citrate 20 mg TID@08,14,20 PO 04/14/24 20:00 04/16/24 09:16 20 MG Acetaminophen/ Hydrocodone Bitart 1 tab Q4HPRN PRN PO 04/15/24 11:30 Acetaminophen/ Hydrocodone Bitart 1 tab Q4HP PRN PO 04/15/24 11:30 04/16/24 12:01 1 TAB Morphine Sulfate 2 mg Q4HPRN PRN IV 04/15/24 11:30 Ferrous Sulfate 325 mg DAILY PO 04/16/24 13:45 Insulin Glargine 24 units HS SC 04/16/24 22:00 UNV Insulin Human Lispro 16 units AC SC 04/16/24 17:00 UNV objective Gen - no acute distress CV - RRR, no m/r/g Resp - CTAB Abd - soft, nontender Psych - alert and oriented laboratory and microbiology Laboratory Tests 04/16/24 09:37 Test 04/16/24 09:37 Range/Units Serum Glucose 222 H 74-106 mg/dL Assessment/Plan # Uncontrolled type II diabetes mellitus with hyperglycemia # Acute respiratory failure secondary to pulmonary hypertension # Cellulitis of lower extremities # Anemia # Acute kidney injury # Class III obesity # Pulmonary hypertension Longstanding history of DM uncontrolled at baseline. Variable BG since admission in the setting of sole regular SSI. Will transition to basal-bolus insulin therapy to maintain BG 140-180mg/dL. - Increase glargine to 24 units daily - Increase lispro to 16 units with meals - POC BG monitoring 4 times daily - Hypoglycemia protocol Dietary Evaluation Review Recommendations by RD: Dietary education by RD Comments: 1) Add CCHO 60g restritction to 2g Na diet order. 2) Referral to outpatient RD/[facility] for DM education and weight management. 3) Initiate vitamin C @ 500 mg bid. 4) Initiate zinc sulfate @ 220 mg qd. 5) Continue to monitor labs, appetite, and skin integrity Expected Outcomes/Goals: 1) appetite, labs, and wound to improve 2) f/u in 3-5 days Plan discussed with: Patient CC Plasma Assessment Blood Product Administration S: [id number] DEVORAH CEVALLOS MD Apr 16, 2024 14:04
--- NOTE | 2024-04-16 16:06 | DVH ---
RIGHT Lower Extremity Arterial Duplex Clinical History: RLE wound. R/O PAD Comparison: US BILAT LOW EXT ART DUPLEX on DOS: 10/20/23 Technique: Duplex Doppler evaluation including color Doppler and spectral/pulsed waveform analysis of the lower extremity arteries was performed. Findings: RIGHT: Peak systolic velocities are as follows: VEGETABLE PREPARER 106 cm/s triphasic waveform Deep femoral 104 cm/s triphasic waveform SFA proximal 153 cm/s triphasic waveform SFA mid-portion 151 cm/s triphasic waveform SFA distal 84 cm/s triphasic waveform Popliteal 80 cm/s triphasic waveform Posterior tibial not visualized cm/s Dorsalis pedis 30 cm/s triphasic waveform The waveforms are triphasic waveform throughout. IMPRESSION: 1. No hemodynamically significant right lower extremity stenosis based on peak systolic velocity damien manzano. REFERENCE VALUES, [facility]) vascular Imaging Lab Criteria: Peak systolic velocity ranges (in cm/sec) are as follows: <150 cm/s - <20 % stenosis 150-200 cm/s - 20-49% stenosis 200-300 cm/s - 50-75% stenosis >300 cm/s -> 75% stenosis
[2024-04-16] MEDS: FERROUS SULFATE 325mg EC TAB PO SCH (16:13)
[2024-04-16] MEDS: INSULIN LISPRO (HUMAN) 100 UNITS/ML ML SC SCH (16:38)
--- NOTE | 2024-04-16 19:54 | DVHINCON2 ---
DATE OF CONSULTATION: 04/16/2024 REFERRING PHYSICIAN: Dr. Brandt. CONSULTING PHYSICIAN: Froylan Goldstein MD REASON FOR CONSULTATION: Right lower extremity wound. HISTORY OF PRESENT ILLNESS: The patient is a 68-year-old female who came to the Emergency Department complaining of shortness of breath for approximately 2 weeks. She stated that she has been dealing with lower extremity cellulitis for approximately a year or slightly less than a year. Approximately a month ago, she hit her right lower extremity against a piece of furniture in her house, causing a wound that has not improved since. She denies fevers, chills, nausea, vomiting, hemoptysis, hematemesis, bilious emesis, chest pain, unintentional weight loss, night sweats, melena or hematochezia. PAST MEDICAL HISTORY: Significant for morbid obesity, diabetes, hypertension, hyperlipidemia, DVT, bilateral lower extremity edema/cellulitis and fibrocystic breast disease. PAST SURGICAL HISTORY: , excision of left breast benign lesion. MEDICATIONS: Metformin, benazepril, gabapentin and insulin. She also is on atorvastatin, aspirin, Lasix and sildenafil. ALLERGIES: No known drug allergies. SOCIAL HISTORY: Denies smoking cigarettes, alcohol use, drug use, marijuana use or vaping. She admitted to methamphetamine inhalation and smoking. She quit approximately 3 months ago. FAMILY HISTORY: Noncontributory. REVIEW OF SYSTEMS: NEUROLOGIC: Negative. PSYCHIATRIC: Negative. ENDOCRINE: Negative. ENT: Negative. CARDIOVASCULAR: Negative. PULMONARY: As above. GASTROINTESTINAL: Negative. GENITOURINARY: Negative HEMATOLOGIC/INFECTIOUS DISEASE: Negative. LYMPHATICS: Negative. MUSCULOSKELETAL: Negative. SKIN: As above. PHYSICAL EXAMINATION: GENERAL: She is lying comfortably in bed, calm, pleasant and in no distress. She is afebrile with stable vital signs. NEUROLOGIC: Grossly intact, alert, awake and oriented x3. HEAD, EYES, EARS, NOSE, AND THROAT: Normocephalic. Pupils equally round. Extraocular muscles intact. Trachea is midline. HEART: Normal heart rate and normotensive. LUNGS: Effortless breathing. Normal oxygen saturation and respiratory rate. ABDOMEN: Soft, obese, nondistended, nontender. EXTREMITIES: Mild bilateral lower extremity edema, delayed capillary refills particularly on the right side, small pinpoint wound in the left lower extremity, large anterior tibial wound/eschar, unable to feel any pulses, secondary to edema or morbid obesity versus peripheral vascular disease. LABORATORY DATA: Review of her labs demonstrated white blood cell count 11, hemoglobin 8.9, hematocrit 27.9 and normal platelets. Sodium 135, potassium 3.7, chloride 99, CO2 of 27, BUN 26, creatinine 1.41, glucose 222. INR 1.21, PT 12, PTT 29. Hepatitis B and C pending. Influenza negative. COVID/SARS negative. The patient has had a CT scan of the abdomen and pelvis done during her admission to the Emergency Department. Uncertain condition for CT as above. The patient denies any abdominal surgeries. There is evidence of pericardial effusion as well as bilateral pleural effusions, possible incisional/periumbilical hernia. Significant anasarca. No other significant findings other than cholelithiasis and nonobstructing right nephrolithiasis. ASSESSMENT: A 68-year-old female with right lower extremity wound, possible peripheral arterial disease given history and physical examination. PLANS AND RECOMMENDATIONS: I had a lengthy discussion with the patient. I have recommended a right lower extremity arterial duplex to assess circulation before contemplating any surgical intervention. Debridement is indicated. However, must ensure that patient has adequate perfusion to lower extremity, otherwise proceeding with any intervention will be detrimental to the patient's current condition of overall health. Continue antibiotic therapy, DVT and GI prophylaxis. Reportedly, the patient undergoing angiogram by plc controls engineer tomorrow. We will wait for results. Thank you, Dr. Brandt for allowing me to participate in the care of your patient. I will follow her periodically with you. MD VAISHALI Gregory/DARRELL/CATHIE TID: [id number] RECEIPT: [id number]
[2024-04-16] MEDS: INSULIN LANTUS (GLARGINE) 1 /0.01ml (100units/ml) SC SCH (22:00)
[2024-04-17] VITALS (11 sets, daily range): BP systolic 113–159; BP diastolic 59–93; PULSE 78–96; RESP 14–19; TEMP 97.8–98.9; O2SAT 90–97
[2024-04-17 06:50] LABS: Basophils # (auto) 0.1 10 ^3/uL (0-0.2); Basophils % (auto) 1.3 % (0.0-2.0); Eosinophils # (auto) 0.2 10 ^3/uL (0-0.8); Eosinophils % (auto) 1.7 % (0.0-7.0); Hematocrit 26.5 % (36.0-46.0); Hemoglobin 8.7 g/dL (12.2-16.2); Lymphocytes % (auto) 10.9 % (10.0-50.0); Mean Corpuscular Hgb Conc. 32.7 g/dL (32.0-36.0); Mean Corpuscular Volume 82.6 fL (80.0-100.0); Monocytes % (auto) 10.8 % (0.0-12.0); Neutrophils # (auto) 7.1 10 ^3/uL (1.6-8.6); Neutrophils % (auto) 75.3 % (37.0-80.0); Nucleated Red Blood Cells % 0.6 %; Platelet Count (auto) 370 10^3/uL (140-450); Red Blood Cells 3.21 10^6/uL (4.0-5.20); Red Cell Distribution Width 19.2 % (11.8-14.3); White Blood Cell 9.4 10^3/uL (4.4-10.8)
[2024-04-17 06:59] LABS: Alanine Aminotransferase 16 U/L (7-40); Albumin 3.6 g/dL (3.2-4.8); Anion Gap 9 (5-15); Aspartate Aminotransferase 21 U/L (13-40); BUN/Creatinine Ratio 32.8 (10.0-20.0); Calcium 8.8 mg/dL (8.7-10.4); Carbon Dioxide 26 mmol/L (20-31); Chloride 101 mmol/L (98-107); Sodium 136 mmol/L (136-145)
[2024-04-17 07:00] LABS: Bilirubin, Total 0.6 mg/dL (0.2-1.0); Total Protein 6.1 g/dL (5.7-8.2)
[2024-04-17 07:05] LABS: Alkaline Phosphatase 216 U/L (46-116); Blood Urea Nitrogen 43 mg/dL (9-23); Glucose 138 mg/dL (74-106); Potassium 3.4 mmol/L (3.5-5.1)
[2024-04-17] MEDS: IODIXANOL 320MG/ML 100ML BTL IV ONE (07:37)
[2024-04-17] MEDS: ANGIOMAX 250 MG VIAL IV ONE (08:22)
[2024-04-17] MEDS: HEPARIN SODIUM (PORCINE) 5000 UNITS/ML 1ML VIAL ONE (08:22)
[2024-04-17] MEDS: fentaNYL CITRATE 100 MCG/2 ML VL ONE (08:23)
[2024-04-17] MEDS: MIDAZOLAM HCL 2MG/2ML 2ml VIAL (1mg/ml) ONE (08:23)
[2024-04-17] MEDS: VERAPAMIL 2.5MG/ML INJ 2ML VIAL IV ONE (08:23)
[2024-04-17] MEDS: SODIUM CHL 0.9% 0 ML ONE (08:24)
[2024-04-17] MEDS: LIDOCAINE 2%HCL (LOCAL ANESTH.) INJ 20ML MDV ONE (08:24)
[2024-04-17 09:02] LABS: Hepatitis B Surface Antigen Negative (Negative)
--- NOTE | 2024-04-17 09:16 | DVHOP2 ---
Operative Report - 2 Report Details Date: 04/17/24 Preop Diagnosis: Pulmonary hypertension Postop Diagnosis: Severe pulmonary hypertension Surgeon: Surekha Zhao MD Anesthesiologist: Conscious sedation Anesthesia: Mac, Local Consent: The patient was informed of the risks and benefits of the procedure. These include but are not limited to complications of anesthesia, postoperative infection, incomplete relief of symptoms, recurrence of symptoms, damage to blood vessels, nerves and tendons, deep venous thrombosis, pulmonary embolism and possible need for repeat surgery in the future. Complications: No complications Estimated Blood Loss: 5 cc Findings: Severe pulmonary hypertension Indications for Surgery: Shortness of breath pulmonary hypertension Name of Procedure Performed Right and left heart catheterization bilateral cine coronary angiography and left ventriculography. Procedure Details Procedure Details: Prior local anesthesia with 2% lidocaine to the right wrist and full informed consent obtained patient was prepped and draped in usual fashion followed by placement of a six Nepali sheath into the radial artery through which a Librado catheter was used for ventriculography and cannulation of both are and left coronary ostia without complications. A six Nepali sheath was advanced into the femoral vein under fluoroscopic in ultrasound guidance. We placed a Rosebud-Rosalva catheter into the right atrium right ventricle pulmonary artery capillary wedge pressure positions where pressures were obtained and recorded without complications. Cardiac output was determined by the thermodilution technique in triplicate. Hemodynamics aortic blood pressure was 119 over 80 with a mean of 82. Right ventricular pressure was 73/18. Right atrial pressure was 18. Pulmonary artery pressure was 81/34 with a mean of 52. Cardiac output by the thermodilution technique in triplicate was 3.07 liters/minute. Capillary wedge pressure was approximately fifteen. Left ventricular pressure was 14-19. Coronary anatomy: RCA is a large vessel it is normal in its proximal mid distal segments. It is dominant. The PDA and posterolateral branches are normal. The left main is large and normal. Left anterior descending is a large vessel in his normal in its proximal mid and distal segments. Diagonals and septals are normal. Circumflex is a large vessel two marginals free of significant disease. Ventriculography in the MARQUES projection shows an EF of 65%. Impression: significant pulmonary hypertension. With normal left ventricular end-diastolic pressure at rest with a normal wedge pressure. Normal coronaries. Normal left ventricular function. Recommendations: Initiate treatment for pulmonary hypertension. Continue janina denafil. Outpatient follow up within the next 2-3 weeks. Condition Fair Disposition Still a Patient Date of Service: Apr 17, 2024 Billing Provider: SUREKHA ZHAO Sr., MD Cardiology Common Codes: 60195-DLGGHFV INP/OBS CARE (High) Cardiology Procedure Codes: 08341-W/R & L HEART CATH FOR LVG SUREKHA ZHAO Sr., MD Apr 17, 2024 09:16
[2024-04-17 09:23] LABS: Hepatitis C Antibody Negative (Negative)
--- NOTE | 2024-04-17 10:14 | DVHPN2 ---
Progress Note Date Seen: Apr 17, 2024 Medical Necessity Reason Pt with a Central, PICC or Fol: Yes The following are medically ne: Wood Catheter Subjective Review of Systems: RESPIRATORY:Abnormal, GI:Abnormal Objective vital signs Vital Sign Date Time Temp Pulse Resp B/P (MAP) Pulse Ox O2 Delivery O2 Flow Rate FiO2 04/17/24 09:09 98.5 91 18 135/66 (89) 95 98.5 04/16/24 19:30 Nasal Cannula* 2 28 Total Intake and Output 04/16/24 04/16/24 04/17/24 15:00 23:00 07:00 Intake Total 350 ml 525 ml 0 ml Output Total 800 ml 1600 ml Balance 350 ml -275 ml -1600 ml medications Current Medications Medications Dose Ordered Sig/Kate Route Start Time Stop Time Status Last Admin Dose Admin Nitroglycerin 0.4 mg Q5MINP PRN SL 04/13/24 02:00 Hold Morphine Sulfate 2 mg Q30M PRN IV 04/13/24 02:00 04/13/24 18:45 2 MG Furosemide 40 mg Q8HP IV 04/13/24 06:00 04/17/24 05:55 40 MG Vancomycin HCl 250 ml @ 250 mls/hr DAILY IV 04/14/24 04:00 04/16/24 10:00 250 MLS/HR Acetaminophen 650 mg Q4HP PRN PO 04/13/24 23:45 04/14/24 16:15 650 MG Vancomycin HCl 0 ml @ 0 mls/hr UD IV 04/14/24 12:30 Piperacillin Sod/ Tazobactam Sod 100 ml @ 25 mls/hr Q8HR IV 04/14/24 14:00 04/17/24 05:55 25 MLS/HR Diagnostic Test (Pha) 1 strip ACHS 04/14/24 17:00 04/17/24 06:15 1 STRIP Dextrose 50 ml UD PRN IV 04/14/24 16:15 Sildenafil Citrate 20 mg TID@08,14,20 PO 04/14/24 20:00 04/16/24 16:13 20 MG Acetaminophen/ Hydrocodone Bitart 1 tab Q4HPRN PRN PO 04/15/24 11:30 Acetaminophen/ Hydrocodone Bitart 1 tab Q4HP PRN PO 04/15/24 11:30 04/16/24 12:01 1 TAB Morphine Sulfate 2 mg Q4HPRN PRN IV 04/15/24 11:30 Ferrous Sulfate 325 mg DAILY PO 04/16/24 13:45 04/16/24 16:13 325 MG Insulin Glargine 24 units HS SC 04/16/24 22:00 Insulin Human Lispro 16 units AC SC 04/16/24 17:00 04/17/24 06:10 16 UNITS Examination: GENERAL:Abnormal, LUNGS:Abnormal laboratory and microbiology Laboratory Tests 04/17/24 05:14 Test 04/17/24 05:14 Range/Units Serum Glucose 138 H 74-106 mg/dL Microbiology Date/Time Source Procedure Growth Status 04/13/24 01:15 Blood Blood Culture - Preliminary NO GROWTH AFTER 72 HOURS OF INCUBATION. Resulted Problem List/Assessment/Plan Problem List/Assessment/Plan Acute kidney injury superimposed Chronic Kidney Disease secondary hemodynamic mediated, ATN, feNa > 2% Precipitous drop in hemoglobin GI bleeding Uncontrolled diabetes mellitus Hyperglycemia Acute on Chronic diastolic Congestive heart failure Sepsis Nonobstructing right kidney stones Right lower extremity cellulitis Kidney function slightly worsened today, vancomycin level elevated yesterday. obtain level today to ensure stable trend Increased urine output, has wood Strict I&Os CT scan of the abdomen showed no hydronephrosis I agree with diuresis IV antibiotics Insulin sliding scale IV iron Cardiology consult GI consult Plan discussed with: Patient Dietary Evaluation Review Recommendations by RD: Dietary education by RD Comments: 1) Add CCHO 60g restritction to 2g Na diet order. 2) Referral to outpatient RD/[facility] for DM education and weight management. 3) Initiate vitamin C @ 500 mg bid. 4) Initiate zinc sulfate @ 220 mg qd. 5) Continue to monitor labs, appetite, and skin integrity Expected Outcomes/Goals: 1) appetite, labs, and wound to improve 2) f/u in 3-5 days CC Plasma Assessment Blood Product Administration S: [id number] SERGEY DAMIAN MD Apr 17, 2024 10:14
--- NOTE | 2024-04-17 11:58 | DVHPN2 ---
Progress Note - Dictate Date Seen: Apr 17, 2024 Medical Necessity Reason Pt with a Central, PICC or Fol: Yes The following are medically ne: Win Catheter Subjective Patient to have right heart cath today. vital signs Vital Sign Date Time Temp Pulse Resp B/P (MAP) Pulse Ox O2 Delivery O2 Flow Rate FiO2 04/17/24 10:16 82 14 123/84 (97) 96 04/17/24 09:16 97.8 97.8 04/16/24 19:30 Nasal Cannula* 2 28 Total Intake and Output 04/16/24 04/16/24 04/17/24 15:00 23:00 07:00 Intake Total 350 ml 525 ml 0 ml Output Total 800 ml 1600 ml Balance 350 ml -275 ml -1600 ml medications Current Medications Medications Dose Ordered Sig/Kate Route Start Time Stop Time Status Last Admin Dose Admin Nitroglycerin 0.4 mg Q5MINP PRN SL 04/13/24 02:00 Hold Morphine Sulfate 2 mg Q30M PRN IV 04/13/24 02:00 04/13/24 18:45 2 MG Furosemide 40 mg Q8HP IV 04/13/24 06:00 04/17/24 05:55 40 MG Vancomycin HCl 250 ml @ 250 mls/hr DAILY IV 04/14/24 04:00 04/16/24 10:00 250 MLS/HR Acetaminophen 650 mg Q4HP PRN PO 04/13/24 23:45 04/14/24 16:15 650 MG Vancomycin HCl 0 ml @ 0 mls/hr UD IV 04/14/24 12:30 Piperacillin Sod/ Tazobactam Sod 100 ml @ 25 mls/hr Q8HR IV 04/14/24 14:00 04/17/24 05:55 25 MLS/HR Diagnostic Test (Pha) 1 strip ACHS 04/14/24 17:00 04/17/24 11:12 1 STRIP Dextrose 50 ml UD PRN IV 04/14/24 16:15 Sildenafil Citrate 20 mg TID@08,14,20 PO 04/14/24 20:00 04/16/24 16:13 20 MG Acetaminophen/ Hydrocodone Bitart 1 tab Q4HPRN PRN PO 04/15/24 11:30 Acetaminophen/ Hydrocodone Bitart 1 tab Q4HP PRN PO 04/15/24 11:30 04/17/24 11:50 1 TAB Morphine Sulfate 2 mg Q4HPRN PRN IV 04/15/24 11:30 Ferrous Sulfate 325 mg DAILY PO 04/16/24 13:45 04/17/24 11:19 325 MG Insulin Glargine 24 units HS SC 04/16/24 22:00 Insulin Human Lispro 16 units AC SC 04/16/24 17:00 04/17/24 06:10 16 UNITS Iron Sucrose 110 ml @ 110 mls/hr DAILY@1200 IV 04/17/24 12:00 04/21/24 12:59 objective General appearance: No acute distress laboratory and microbiology Laboratory Tests 04/17/24 05:14 Test 04/17/24 05:14 Range/Units Serum Glucose 138 H 74-106 mg/dL Assessment/Plan 1. Acute respiratory failure secondary to pulmonary hypertension 2. Cellulitis of lower extremities 3. Iron Deficiency Anemia 4. BERNADINE 5. Type 2 diabetes 6. Morbid obesity 7. Severe Pulmonary Hypertension Plan: -Cardiology consulted for underlying pulmonary hypertension. Starting on sildenafil 20mg TID. Patient counseled on meth cessation. Patient completed right heart cath. -Pulmonary consulted for acute respiratory failure -Continue vancomycin and Zosyn for cellulitis/unstageable wound. Plan to transition to oral regimen on discharge. -Nephrology consulted for BERNADINE -Endocrine consulted for type 2 diabetes uncontrolled. Glargine and mealtime insulin as per MAY. -Iron studies consistent with iron deficiency anemia. Started on ferrous sulfate. -General surgery, Dr. Goldstein consulted for wound debridement. US LE arterial does not reveal any significant stenosis. -PT eval pending -NPO midnight for debridement -Full code Dietary Evaluation Review Recommendations by RD: Dietary education by RD Comments: 1) Add CCHO 60g restritction to 2g Na diet order. 2) Referral to outpatient RD/[facility] for DM education and weight management. 3) Initiate vitamin C @ 500 mg bid. 4) Initiate zinc sulfate @ 220 mg qd. 5) Continue to monitor labs, appetite, and skin integrity Expected Outcomes/Goals: 1) appetite, labs, and wound to improve 2) f/u in 3-5 days Plan discussed with: Patient, Other CC Plasma Assessment Blood Product Administration S: [id number] DEJAN KRAMER DO Apr 17, 2024 11:58
[2024-04-17] MEDS: IRON SUCROSE COMPLEX 110 ML IV SCH (14:40)
[2024-04-17] MEDS: ERTAPENEM SOD INJ 1 GM in SODIUM CHL 0.9% 50 ML IV SCH (18:05)
[2024-04-18] VITALS (7 sets, daily range): BP systolic 101–133; BP diastolic 38–70; PULSE 61–89; RESP 16–19; TEMP 97.8–98.3; O2SAT 91–97
[2024-04-18 06:38] LABS: Basophils # (auto) 0.1 10 ^3/uL (0-0.2); Basophils % (auto) 1.4 % (0.0-2.0); Eosinophils # (auto) 0.2 10 ^3/uL (0-0.8)
[2024-04-18 06:41] LABS: Hematocrit 25.9 % (36.0-46.0); Hemoglobin 8.4 g/dL (12.2-16.2); Lymphocytes % (auto) 9.9 % (10.0-50.0); Mean Corpuscular Hemoglobin 26.6 pg (28.0-32.0); Mean Corpuscular Hgb Conc. 32.5 g/dL (32.0-36.0); Mean Corpuscular Volume 81.8 fL (80.0-100.0); Monocytes % (auto) 9.9 % (0.0-12.0); Neutrophils % (auto) 76.8 % (37.0-80.0); Nucleated Red Blood Cells % 0.4 %; Platelet Count (auto) 350 10^3/uL (140-450); Red Blood Cells 3.17 10^6/uL (4.0-5.20); Red Cell Distribution Width 19.6 % (11.8-14.3); White Blood Cell 10.4 10^3/uL (4.4-10.8)
[2024-04-18 07:07] LABS: Alanine Aminotransferase 16 U/L (7-40); Anion Gap 8 (5-15); BUN/Creatinine Ratio 38.1 (10.0-20.0); Calcium 9.4 mg/dL (8.7-10.4); Carbon Dioxide 27 mmol/L (20-31); Chloride 101 mmol/L (98-107); Potassium 3.6 mmol/L (3.5-5.1); Sodium 136 mmol/L (136-145)
[2024-04-18 07:08] LABS: Albumin 3.5 g/dL (3.2-4.8); Aspartate Aminotransferase 22 U/L (13-40); Bilirubin, Total 0.5 mg/dL (0.2-1.0); Total Protein 6.1 g/dL (5.7-8.2)
[2024-04-18 07:10] LABS: % Iron Saturation 61.2 % (15-50)
[2024-04-18 07:12] LABS: Alkaline Phosphatase 230 U/L (46-116); Blood Urea Nitrogen 43 mg/dL (9-23); Glucose 181 mg/dL (74-106)
[2024-04-18] MEDS: FUROSEMIDE 40 MG TAB PO SCH (09:11)
--- NOTE | 2024-04-18 10:11 | DVHPN2 ---
Progress Note Date Seen: Apr 18, 2024 Medical Necessity Reason Pt with a Central, PICC or Fol: Yes The following are medically ne: Wood Catheter Subjective Patient reports: No new complaints Objective vital signs Vital Sign Date Time Temp Pulse Resp B/P (MAP) Pulse Ox O2 Delivery O2 Flow Rate FiO2 04/18/24 09:11 111/53 04/18/24 08:00 Nasal Cannula* 2 04/18/24 05:00 98.3 66 16 96 98.3 Total Intake and Output 04/17/24 04/17/24 04/18/24 15:00 23:00 07:00 Intake Total 100 ml 685 ml 480 ml Output Total 800 ml 1300 ml Balance 100 ml -115 ml -820 ml medications Current Medications Medications Dose Ordered Sig/Kate Route Start Time Stop Time Status Last Admin Dose Admin Nitroglycerin 0.4 mg Q5MINP PRN SL 04/13/24 02:00 Hold Morphine Sulfate 2 mg Q30M PRN IV 04/13/24 02:00 04/13/24 18:45 2 MG Acetaminophen 650 mg Q4HP PRN PO 04/13/24 23:45 04/14/24 16:15 650 MG Diagnostic Test (Pha) 1 strip ACHS 04/14/24 17:00 04/18/24 06:31 1 STRIP Dextrose 50 ml UD PRN IV 04/14/24 16:15 Sildenafil Citrate 20 mg TID@08,14,20 PO 04/14/24 20:00 04/18/24 09:11 20 MG Acetaminophen/ Hydrocodone Bitart 1 tab Q4HPRN PRN PO 04/15/24 11:30 Acetaminophen/ Hydrocodone Bitart 1 tab Q4HP PRN PO 04/15/24 11:30 04/17/24 22:13 1 TAB Morphine Sulfate 2 mg Q4HPRN PRN IV 04/15/24 11:30 Ferrous Sulfate 325 mg DAILY PO 04/16/24 13:45 04/18/24 09:11 325 MG Insulin Glargine 24 units HS SC 04/16/24 22:00 04/17/24 22:21 24 UNITS Insulin Human Lispro 16 units AC SC 04/16/24 17:00 04/18/24 06:31 16 UNITS Iron Sucrose 110 ml @ 110 mls/hr DAILY@1200 IV 04/17/24 12:00 04/21/24 12:59 04/17/24 14:40 110 MLS/HR Ertapenem 1 gm/ Sodium Chloride 50 ml @ 100 mls/hr DAILY IV 04/17/24 17:00 04/17/24 18:05 100 MLS/HR Furosemide 40 mg DAILY PO 04/18/24 10:00 04/18/24 09:11 40 MG Examination: GENERAL:Normal, NECK:Normal, CVS:Normal laboratory and microbiology Laboratory Tests 04/18/24 05:43 Test 04/18/24 05:43 Range/Units Serum Glucose 181 H 74-106 mg/dL Microbiology Date/Time Source Procedure Growth Status 04/17/24 04:00 Leg Right Gram Stain - Final Resulted 04/17/24 04:00 Leg Right Wound Culture Pending Resulted 04/13/24 01:15 Blood Blood Culture - Final NO GROWTH AFTER 5 DAYS OF INCUBATION. Complete Problem List/Assessment/Plan Problem List/Assessment/Plan Acute kidney injury superimposed Chronic Kidney Disease secondary hemodynamic mediated, ATN, feNa > 2% Precipitous drop in hemoglobin GI bleeding Uncontrolled diabetes mellitus Hyperglycemia Acute on Chronic diastolic Congestive heart failure Sepsis Nonobstructing right kidney stones Right lower extremity cellulitis Increased urine output, has wood vanco level 19, rec hold dose renal function improved Strict I&Os CT scan of the abdomen showed no hydronephrosis I agree with diuresis IV antibiotics Insulin sliding scale IV iron Cardiology consult GI consult Plan discussed with: Patient My Orders My Orders Orders - SERGEY DAMIAN MD Procedure Category Date Status Time Iron Sucrose Complex PHA 04/17/24 In Process (Venofer) 12:00 Dietary Evaluation Review Recommendations by RD: Dietary education by RD Comments: 1) Add CCHO 60g restritction to 2g Na diet order. 2) Referral to outpatient RD/[facility] for DM education and weight management. 3) Initiate vitamin C @ 500 mg bid. 4) Initiate zinc sulfate @ 220 mg qd. 5) Continue to monitor labs, appetite, and skin integrity Expected Outcomes/Goals: 1) appetite, labs, and wound to improve 2) f/u in 3-5 days CC Plasma Assessment Blood Product Administration S: [id number] SERGEY DAMIAN MD Apr 18, 2024 10:11
--- NOTE | 2024-04-18 11:22 | DVHPN2 ---
Progress Note - Dictate Date Seen: Apr 18, 2024 Medical Necessity Reason Pt with a Central, PICC or Fol: Yes The following are medically ne: Win Catheter Subjective 16U inappropriately given for breakfast yesterday AM when patient actually NPO. Caused BG to drop from 148 to 59. Got lunch after procedure without coverage causing BG to increase from 89 to 314. Now appropriate fasting this AM. vital signs Vital Sign Date Time Temp Pulse Resp B/P (MAP) Pulse Ox O2 Delivery O2 Flow Rate FiO2 04/18/24 09:11 111/53 04/18/24 09:01 98.1 78 18 96 98.1 04/18/24 08:00 Nasal Cannula* 2 28 Total Intake and Output 04/17/24 04/17/24 04/18/24 15:00 23:00 07:00 Intake Total 100 ml 685 ml 480 ml Output Total 800 ml 1300 ml Balance 100 ml -115 ml -820 ml medications Current Medications Medications Dose Ordered Sig/Kate Route Start Time Stop Time Status Last Admin Dose Admin Nitroglycerin 0.4 mg Q5MINP PRN SL 04/13/24 02:00 Hold Morphine Sulfate 2 mg Q30M PRN IV 04/13/24 02:00 04/13/24 18:45 2 MG Acetaminophen 650 mg Q4HP PRN PO 04/13/24 23:45 04/14/24 16:15 650 MG Diagnostic Test (Pha) 1 strip ACHS 04/14/24 17:00 04/18/24 06:31 1 STRIP Dextrose 50 ml UD PRN IV 04/14/24 16:15 Sildenafil Citrate 20 mg TID@08,14,20 PO 04/14/24 20:00 04/18/24 09:11 20 MG Acetaminophen/ Hydrocodone Bitart 1 tab Q4HPRN PRN PO 04/15/24 11:30 Acetaminophen/ Hydrocodone Bitart 1 tab Q4HP PRN PO 04/15/24 11:30 04/17/24 22:13 1 TAB Morphine Sulfate 2 mg Q4HPRN PRN IV 04/15/24 11:30 Ferrous Sulfate 325 mg DAILY PO 04/16/24 13:45 04/18/24 09:11 325 MG Insulin Glargine 24 units HS SC 04/16/24 22:00 04/17/24 22:21 24 UNITS Insulin Human Lispro 16 units AC SC 04/16/24 17:00 04/18/24 06:31 16 UNITS Iron Sucrose 110 ml @ 110 mls/hr DAILY@1200 IV 04/17/24 12:00 04/21/24 12:59 04/17/24 14:40 110 MLS/HR Ertapenem 1 gm/ Sodium Chloride 50 ml @ 100 mls/hr DAILY IV 04/17/24 17:00 04/18/24 10:44 100 MLS/HR Furosemide 40 mg DAILY PO 04/18/24 10:00 04/18/24 09:11 40 MG Atorvastatin Calcium 40 mg HS PO 04/18/24 22:00 objective Gen - no acute distress CV - RRR, no m/r/g Resp - CTAB Abd - soft, nontender Psych - alert and oriented laboratory and microbiology Laboratory Tests 04/18/24 05:43 Test 04/18/24 05:43 Range/Units Serum Glucose 181 H 74-106 mg/dL Assessment/Plan # Uncontrolled type II diabetes mellitus with hyperglycemia # Acute respiratory failure secondary to pulmonary hypertension # Cellulitis of lower extremities # Anemia # Acute kidney injury # Class III obesity # Pulmonary hypertension Longstanding history of DM uncontrolled at baseline. Variable BG since admission in the setting of sole regular SSI. Will transition to basal-bolus insulin therapy to maintain BG 140-180mg/dL. - Continue glargine to 24 units daily - Continue lispro to 16 units with meals. If concerned about low BG prior to meal: CALL PROVIDER FIRST, DO NOT EMPIRICALLY HOLD INSULIN. - POC BG monitoring 4 times daily - Hypoglycemia protocol Dietary Evaluation Review Recommendations by RD: Dietary education by RD Comments: 1) Add CCHO 60g restritction to 2g Na diet order. 2) Referral to outpatient RD/[facility] for DM education and weight management. 3) Initiate vitamin C @ 500 mg bid. 4) Initiate zinc sulfate @ 220 mg qd. 5) Continue to monitor labs, appetite, and skin integrity Expected Outcomes/Goals: 1) appetite, labs, and wound to improve 2) f/u in 3-5 days Plan discussed with: Patient CC Plasma Assessment Blood Product Administration S: [id number] DEVORAH CEVALLOS MD Apr 18, 2024 11:22
--- NOTE | 2024-04-18 11:58 | DVHDS2 ---
Discharge Summary Date of Admission Apr 13, 2024 at 01:50 Date of Discharge: Apr 18, 2024 Labs/Diagnostic Data: Laboratory Results Test 04/18/24 11:22 04/18/24 05:43 04/17/24 11:15 04/16/24 09:37 POC Glucose 142 mg/dl (70-106) White Blood Count 10.4 10^3/uL (4.4-10.8) Red Blood Count 3.17 10^6/uL (4.0-5.20) Hemoglobin 8.4 g/dL (12.2-16.2) Hematocrit 25.9 % (36.0-46.0) Mean Corpuscular Volume 81.8 fL (80.0-100.0) Mean Corpuscular Hemoglobin 26.6 pg (28.0-32.0) Mean Corpuscular Hemoglobin Concent 32.5 g/dL (32.0-36.0) Red Cell Distribution Width 19.6 % (11.8-14.3) Platelet Count 350 10^3/uL (140-450) Mean Platelet Volume 7.4 fL (6.9-10.8) Neutrophils (%) (Auto) 76.8 % (37.0-80.0) Lymphocytes (%) (Auto) 9.9 % (10.0-50.0) Monocytes (%) (Auto) 9.9 % (0.0-12.0) Eosinophils (%) (Auto) 2.0 % (0.0-7.0) Basophils (%) (Auto) 1.4 % (0.0-2.0) Neutrophils # (Auto) 8.0 10 ^3/uL (1.6-8.6) Lymphocytes # (Auto) 1.0 10 ^3/uL (0.4-5.4) Monocytes # (Auto) 1.0 10 ^3/uL (0-1.3) Eosinophils # (Auto) 0.2 10 ^3/uL (0-0.8) Basophils # (Auto) 0.1 10 ^3/uL (0-0.2) Nucleated Red Blood Cells 0.4 % Sodium Level 136 mmol/L (136-145) Potassium Level 3.6 mmol/L (3.5-5.1) Chloride Level 101 mmol/L (98-107) Carbon Dioxide Level 27 mmol/L (20-31) Anion Gap 8 (5-15) Blood Urea Nitrogen 43 mg/dL (9-23) Creatinine 1.13 mg/dL (0.550-1.02) Glomerular Filtration Rate Calc 53 mL/min (>90) BUN/Creatinine Ratio 38.1 (10.0-20.0) Serum Glucose 181 mg/dL (74-106) Calcium Level 9.4 mg/dL (8.7-10.4) Iron Level 222 ug/dL (50-170) Total Iron Binding Capacity 363 ug/dL (250-425) Percent Iron Saturation 61.2 % (15-50) Ferritin 68.4 ng/mL (10-291) Total Bilirubin 0.5 mg/dL (0.2-1.0) Aspartate Amino Transferase (AST) 22 U/L (13-40) Alanine Aminotransferase (ALT) 16 U/L (7-40) Alkaline Phosphatase 230 U/L (46-116) Total Protein 6.1 g/dL (5.7-8.2) Albumin 3.5 g/dL (3.2-4.8) Random Vancomycin Level 19.6 ug/mL (5-10) Vancomycin Level Trough 18.2 ug/mL (5-10) Test 04/15/24 11:58 04/15/24 05:38 04/14/24 14:15 04/14/24 05:18 Urine Color Light-yellow (Yellow) Urine Clarity Clear (Clear) Urine pH 5.5 (5.0-9.0) Urine Specific Potter 1.015 (1.001-1.035) Urine Protein Negative (Negative) Urine Ketones Negative (Negative) Urine Blood Negative /uL (Negative) Urine Nitrite Negative (Negative) Urine Bilirubin Negative (Negative) Urine Urobilinogen Normal mg/dL (Negative) Urine Leukocyte Esterase Negative /uL (Negative) Urine RBC 3 /hpf (0 - 4) Urine Microscopic WBC 3 /HPF (0-5) Urine Squamous Epithelial Cells Few /hpf (<5) Urine Bacteria None seen /hpf (None Seen) Urine Creatinine 34.04 mg/dL (30.0-125.0) Urine Protein/Creatinine Ratio 0.44 Urine Sodium 45 mmol/L (40-220) Urine Glucose Normal mg/dL (Normal) Urine Total Protein 14.9 mg/dL (1-14) Influenza Type A Antigen Negative (Negative) Influenza Type B Antigen Negative (Negative) SARS-CoV-2 Antigen (Rapid) Negative (NEGATIVE) Prothrombin Time 12.6 sec (9.3-11.8) Prothrombin Time INR 1.21 (0.9-1.15) Activated Partial Thromboplast Time 29.3 SEC (24.5-34.5) Hemoglobin A1c 9.4 % A1C (<5.7) Phosphorus Level 4.7 mg/dL (2.4-5.1) Magnesium Level 1.5 mg/dL (1.6-2.6) Vitamin D 25-Hydroxy 46.1 ng/mL (30.0-100) Parathyroid Hormone (Intact) 99.2 pg/mL (18.4-80.1) Hepatitis B Surface Antigen Negative (Negative) Hepatitis C Antibody Negative (Negative) Test 04/13/24 08:00 04/12/24 23:23 04/12/24 22:14 Lactic Acid Level 2.6 mmol/L (0.4-2.0) Troponin I High Sensitivity 27 ng/L (</=34) B-Type Natriuretic Peptide 918.45 pg/mL (0-100) Other Laboratory Tests 04/18/24 05:43 Brief Hx & Hospital Course: Patient is a 68-year-old female with a past medical history of pulmonary hypertension, methamphetamine abuse, type 2 diabetes, morbid obesity who presents with complaints of shortness of breath, lower extremity edema and generalized weakness. Patient presented to the ER with glucose notable for 500 with hemoglobin 6.1 patient was transfused with PRBC. No signs of gross GI bleeding were noted. Iron panel was consistent with iron deficiency anemia. Patient was evaluated by cardiology. TTE showed normal LVEF of 65% with severe pulmonary hypertension with PA systolic pressures ranging from 95 to 105 mmHg. There is also moderate to severe central tricuspid regurgitation. Patient was diuresed with Lasix and started on sildenafil. She underwent right heart cath which confirmed pulmonary hypertension. Etiology was attributed to history of methamphetamine abuse. Patient stated that she quit approximate 3 months ago. Endocrinology was consulted for hyperglycemia. Hemoglobin A1c was noted to be 9.4. Patient was started on aggressive regimen of Lantus and mealtime insulin. She was discharged on a regimen of Lantus 24 units q. bedtime with 16 units 3 times daily AC of lispro. Patient was treated with vancomycin and Zosyn for lower extremity ulcerative wounds. Blood cultures did not reveal any growth. Patient was transitioned to ertapenem 1 g daily with midline placed for duration of antibiotics of 2 additional weeks and then transition to oral regimen. General surgery was consulted for wound debridement. It was planned to have wound debridement done outpatient with improvement in glucose levels and treat with IV antibiotics. Patient was discharged on Lasix 40 mg p.o. daily. Nephrology was consulted to see the patient for BERNADINE. Her renal function was noted be BUN/creatinine of 43/1.13 prior to discharge. Her BERNADINE is attributed to aggressive diuresis. Overall, patient was discharged on 2 L nasal cannula with out signs of tachypnea on discharge. Patient was discharged in stable condition. [facility] case management arrange follow-up appointments. Condition at Discharge: Fair Final Diagnosis/Problems List Severe pulmonary hypertension Secondary Diagnosis: Acute Respiratory Failure Type 2 Diabetes Morbid Obesity BERNADINE due to VMN Diabetic Wound of LE Discharge Disposition: Senior Living Facility Discharge Instruct/Medications Diet: Cardiac 2g Na,low cholest Activity: No Restrictions, As Tolerated Follow Up/Referral: Follow up with general surgery for bedside debridement. Follow up with cardiology for pulmonary hypertension. Follow up with endocrinology for type 2 diabetes. Discharge Statement: "Patient was advised to return to the ER or call 911 if any headaches, dizziness, shortness of breath, chest pain, abdominal pain, bleeding, fevers, or worsening of medical condition. Patient was counseled about treatment plan, medications, possible side effects, patientverbalized understanding. All questions were answered to the best of my ability. This discharge took greater then 30 minutes in planning, reviewing documentation, counseling the patient, and discussing with other team members." ASSESSMENT ASSESSMENT Assessment Severe pulmonary hypertension DEJAN KRAMER DO Apr 18, 2024 11:58
[2024-04-18] MEDS ORDERED: ATORVASTATIN 20 MG TAB PO SCH (22:00)
== END 2024-04-18 18:30 | DRG 286 ==
LOC: ER 21:51 → EDBD 21:51 → TELE 04-13 01:50 → TELE-EAST 04-13 22:14
PROVIDERS: ADMIT Student in an Organized Health Care Education/Training Program; ATTEND Student in an Organized Health Care Education/Training Program
PROC: 30233N1 Transfusion of Nonautologous Red Blood Cells into Peripheral Vein, Percutaneous Approach (ICD-10-PCS; principal; 2024-04-13)
PROC: 4A023N8 Measurement of Cardiac Sampling and Pressure, Bilateral, Percutaneous Approach (ICD-10-PCS; 2024-04-17)
PROC: B211YZZ Fluoroscopy of Multiple Coronary Arteries using Other Contrast (ICD-10-PCS; 2024-04-17)
PROC: B216YZZ Fluoroscopy of Right and Left Heart using Other Contrast (ICD-10-PCS; 2024-04-17)
PROC: 05HF33Z Insertion of Infusion Device into Left Cephalic Vein, Percutaneous Approach (ICD-10-PCS; 2024-04-18)
PROC: B54NZZA Ultrasonography of Left Upper Extremity Veins, Guidance (ICD-10-PCS; 2024-04-18)
DX: I13.0 Hypertensive heart and chronic kidney disease with heart failure and stage 1 through stage 4 chronic kidney disease, or unspecified chronic kidney disease (principal); E11.00 Type 2 diabetes mellitus with hyperosmolarity without nonketotic hyperglycemic-hyperosmolar coma (NKHHC); I50.31 Acute diastolic (congestive) heart failure; J96.00 Acute respiratory failure, unspecified whether with hypoxia or hypercapnia; N17.0 Acute kidney failure with tubular necrosis; L03.115 Cellulitis of right lower limb; I31.39 Other pericardial effusion (noninflammatory); K92.2 Gastrointestinal hemorrhage, unspecified; L03.116 Cellulitis of left lower limb; E87.20 Acidosis, unspecified; I43 Cardiomyopathy in diseases classified elsewhere; E11.65 Type 2 diabetes mellitus with hyperglycemia; E78.5 Hyperlipidemia, unspecified; E11.22 Type 2 diabetes mellitus with diabetic chronic kidney disease; E66.813 Obesity, class 3; F15.10 Other stimulant abuse, uncomplicated; I27.20 Pulmonary hypertension, unspecified; N18.9 Chronic kidney disease, unspecified; N20.0 Calculus of kidney; I07.1 Rheumatic tricuspid insufficiency; D50.9 Iron deficiency anemia, unspecified; Z79.84 Long term (current) use of oral hypoglycemic drugs; Z79.4 Long term (current) use of insulin; Z82.49 Family history of ischemic heart disease and other diseases of the circulatory system; E11.628 Type 2 diabetes mellitus with other skin complications; Z68.39 Body mass index [BMI] 39.0-39.9, adult
CPT/HCPCS: 36415; 71045; 74177; 80048; 80053; 80202; 81001; 82306; 82570; 82728; 82962; 83036; 83540; 83550; 83605; 83735; 83880; 83970; 84100; 84156; 84300; 84484; 85025; 85610; 85730; 86803; 86850; 86900; 86901; 86920; 87040; 87077; 87186; 87205; 87340; 87426; 87804; 93005; 93306; 93460; 93566; 93926; 96374; 97110; 97116; 97163; 97530; 99152; G0378; J1335; J1756; J1815; J2250; J2405; J2543; Q9967